=== PATIENT | female | born 1950 | race Caucasian/White ===

== ENCOUNTER 2018-02-20 10:04 | Emergency (ER) | payer OTHER, SELFPAY ==
[2018-02-20 10:13] VITALS: BP 150/91; PULSE 61; RESP 16; TEMP 36.6; O2SAT 96
--- NOTE | 2018-02-20 10:25 | DI.REPORT_ITS ---
SYMPTOM/DIAGNOSIS: MID POSTERIOR CALF PAIN, ? FB LEFT LEG: Two views. No acute fracture, dislocation, lytic or sclerotic lesion seen. No periosteal reaction is identified. No radiopaque foreign bodies are seen in the soft tissues. IMPRESSION: No acute abnormality.
--- NOTE | 2018-02-20 10:26 | ED.GENADUL ---
Disposition Clinical Impression: Left posterior calf abrasion Disposition: HOME Condition: Good Instructions: Abrasion (ED) Additional Instructions: Leave dressing in place for 2 days time, then removed, gentle soap and water and pat dry. Socially changed to regular band aid dressing for another 1-2 days time. Take antibiotics as prescribed. Follow up with regular doctor if not improving in 1 week's time. Return to the emergency department he developed redness, discharge from the wound, or any other acute concerns. Prescriptions: Cephalexin [Keflex] 500 mg PO TID 7 Days capsule Medical Decision Making - Radiology Data Radiology results: image reviewed - Medical Decision Making This is a 67-year-old female who suffered a laceration/abrasion to the left posterior calf on Tuesday. She presents for evaluation today. May be developing early infection. She was referred to x-ray to rule out foreign body, and film unremarkable. Discussed with her home management including antibiotics cover for infection. She takes antiplatelets and is frequent bruising. She is at risk for infected hematoma which I discussed with her. She will follow-up with PMD if not improving in 1 week's time. Discussed return precautions to the ER in the interim History of Present Illness - General Chief complaint: Laceration Stated complaint: L LEG LACERATION/SPLINTERS Time Seen by Provider: 02/20/18 10:16 Source: patient, RN notes reviewed Mode of arrival: ambulatory Limitations: no limitations - History of Present Illness Initial comments: Left leg pain and laceration: 67-year-old female with the abrupt onset of mild, achy, left leg pain that has been constant since she lacerated against a wooden 0. This occurred on Tuesday. Mild discomfort has been present since that time. No acute exacerbating or appearing factors. No wound discharge, fever, redness. Just for evaluation. States her immunizations are up-to-date. - Related Data Ascorbic Acid [Vitamin C] 1,000 mg PO DAILY 11/21/12 C-Pap 1 ea IH DIRECTED 11/21/12 Maalox Max Quick Dissolve T 2 tab PO PRN tab.chew 11/21/12 Multivitamin with Minerals [One Daily Plus Minerals] 1 tab PO DAILY 11/21/12 Thiamine HCl 1 tab PO DAILY 11/21/12 Vitamin B Complex & Vit C No.3 [B Complex with Vitamin C] 1 cap PO DAILY 11/21/12 Vitamin E 2 cap PO DAILY 11/21/12 Cholecalciferol (Vitamin D3) [Vitamin D3] 2,000 unit PO DAILY #100 tab-cap 08/13/14 Clonazepam [Klonopin] 1 mg PO HS #30 tab-cap 06/01/16 Etodolac 500 mg PO BID 08/23/16 Aspirin E.c. [Ecotrin] 325 mg PO DAILY #100 tabec 06/09/17 Ergocalciferol (Vitamin D2) [Vitamin D2] 50,000 unit PO twic a week #8 cap 06/24/17 Clopidogrel Bisulfate [Clopidogrel] 75 mg PO DAILY #90 tablet 07/06/17 Rosuvastatin [Crestor] 20 mg PO QPM #90 tab 07/06/17 Tolterodine CR [Detrol LA] 2 mg PO DAILY #90 tab-cap 07/07/17 Lidocaine [Lidoderm] 1 each TP As directed #1 box 08/18/17 Pregabalin [Lyrica] 100 - 300 mg PO DIRECTED #360 cap 09/22/17 Albuterol Sulfate [Proair Hfa] 2 puff IH Q6H PRN #1 inhaler 09/28/17 Cyanocobalamin (Vitamin B-12) [Cyanocobalamin Injection] 1,000 mcg IM MONTHLY #3 vial 09/28/17 Syringe W-Cannula,Disp, 3 ml [Syringe] 1 each IM MONTHLY #3 syringe 01/13/18 Cephalexin [Keflex] 500 mg PO TID 7 Days capsule 02/20/18 Allergies Allergy/AdvReac Type Severity Reaction Status Date / Time adhesive Allergy Intermediate Skin Rash Unverified 02/20/18 10:16 doxycycline Allergy Unknown HIVES Unverified 02/20/18 10:16 duloxetine [Duloxetine] AdvReac Severe AGITATION Unverified 02/20/18 10:16 Rppdqiz-[id number]-Hss Reductase AdvReac Severe Myalgias Unverified 02/20/18 10:16 Inhibitor paroxetine AdvReac Intermediate IRRITABILIT Unverified 02/20/18 10:16 Y gabapentin AdvReac Mild Interacts Unverified 02/20/18 10:16 with other prescribed medications steristrips Allergy Intermediate glue Uncoded 02/20/18 10:16 causes blisters sx azul Allergy Intermediate blisters Uncoded 08/06/18 10:16 METAL Allergy Mild Skin Rash Uncoded 02/20/18 10:16 Review of Systems Other: For systems reviewed, otherwise negative Past Medical History - Past Medical History Medical history: CVA/TIA, hyperlipidemia, hypertension General Exam - General Limitations: no limitations General appearance: alert, in no apparent distress - Head Head exam: Present: atraumatic, normocephalic - Eye Eye exam: Present: normal apperance, EOMI - Neck Neck exam: Present: normal inspection, full ROM - Respiratory Respiratory exam: Absent: respiratory distress - Extremities Exam Extremities exam: Present: full ROM, tenderness, normal capillary refill, other (The left posterior calf has a linear, vertically oriented healing abrasion. Centrally tender but without fluctuance or erythema. No open wound). Absent: pedal edema, joint swelling - Neurological Exam Neurological exam: Present: alert, oriented X3 - Psychiatric Psychiatric exam: Present: normal affect, normal mood - Skin Skin exam: Present: warm, dry, intact Course Vital Signs - 24 hr 02/20/18 10:13 Temperature 36.6 C Pulse 61 Respiratory 16 Rate Blood Pressure 150/91 Pulse Oximetry 96
== END 2018-02-20 11:05 | disposition home or self-care (01) ==
PROVIDERS: Emergency Provider Emergency Medicine; PCP Family Medicine
DX: S80.812A Abrasion, left lower leg, initial encounter (principal); W26.8XXA Contact with other sharp object(s), not elsewhere classified, initial encounter; Z79.02 Long term (current) use of antithrombotics/antiplatelets; I10 Essential (primary) hypertension
CPT/HCPCS: 99283; 73590

== ENCOUNTER 2019-02-15 08:12 | Outpatient (CLI) | payer OTHER, SELFPAY ==
--- NOTE | 2019-02-15 06:00 | DI.RAD_ITS ---
SYMPTOM/DIAGNOSIS: LUMBAR SPONDYLOSIS PAIN CLINIC: Fluoroscopy Time: 100.8 sec Images submitted from the Pain Clinic demonstrate needle positioning over the lower lumbar spine in connection with a lumbar radiofrequency ablation. Please see Dr. Herrera's procedure report for further information.
[2019-02-15 09:31] VITALS: BP 143/87; PULSE 55; RESP 20; TEMP 36.2; O2SAT 95
[2019-02-15] MEDS: Lactated Ringers 1,000 ML 80 ML IV (10:08)
[2019-02-15] MEDS: fentaNYL 100 MCG/2 ML VIAL IVP (10:08)
[2019-02-15] MEDS: Midazolam 2 MG/2 ML VIAL IVP (10:08)
[2019-02-15] MEDS: Lidocaine 2% Pres-Free 5 ML VIAL IJ (10:50)
[2019-02-15] MEDS: Bupivacaine 0.5% Pres-Free 10 ML VIAL IJ (10:50)
[2019-02-15] MEDS: methylPREDNISolone ACETATE 40 MG/ML VIAL IM (10:51)
[2019-02-15 10:52] VITALS: BP 174/88; PULSE 56; RESP 24; O2SAT 98
--- NOTE | 2019-02-15 10:57 | PDOC.PAIN_ITS ---
Pain Clinic Procedure Note Current Active Problems Problem Status Onset Lumbosacral spondylosis without myelopathy LUMBAR/SACRAL MEDIAL BRANCH RADIOFREQUENCY WITH THE [employer] MACHINE ISAIAS ACUÑA has been referred to the [facility] for radiofrequency treatment of chronic axial back pain. ISAIAS has had long standing back pain thought to be facet joint generated and which has been refractory to other therapies. Local anesthetic medial branch blocks or intra-articular facet joint injections resulted in ISAIAS reporting reduction of the usual axial component of pain for at least the duration of the local anesthetic effect. COMMENTS:She had >12 months of relief with the last bilateral L3-L5DR RFA. I added the bilateral S1 lateral branch RFA to give better ablation of the L5-S1 facet joint. Patient was interviewed and the medical record reviewed. There were no medical, pharmacologic, radiographic or other structural contraindications to attempting fluoroscopically guided radiofrequency treatment. Risks and expected side effects as well as potential benefit of the procedure were reviewed and voiced concerns addressed. The printed consent form was signed and witnessed. Standard time-out procedure was performed. Patient was placed in the prone position on the fluoroscopy table and automated blood pressure cuff and pulse oximeter applied. The skin entry points for approaching the anatomic target points of the segmental medial branches of bila teral L3-L5DR and the bilateral S1 lateral brancheswere identified with fluoroscopy and marked. Following thorough Chlorhexadine preparation of the skin and draping and 1% lidocaine infiltration of the skin entry points and subcutaneous tissues, a single 18 guage curved 10 cm 10mm active tip radiofrequency cannula was placed under fluoroscopic guidance along or across the anatomic course of each respective segmental medial branch. Each placement was stimulated at 50Hz and les then 0.5V for medial branch sensory localization and the at 2Hz and up to 3 times the sensory voltage without any evidence of distal myotomal stimulation. 1cc of 1% ;idocaine was injected at each site. At each placement a continuous mode radiofrequency treatment was done at 90 degrees C for 90secs. I then injected 1/4 cc of Depomedrol (40mg/cc) and 1 cc of 0.5% Bupivacaine to each segmental nerve. This radiofrequency treatment should result in the denervation of the bilateral L4-L5 and L5-S1 FACET JOINTS}. A total of 4 facets were expected to be denervated from today's treatment. Vital signs were stable throughout the procedure and were as recorded in the docflowsheet by the nursing staff. If given, dosages of intravenous drugs for anxiolysis and analgesia were documented in the Medication Administration Record (MAR). Follow up plans and appointments were discussed. Post procedure instruction was given as documented in the nursing documentation and having met discharge criteria, ISAIAS was discharged from the [facility]. COMMENTS: If she gets at least 6 months of relief with this procedure, we can repeat if without repeating the LMBBs. CC: Thad Bar MD
== END 2019-02-15 08:32 ==
PROVIDERS: PCP Family Medicine; Visit Provider Preventive Medicine Occupational Medicine
DX: M47.817 Spondylosis without myelopathy or radiculopathy, lumbosacral region (principal)
CPT/HCPCS: 64635 ×2; 64636 ×2; 72100; J1030; J2250; J3010

== ENCOUNTER 2019-04-02 00:36 | Outpatient (CLI) | payer OTHER, SELFPAY ==
--- NOTE | 2019-04-02 07:41 | DI.DEXA_ITS ---
SYMPTOM/DIAGNOSIS: SCREENING FOR OSTEOPOROSIS, Z13.820 DEXA SCAN: The scanogram is unremarkable. For the left hip,a T score of -0.1 and a Z score of 1.4 indicate osteopenia and an increased fracture risk. For the lumbar spine, a T score of -1.0 and a Z score of 1.1 are within the normal range. For the left forearm, a T score of -2.1 and a Z score of -0.1 are consistent with osteopenia and an increased fracture risk.
--- NOTE | 2019-04-02 08:10 | DI.MAMMO_ITS ---
SYMPTOM/DIAGNOSIS: SCREENING, Z12.31 MAMMOGRAMS: Mammograms were interpreted according to the usual protocol including computer analysis with CAD system, tomosynthesis and C view imaging. The breast tissue is of moderate radiodensity. There is no dominant mass. There is a question regarding interval development of a small region of nodularity in the medial portion of the left breast, the finding noted on the craniocaudad image. There are no suspicious calcifications. SUMMARY: Question interval development of a small region of nodularity. Further assessment with compression spot films is recommended. Category 0. Breast density, Category B. MQSA ASSESSMENT OF FINDINGS: Incomplete: Needs additional imaging evaluation. Category 0. Patient will receive a letter notifying them of these results. BI-RADS category B. There are scattered areas of fibroglandular density.
== END 2019-04-02 00:56 ==
PROVIDERS: PCP Family Medicine; Visit Provider Nurse Practitioner
DX: Z12.31 Encounter for screening mammogram for malignant neoplasm of breast (principal); R92.8 Other abnormal and inconclusive findings on diagnostic imaging of breast; M85.88 Other specified disorders of bone density and structure, other site
CPT/HCPCS: 77063; 77067; 77080

== ENCOUNTER 2019-04-03 00:50 | Outpatient (CLI) | payer OTHER, SELFPAY ==
--- NOTE | 2019-04-03 09:24 | DI.MAMMO_ITS ---
EXAM: US BREAST LT LIMITED CLINICAL HISTORY: F/U MAMMO, LT BREAST NODULE TECHNIQUE: Ultrasound performed using standard protocol. COMPARISON: None. FINDINGS: Additional mammographic views left breast and left breast ultrasound are interpreted in conjunction. These examinations were obtained to evaluate questionable area of asymmetric density seen on recent mammogram in left breast. Additional mammographic views fail to show a discrete mass. Breast ultraso und shows no evidence of mass or cyst. IMPRESSION: No specific evidence of malignancy at this time. Follow-up unilateral left breast mammogram recommen ded in 6 months. Category 3, breast density category B.
== END 2019-04-03 01:10 ==
PROVIDERS: PCP Family Medicine; Visit Provider Nurse Practitioner
DX: Z12.31 Encounter for screening mammogram for malignant neoplasm of breast (principal); R92.8 Other abnormal and inconclusive findings on diagnostic imaging of breast; N64.59 Other signs and symptoms in breast
CPT/HCPCS: 76642; 77063; 77067

== ENCOUNTER 2019-12-13 01:31 | Outpatient (CLI) | payer OTHER, SELFPAY ==
--- NOTE | 2019-12-13 09:27 | DI.RAD_ITS ---
EXAM: XR HIP LT COMPLETE AP PELVIS INDICATION: fell, lt hip pain, M25.552,W19.XXXA. COMPARISON: None TECHNIQUE: 2D digital imaging was performed. FINDINGS: No fracture or dislocation is seen. The hip joint spaces are well maintained. There is mild bilatera l acetabular spurring, greater on the right. There is mild SI joint spurring. Degenerative changes ar e noted in the lower lumbar spine. DATA REPOSITORY: RADIATION DOSE DELIVERED:
--- NOTE | 2019-12-13 09:50 | DI.RAD_ITS ---
EXAM: XR LUMBAR SPINE COMPLETE INDICATION: fell, PAIN,W19.XXXA. COMPARISON: No exams were available for comparison TECHNIQUE: 2D digital imaging was performed. FINDINGS: Vertebral bodies are well maintained in height. There is mild narrowing of the L2-3 disc space, ecce ntric toward the right with there is mild levoscoliosis. There is also moderate narrowing of the L4- 5 disc space, eccentric toward the left. The remaining disc spaces are relatively well maintained. Facet degenerative changes are prominent at L4-5 and L5-S1. No spondylolysis or spondylolisthesis is seen. There is surgical clips in the right upper quadrant. The aorta is calcified. The SI joints show minimal degenerative changes. IMPRESSION: Degenerative disc changes facet degenerative changes, greatest at L4-5. DATA REPOSITORY: RADIATION DOSE DELIVERED:
== END 2019-12-13 01:51 ==
PROVIDERS: PCP Family Medicine; Visit Provider Family Medicine
DX: M25.552 Pain in left hip (principal); M53.3 Sacrococcygeal disorders, not elsewhere classified; W19.XXXA Unspecified fall, initial encounter; M54.5 Low back pain; M51.37 Other intervertebral disc degeneration, lumbosacral region; M47.817 Spondylosis without myelopathy or radiculopathy, lumbosacral region
CPT/HCPCS: 72110; 73502

== ENCOUNTER 2019-12-19 02:09 | Outpatient (CLI) | payer OTHER, SELFPAY ==
--- NOTE | 2019-12-19 08:30 | DI.MAMMO_ITS ---
EXAM: MG MAMMO DIAGNOSTIC UNI CLINICAL HISTORY: 6 MO F/U LEFT BREAST, R92.8, Z09 TECHNIQUE: Mammograms were interpreted according to the usual protocol including computer analysis w [employer] CAD system, tomosynthesis and C-view imaging. COMPARISON: FINDINGS: Today's left breast mammogram was obtained to follow previously noted questionable area of asymmetric density seen in the left breast on prior examination of March 2019. No significant change or de creased prominence of questionable area of asymmetric density on today's examination. No new mass or or clumped microcalcification seen. IMPRESSION: No specific evidence of malignancy at this time. I would suggest that routine screening examinations resume with a bilateral mammogram in 6 months Category: BI-RADS Cat 3 - 6 month - Probably Benign Finding: Recommend follow-up mammography in 6 months Breast Density - Category B - Scattered areas of fibroglandular density:
== END 2019-12-19 02:29 ==
PROVIDERS: PCP Family Medicine; Visit Provider Nurse Practitioner
DX: Z12.31 Encounter for screening mammogram for malignant neoplasm of breast (principal); R92.8 Other abnormal and inconclusive findings on diagnostic imaging of breast; N64.59 Other signs and symptoms in breast
CPT/HCPCS: 77061; 77065; G0279

== ENCOUNTER 2020-01-22 08:20 | Outpatient (CLI) | payer OTHER, SELFPAY ==
[2020-01-22 08:34] VITALS: BP 136/83; PULSE 50; RESP 16; TEMP 36.5; O2SAT 98
--- NOTE | 2020-01-22 08:36 | PDOC.PAIN_ITS ---
Pain Clinic Procedure Note Procedure Note Procedure Note: Bilateral Lumbar Radiofrequency with Coolief Machine PROCEDURE NOTE Date of Service: January 22, 2020 Patient: ISAIAS ACUÑA Provider: Sienna Carmona MD Pre Operative Diagnosis: lumbar spnodylosis Post Operative Diagnosis: same as above Comment: patient had sustained pain relief from prior bilateral lumbar RFA. Last RFA was performed by Dr Herrera on 02/2019. Today will be her third time undergoing Coolief lumbar radiofrequency ablation for the medial branch nerves. Patient has a history of CVA (sppech disturbance and P1 segment stenosis on CTA) for which she is on plavix. According to TAMARA guidelines, she was asked to discontinue her Plavix for 7 days to minimize risk of bleeding. PROCEDURE: Radiofrequency Ablation of medial branches - BILATERAL L3 L4 L5- DR, S1 ISAIAS ACUÑA was brought into the fluoroscopy suite and positioned into the prone position on the fluoroscopy table and allowed to adjust to a position of comfort. A grounding pad was placed on the left lower abdomen. The lumbar region was widely prepped with a chloraprep solution, allowed to air dry and draped in standard sterile surgical fashion. Local anesthesia was provided by 15mL of 1% LIdocaine delivered with a 25g needle. A 17g 100mm radiofrequency introducer needle was placed to the planned anatomic targets guided with intermittent fluoroscopy with a perpendicular approach to terminally place at the junction of the superior articular process and the trans verse process of the left L3, L4, L5-DR and S1. The stylets were removed and radiofrequency probes with a 4mm active tip were then inserted. Needle tip position of the probes was verified in the AP, oblique, and lateral views. At each site, the medial branch nerve was stimulated at 2 Hz to a maximum 2 volts determined to finalize safe needle and electrode placement. The patient was awake and responsive during this portion of the procedure. Patient denied any motor stimulation down her left lower extremity. Each target was anesthetized with 1 mL of 2% Lidocaine for anesthesia for lesioning and then each target was lesioned at 80 degrees Celsius for 2 minutes and 30 seconds. Tissue impedences were noted to be between 250 and 500 Ohms. Electrodes and needles were then removed and bandages placed over the needle placement sites. Then using the same approach, a 17g 100mm radiofrequency introducer needle was place to the anatomic targets guided with fluoroscopy with a perpendicular a pproach to terminally place at the junction of the superior articular process and the transverse process of the right L3, L4, L5-DR and S1. Leonard were confirmed in AP, isplateral oblique views. At approximately 9:42AM, patient was observed to be moaning. RN asked patient what was wrong, and she replied it's nothing, just keep going. However, patient was seen to be uncomfortable in the prone position. Her vital signs remained stable. With multiple probing, patient finally answered my chest feels tight, like someone is stabbing me with a knife. She denied jaw pain, radiating arm pain. Her vitals were recorded as BP 168/97 and HR 51. At this point, she has already received 1mg of IV versed and 50mcg of IV fentanly for IV sedation for lumbar RFA. Patient maintained her mentation. Procedure was aborted due to patient's complaint of active and persistent chest pain that is new. Emergency response system was activated with staff arriving to fluoroscopic suite at 9:52AM. Patient was transferred to [facility] and wheeled to emergency room. Report was given to Emergency Room physician Dr Marcello Carter at 9:58AM. POST PROCEDURE EVALUATION: [] patient developed active chest pain mid-way through procedure. Left L3, L4, L5-Dr, S1 MBB was successfully ablated which results in denervation of L4-5, L5- S1 facet joints (total of 2 joints). Right sided lumbar MBB was not ablated. Procedure aborted. [] Ms Mcmullen was transferred to Emergency Room for further work up of chest pain. Her pile driver engineer Shahid was notified. [] Given patient's unreliable historian during procedure, not reporting her chest pain/pressure at immediate onset of symptoms, patient demanding pain clinic staff to continue with her procedure and refusing to go to emergency room while having active chest pain, for future interventional pain procedures, she would need medical clearance prior to scheduling. [] Patient has co-morbidities including history of CVA, likely CAD, history of syncope, which places her at high risk category, alternative therapeutic modalities should be maximized for pain relief I personally performed this entire procedure. Sienna Carmona MD Attending Physician
[2020-01-22] MEDS: Lactated Ringers 1,000 ML 80 ML IV (09:07)
[2020-01-22] MEDS: fentaNYL 100 MCG/2 ML VIAL IVP ×2 (09:20→09:36)
[2020-01-22] MEDS: Midazolam 2 MG/2 ML VIAL IVP (09:20)
[2020-01-22] MEDS: Lidocaine 2% Pres-Free 5 ML VIAL IJ (09:30)
[2020-01-22] MEDS: methylPREDNISolone ACETATE 40 MG/ML VIAL IJ (09:30)
[2020-01-22] MEDS: Lidocaine 1% Pres-Free 30 ML VIAL IJ (09:30)
[2020-01-22] MEDS: Bupivacaine 0.5% Pres-Free 10 ML VIAL IJ (09:30)
[2020-01-22 09:53] VITALS: BP 149/115; PULSE 57; RESP 18; O2SAT 99
--- NOTE | 2020-01-22 10:00 | DI.RAD_ITS ---
EXAM: XR PAIN CLINIC LUMBAR SP 2V CLINICAL HISTORY: Dx:Lumbar Spondylosis. TECHNIQUE: Fluoroscopy was provided for the referring physician for guidance with performing injecti on procedure. COMPARISON: No exams were available for comparison FINDINGS: Please see procedure note for details. Fluoro time: 64.6 sec RADIATION DOSE DELIVERED:
== END 2020-01-22 08:40 ==
PROVIDERS: PCP Family Medicine; Visit Provider Internal Medicine
DX: M47.816 Spondylosis without myelopathy or radiculopathy, lumbar region (principal)
CPT/HCPCS: 64635; 64636; 72100; J1030; J2250; J3010

== ENCOUNTER 2020-01-22 09:53 | Observation (INO) | payer OTHER, SELFPAY ==
[2020-01-22] VITALS (30 sets, daily range): BP systolic 121–164; BP diastolic 66–98; PULSE 46–62; RESP 9–23; TEMP 35.9–36.8; O2SAT 95–99
--- NOTE | 2020-01-22 | DI.NM_ITS ---
APPROVED REPORT Exam: Exercise Treadmill Patient Location: In-Patient Room/Bed: Stress Nurse: Ninfa Gamboa RN BMI: 36.47 Baseline Rhythm: Sinus Rhythm, Sinus Bradycardia Indications: Chest pain Medical History Medical History: Angina, Depression, HTN, Hyperlipidemia Cardiac Medications: Clopidogrel. Rosuvastatin., Allergies: Doxycycline. Duloxetine. Statins. Paroxetine. Gabapentin. Metal. Cardiac Risk Factors: HTN, Hyperlipidemia, FHX of CAD, Asthma, CVD, HUSSEIN Exercise History: Indeterminate Physical Disabilities: Back Lung Sounds: Clear to auscultation Heart Sounds: Regular Stress Test Details Test: Pharmacologic stress testing performed using 0.4 mg of regadenoson per 5 mL given IV over 10 s econds. Nuclear Acquisition: Rest Tc-99m/Stress Tc-99m 1 day Rest Isotope: Tc-99m Sestamibi. Dose: 10.5 Date: 01/22/2020 Injection Time: 1400 Stress Isotope: Tc-99m Sestamibi. Dose: 32.7 Date: 01/22/2020 Injection Time: 1520 HR Resting HR Supine: 55 bpm Max Heart Rate (APMHR): 149 bpm Target HR (85% APMHR): 126 bpm Max HR Achieved: 72 bpm % of APMHR: 48 Recovery HR: 64 bpm HR response to stress: Normal HR response to stress BP Resting BP Supine: 130/100 mmHg Max BP: 124/90 mmHg Recovery BP: 124/90 mmHg BP response to stress: Normal blood pressure response to stress. ECG Resting ECG: Sinus Rhythm Ectopy: none Stress ECG: Sinus Rhythm ST Change: none Arrhythmia: None Recovery ECG: Sinus Rhythm Recovery ST Change: none Clinical Stress Symptoms: No significant symptoms post Lexiscan injection Stress ECG Conclusion 1. Echocardiogram was within normal limits 2. This is a pharmacologic myocardial perfusion imaging study. The electrocardiographic portion of t he test was nondiagnostic due to inadequate heart rate 3. There were no significant dysrhythmias Stress Test Summary STAGE HR BP Symptoms NOTES Supine 55 130/100 1 min post Lexiscan injection 67 110/98 3 min post Lexiscan injection 72 116/90 6 min post Lexiscan injection 64 124/90 MPI Conclusion Normal myocardial perfusion without evidence of ischemia or infarction Calculated ejection fraction was 66% Radiologist Interpretation Radiologist agrees with Water Fabricator Operator's Interpretation. Radiologist Interpretation by: Alyssa Nguyen MD Interpretation Date/Time: 01/23/2020 08:43:21
--- NOTE | 2020-01-22 09:45 | RT.EKG_ITS ---
APPROVED REPORT Exam: Resting ECG Patient Location: E HR:51 bpm ECG Measurements Heart Rate 51 AXIS VT 175 P 50 QRSd 109 QRS -30 QT 454 T 36 QTc 418 <Conclusion> Sinus bradycardia...rate< 60 Left axis deviation...QRS axis (-30,-90) I have reviewed and interpreted ECG and agree with software generated interpretation.
[2020-01-22 10:12] LABS: Abs Immature Grans 0.01 k/cumm (0.0-0.09); Absolute Basophil Count 0.03 k/cumm (0.0-0.2); Absolute Eosinophil Count 0.18 k/cumm (0.0-0.7); Absolute Lymphocyte Count 1.39 k/cumm (1.2-3.4); Absolute Monocyte Count 0.44 k/cumm (0.11-0.7); Absolute Neutrophil Count 3.01 k/cumm (1.2-6.7); Basophils % 0.6; Eosinophils % 3.6; HCT 38.3 % (36.0-46.0); HGB 12.4 g/dL (12.0-15.5); Immature Grans % 0.2 %; Lymphocytes % 27.5; Mean Corp. HGB Concentration 32.4 g/dL (32.0-36.0); Mean Corpuscular Hemoglobin 28.4 pg (27.0-33.0); Mean Corpuscular Volume 87.6 fL (80-95); Mean Platelet Volume 9.3 fL (8.0-11.0); Monocytes % 8.7; Neutrophils % 59.4; Platelet Count 177 x1000/uL (130-400); RBC 4.37 m/cumm (4.00-5.20); RBC Distribution Width 14.6 % (11.7-14.6); White Blood Cell Count 5.06 k/cumm (4.4-10.8)
[2020-01-22 10:31] LABS: ALT 98 U/L (14-59); AST 54 U/L (15-37); Albumin 3.5 g/dL (3.4-5.0); Alkaline Phosphatase 66 U/L (46-116); Anion Gap 8.2 mmol/L (3-11); BUN 17 mg/dL (7-18); Bilirubin, Total 0.6 mg/dL (0.2-1.0); CO2 25.8 mmol/L (21.0-32.0); CREATININE 0.79 mg/dL (0.55-1.02); Calcium 9.2 mg/dL (8.5-10.1); Chloride 107 mmol/L (98-107); Glucose 115 mg/dL (74-106); PTT Activated 25.2 sec (21.0-31.4); Potassium 4.4 mmol/L (3.5-5.1); Sodium 141 mmol/L (136-145); Total Protein 6.5 g/dL (6.4-8.2); Troponin I < 0.05 ng/mL (<0.06)
--- NOTE | 2020-01-22 10:41 | DI.RAD_ITS ---
EXAM: XR PORTABLE CHEST AP CLINICAL HISTORY: chest pain TECHNIQUE: 2D digital imaging was performed. COMPARISON: No exams were available for comparison FINDINGS: LUNGS: Clear. No pleural abnormality seen. HEART: Normal. MEDIASTINUM: Normal. OTHER FINDINGS: Postsurgical changes of the right shoulder IMPRESSION: No acute pulmonary findings. DATA REPOSITORY: RADIATION DOSE DELIVERED:
[2020-01-22 10:49] LABS: D-Dimer 250 ng/mlFEU (<500)
--- NOTE | 2020-01-22 10:51 | ED.GENADUL_ITS ---
Discharge Plan Disposition Patient Disposition: [facility] INPATIENT Condition: Serious Discharge Details Chief Complaint: Chest Pain Clinical Impression: Chest pain Admit Date/Time: 01/22/20 11:31 Admit Provider: Dottie Colón Attending Provider: Dottie Colón Primary Care Provider: Thad Bar ED Provider: Marcello Carter Hospital Course Hospital Course: This is a 69 y.o female brought to emergency department after having CP during ablation for her lower back. They had completed the left side successfully, when starting right side she began to have a sharp chest pain prompting staff to alert a rapid response and brought patient to ED. In the ED she was found to have unremarkable labs, negative troponin, nondiagnostic ECG. She was admitted observation for stress test and overnight cardiac monitoring. Overnight she remained in normal sinus rhythm on the monitor with no further episodes of chest pain, she states her pain was reproducible at the time it occurred. her stress test was negative for evidence of ischemia and showed Normal myocardial perfusion without evidence of ischemia or infarction Calculated ejection fraction was 66%. she was advised to resume usual medications and follow up outpatient with pcp. her spinal ablation with be rescheduled through the pain clinic. they will call her to reschedule. discharge plan discussed with dr Colón who is in agreement. Discharge Instructions Instructions: Chest Wall Pain (GEN) Additional Instructions: continue usual medications your pain clinic appointment will be rescheduled, they will call you with appointment. Forms: Nursing Discharge Form Referrals: [facility] [Provider Group] (The office will give you a call) China Myers, LOT PORTER [NURSE PRACTITIONER] - 01/28/20 11:00 am Discharge Data Discharge Date/Time-TO BE ENTERED AT DEPARTURE: 01/22/20 12:16 Medical Decision Making 1104??69-year-old female multi medical problems including history of art eriosclerotic cardiovascular disease, prior CVA, hypertension, hyperlipidemia, here with chest pain during outpatient lumbar spine ablation pain procedure. Chest pain now resolved. Patient is bradycardic and normotensive, saturating well in no respiratory distress. Consider ACS. ECG nondiagnostic. Initial troponin negative. I considered pulmonary embolism: D-dimer negative. Mild elevation of AST and ALT noted. Chest x-ray, portable, was reviewed and interpreted by me: Nondiagnostic, no acute cardiopulmonary disease noted. Official radiology interpretation pending. I called and spoke with Dr. Colón discussed ED presentation and course, she is looking into potential stress test availability for today. 1115??patient given Plavix 300 mg and aspirin 81 mg. 1128??I spoke with Dr. Colón who will plan to admit the patient with plan for stress test and cardiac monitoring overnight. Lab Data Lab results reviewed: Yes I reviewed the patient's lab results. ECG Data Attestation: I personally reviewed and interpreted this ECG (s) as follows: (Bradycardia, see report) HPI General Mode of arrival: wheelchair . Date/Time Provider Initiated Documentation: 01/22/20 09:54 . Limitations to Documentation: no limitations . Information obtained by: patient and RN/MD . HPI Narrative: 69-year-old female with multiple medical problems including listed prior history of arteriosclerotic cardiovascular disease, CVA, hypertension, hyperlipidemia, here with chief complaint of chest discomfort. Patient was having outpatient pain procedure, lumbar spine ablation, and was noted to develop central chest discomfort during the procedure. She was sent here post procedure for evaluation. Patient notes pain came on during procedure. Pain described as sharp and focal left parasternal with no radiation. No modifiers. Pain now resolved. Of note, patient has been off Plavix for 1 week preprocedurally. No associated shortness of breath. No calf pain. Patient denies history of cardiac surgery or cardiac stenting. Related Data Home Medications Medication Instructions Recorded Confirmed B Complex Plus Vitamin C 1 cap PO DAILY 11/21/12 01/28/20 C-Pap 1 ea INHALATION DIRECTED 11/21/12 01/28/20 Maalox Max Quick Dissolve T 2 tab PO PRN tab.chew 11/21/12 01/28/20 ascorbic acid (vitamin C) 1,000 mg PO DAILY 11/21/12 01/28/20 multivitamin with minerals [One 1 tab PO DAILY 11/21/12 01/28/20 Daily Plus Minerals] thiamine HCl (vitamin B1) 1 tab PO DAILY 11/21/12 01/28/20 vitamin E 2 cap PO DAILY 11/21/12 01/28/20 albuterol sulfate [ProAir HFA] 2 puff INHALATION Q6H PRN #1 09/28/17 01/28/20 inhaler BD Blunt Plastic Cannula #3 syringe 01/13/18 01/28/20 clopidogrel 75 mg tablet 75 mg PO DAILY #90 tab 08/30/19 01/28/20 pregabalin 100 mg capsule 100 - 300 mg PO DIRECTED #360 08/30/19 01/28/20 cap rosuvastatin 20 mg tablet 20 mg PO QPM #90 tab 08/30/19 01/28/20 tolterodine 2 mg capsule,extended 2 mg PO DAILY #90 tab-cap 08/30/19 01/28/20 release 24 hr cyanocobalamin (vitamin B-12) 1,000 mcg IM MONTHLY #3 vial 10/26/19 01/28/20 1,000 mcg/mL injection solution ergocalciferol (vitamin D2) 1,250 50,000 unit PO twic a week #8 cap 11/30/19 01/28/20 mcg (50,000 unit) capsule clonazepam 1 mg tablet See Rx Instructions .ROUTE HS #60 12/06/19 01/28/20 tab-cap cholecalciferol (vitamin D3) 50 2,000 unit PO DAILY #90 tab-cap 01/15/20 01/28/20 mcg (2,000 unit) capsule hydrocodone-acetaminophen 1 tab PO DAILY PRN PRN 01/22/20 01/28/20 levothyroxine 25 mcg PO DAILY 01/22/20 01/28/20 iron polysacch cplx 150 mg 1 cap PO DAILY #90 cap 01/28/20 01/28/20 iron-vit B12 25 mcg-folic acid 1 mg capsule metformin 500 mg tablet,extended 1,500 mg PO DAILY tab 01/28/20 01/28/20 release 24 hr Previous Rx's Medication Instructions Recorded albuterol sulfate [ProAir HFA] 2 puff INHALATION Q6H PRN #1 09/28/17 inhaler BD Blunt Plastic Cannula #3 syringe 01/13/18 clopidogrel 75 mg tablet 75 mg PO DAILY #90 tab 08/30/19 pregabalin 100 mg capsule 100 - 300 mg PO DIRECTED #360 08/30/19 cap rosuvastatin 20 mg tablet 20 mg PO QPM #90 tab 08/30/19 tolterodine 2 mg capsule,extended 2 mg PO DAILY #90 tab-cap 08/30/19 release 24 hr cyanocobalamin (vitamin B-12) 1,000 mcg IM MONTHLY #3 vial 10/26/19 1,000 mcg/mL injection solution ergocalciferol (vitamin D2) 1,250 50,000 unit PO twic a week #8 cap 11/30/19 mcg (50,000 unit) capsule clonazepam 1 mg tablet See Rx Instructions .ROUTE HS #60 12/06/19 tab-cap cholecalciferol (vitamin D3) 50 2,000 unit PO DAILY #90 tab-cap 01/15/20 mcg (2,000 unit) capsule iron polysacch cplx 150 mg 1 cap PO DAILY #90 cap 01/28/20 iron-vit B12 25 mcg-folic acid 1 mg capsule Allergies Allergy/AdvReac Type Severity Reaction Status Date / Time adhesive Allergy Intermediate Skin Rash Verified 01/28/20 11:08 doxycycline Allergy Unknown HIVES Verified 01/28/20 11:08 duloxetine [Duloxetine] AdvReac Severe AGITATION Verified 01/28/20 11:08 Nbsoqfb-Qod-Zlg Reductase AdvReac Severe Myalgias Verified 01/28/20 11:08 Inhibitor paroxetine AdvReac Intermediate IRRITABILIT Verified 01/28/20 11:08 Y gabapentin AdvReac Mild Interacts Verified 01/28/20 11:08 with other prescribed medications steristrips Allergy Intermediate glue Uncoded 01/22/20 08:30 causes blisters sx azul Allergy Intermediate blisters Uncoded 01/22/20 08:30 METAL Allergy Mild Skin Rash Uncoded 01/22/20 08:30 General Stated Complaint: Chest Pain VERO: 2 Review of Systems All systems reviewed & are unremarkable except as noted in HPI and below Constitutional Constitutional: Reports fatigue Cardiovascular Cardiovascular: Reports as per HPI Endocrine Endocrine: Reports fatigue PFSH Medical History Achilles tendon disorder ASCVD (arteriosclerotic cardiovascular disease) Asthma Balance problem Carpal tunnel syndrome of right wrist Cerebrovascular accident (CVA) due to stenosis of posterior cerebral artery Depressive disorder Disorder of vitamin B12 Essential hypertension H/O ETOH abuse Headache Herpes zoster Hirsutism History of alcohol abuse (Inactive 05/13/15) not drinking at this time Hyperlipidemia Hyperparathyroidism Low back pain with sciatica Low vitamin D level Migraine Neck pain Non-alcoholic fatty liver disease NPDR (nonproliferative diabetic retinopathy) Obesity HUSSEIN (obstructive sleep apnea) Primary fibromyalgia syndrome Retinal detachment Shoulder pain Vasodepressor syncope Visual disturbance Surgical History Abdominal hysterectomy (~1985) endometriosis; 1 ovary remains Arthroscopy, Shoulder (~07/2008) RIGHT Cholecystectomy (~1982) EXCISION OF SHOULDER (~09/2006) EXCISION OF RIGHT DISTAL CALVICLE Fracture, Open Treatment (~04/2006) INT FIX FINGER Gastric Bypass (~2001) History of gastric bypass (Inactive) Endocrinology following vitamin D, Vitamin B12 & iron PINKY REPAIR LEFT Family History Mother , 87 Essential hypertension Heart disease Hyperlipidemia Asthma Lung cancer Father , 58 Heart disease Hyperlipidemia Alcohol abuse Brother Heart disease Substance abuse Maternal Grandfather Hyperlipidemia Paternal Grandfather No problems noted. Maternal Grandmother Kidney disease Paternal Grandmother No problems noted. Sister No problems noted. Social History Smoking/Tobacco Use Status: Former Tobacco Use Quit Date: 07/18/83 Alcohol Intake: former Drug use: Never Substance use type: does not use Caregiver/Support person: No Household members: spouse Housing: other Details: RV Pets and animals: Yes Pets and animals: dog(s) Sexually active: No Do you think of yourself as: straight/heterosexual Current gender identity: female What is your relationship status?: How often do you talk on the phone with friends or family?: three or more times per week How often do you get together with friends or relatives?: three or more times per week How often do you attend spiritism or anabaptist services?: decline to answer Do you belong to any clubs or organized social groups?: no Panel score (0-1 are the most socially isolated patients): 2 What type of physical activity do you participate in: walking Duration: 15-30 minutes/day Frequency: daily Jodi/Latter-Day: None Special jodi needs: No Seatbelt use: always Drive intox or ride 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 Do you feel safe at home: Yes Do you feel safe in your relationship?: Yes Exam Const General: cooperative and no acute distress HENMT Mouth: moist mucous membranes Eyes Conjunctivae: normal conjunctivae Sclera: normal sclerae Neck Neck: trachea midline and supple Resp Auscultation: clear to auscultation bilaterally, no rales, no rhonchi and no wheezes Cardio Jugular venous pressure: no JVD Rate: bradycardic (50 bpm) Rhythm: regular rhythm Heart Sounds: no murmurs Pulses: radial pulses present bilaterally 1+ GI Palpation: soft, not firm, no guarding, no masses, not rigid and nontender Skin General skin exam: no rashes or lesions noted Neuro General: patient alert, patient awake, patient oriented x3 and tone normal Extrem General: no calf tenderness and edema Laterality: bilateral (Trace) Psych Appearance: grossly normal Mental Status: mental status grossly normal Speech and Movement: speech and movement normal Course Vital Signs Vital signs: Vital Signs Respiratory Rate 23 01/22/20 09:58 Temperature 36.6 C 01/22/20 10:00 Temperature Source Skin 01/22/20 10:00 Pulse 47 L 01/22/20 10:31 Pulse 48 L 01/22/20 10:40 Respiratory Rate 16 01/22/20 10:40 Respiratory Effort Non-Labored 01/22/20 10:17 Respiratory Depth Normal 01/22/20 10:17 Respiratory Pattern Normal 01/22/20 10:17 Blood Pressure 141/86 H 01/22/20 10:31 Blood Pressure Mean 100 01/22/20 10:31 Blood Pressure Position Supine 01/22/20 10:00 Pulse Oximetry 96 01/22/20 10:40 Oxygen Delivery Method Room Air 01/22/20 10:00 Oxygen Flow Rate 0 01/22/20 10:00 Pain Level 6 01/22/20 10:17 Lab/Test Results Lab/Test Results: Laboratory Tests Range/Units 01/22/20 01/22/20 01/22/20 10:00 10:00 10:00 WBC (4.4-10.8) k/cumm 5.06 RBC (4.00-5.20) m/cumm 4.37 Hgb (12.0-15.5) g/dL 12.4 Hct (36.0-46.0) % 38.3 MCV (80-95) fL 87.6 MCH (27.0-33.0) pg 28.4 MCHC (32.0-36.0) g/dL 32.4 RDW (11.7-14.6) % 14.6 Plt Count (130-400) x1000/uL 177 MPV (8.0-11.0) fL 9.3 Immature Gran % % 0.2 Neutrophils % 59.4 Lymphocytes % 27.5 Monocytes % 8.7 Eosinophils % 3.6 Basophils % 0.6 Absolute Neutrophils (1.2-6.7) k/cumm 3.01 Absolute Lymphocytes (1.2-3.4) k/cumm 1.39 Absolute Monocytes (0.11-0.7) k/cumm 0.44 Absolute Eosinophils (0.0-0.7) k/cumm 0.18 Absolute Basophils (0.0-0.2) k/cumm 0.03 APTT (21.0-31.4) sec 25.2 D-Dimer (<500) ng/mlFEU 250 Sodium (136-145) mmol/L 141 Potassium (3.5-5.1) mmol/L 4.4 Chloride (98-107) mmol/L 107 Carbon Dioxide (21.0-32.0) mmol/L 25.8 Anion Gap (3-11) mmol/L 8.2 BUN (7-18) mg/dL 17 Creatinine (0.55-1.02) mg/dL 0.79 Estimated GFR/1.73 m2 (mL/min/1.73m2) >= 60.00 Glucose (74-106) mg/dL 115 H Calcium (8.5-10.1) mg/dL 9.2 Magnesium (1.8-2.4) mg/dL 2.0 Total Bilirubin (0.2-1.0) mg/dL 0.6 AST (15-37) U/L 54 H ALT (14-59) U/L 98 H Alkaline Phosphatase (46-116) U/L 66 Troponin I (<0.06) ng/mL < 0.05 Total Protein (6.4-8.2) g/dL 6.5 Albumin (3.4-5.0) g/dL 3.5
[2020-01-22] MEDS: Clopidogrel 300 MG TAB PO (11:13)
[2020-01-22] MEDS: Aspirin 81 MG CHEW PO (11:32)
[2020-01-22 13:55] LABS: TSH 2.06 uIU/mL (0.36-3.74)
--- NOTE | 2020-01-22 14:30 | W.PM.HP.N ---
Date of service: 01/22/20 Time of Service: 14:31 Assessment and Plan Assessment and plan (1) Chest pain: Start date: 01/22/20 Start time: 14:40 Status: Acute Assessment and plan: On teley for CP during ablation to lower back. CP resolved. ECG nondiagnostic. Stress scheduled for today. Troponins negative (2) Obstructive sleep apnea syndrome: Start date: 01/22/20 Start time: 14:46 Status: Acute Assessment and plan: Using Bipap from home. Continue bipap (3) DVT prophylaxis: Start date: 01/22/20 Start time: 14:47 Status: Acute Assessment and plan: Heparin subcu Above case discussed with Dr. Colón who is in agreement. History of Present Illness History of Present Illness Chief Complaint: CHEST PAIN Narrative: 69 y.o female brought to emergency department after having CP during ablation for her lower back. Left side was successful, when starting right side she began to have a sharp chest pain prompting staff to alert MANUFACTURING COST ESTIMATOR and bring patient to ED. In the ED she was found to have unremarkable labs, negative troponin, nondiagnostic ECG. She has been asked to be admitted for Stress test and overnight cardiac monitoring. She is having a stress today which will be read in the morning and possible discharge after. She denies CP, SOB,N/V/D Review of Systems All systems reviewed & are unremarkable except as noted in HPI and below PFSH Medical History Achilles tendon disorder ASCVD (arteriosclerotic cardiovascular disease) Asthma Balance problem Carpal tunnel syndrome of right wrist Cerebrovascular accident (CVA) due to stenosis of posterior cerebral artery Depressive disorder Disorder of vitamin B12 Essential hypertension H/O ETOH abuse Headache Herpes zoster Hirsutism History of alcohol abuse (Inactive 05/13/15) not drinking at this time Hyperlipidemia Hyperparathyroidism Low back pain with sciatica Low vitamin D level Migraine Neck pain Non-alcoholic fatty liver disease NPDR (nonproliferative diabetic retinopathy) Obesity HUSSEIN (obstructive sleep apnea) Primary fibromyalgia syndrome Retinal detachment Shoulder pain Vasodepressor syncope Visual disturbance Surgical History Abdominal hysterectomy (~1985) endometriosis; 1 ovary remains Arthroscopy, Shoulder (~07/2008) RIGHT Cholecystectomy (~1982) EXCISION OF SHOULDER (~09/2006) EXCISION OF RIGHT DISTAL CALVICLE Fracture, Open Treatment (~04/2006) INT FIX FINGER Gastric Bypass (~2001) History of gastric bypass (Inactive) Endocrinology following vitamin D, Vitamin B12 & iron PINKY REPAIR LEFT Family History Mother , 87 Essential hypertension Heart disease Hyperlipidemia Asthma Lung cancer Father , 58 Heart disease Hyperlipidemia Alcohol abuse Brother Heart disease Substance abuse Maternal Grandfather Hyperlipidemia Paternal Grandfather No problems noted. Maternal Grandmother Kidney disease Paternal Grandmother No problems noted. Sister No problems noted. Social History Smoking/Tobacco Use Status: Former Tobacco Use Quit Date: 07/18/83 Alcohol Intake: former Drug use: Never Substance use type: does not use Caregiver/Support person: No Household members: spouse Housing: other Details: RV Pets and animals: Yes Pets and animals: dog(s) Sexually active: No Do you think of yourself as: straight/heterosexual Current gender identity: female What is your relationship status?: How often do you talk on the phone with friends or family?: three or more times per week How often do you get together with friends or relatives?: three or more times per week How often do you attend congregation or buddhism services?: decline to answer Do you belong to any clubs or organized social groups?: no Panel score (0-1 are the most socially isolated patients): 2 What type of physical activity do you participate in: walking Duration: 15-30 minutes/day Frequency: daily Jodi/Jainism: None Special jodi needs: No Seatbelt use: always Drive intox or ride w/intox 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 Do you feel safe at home: Yes Do you feel safe in your relationship?: Yes Meds Home Medications and Allergies Home Medications Medication Instructions Recorded Confirmed Type B Complex Plus Vitamin C 1 cap PO DAILY 11/21/12 01/22/20 History C-Pap 1 ea INHALATION DIRECTED 11/21/12 01/22/20 History Maalox Max Quick Dissolve T 2 tab PO PRN tab.chew 11/21/12 01/22/20 History ascorbic acid (vitamin C) 1,000 mg PO DAILY 11/21/12 01/22/20 History multivitamin with minerals [One 1 tab PO DAILY 11/21/12 01/22/20 History Daily Plus Minerals] thiamine HCl (vitamin B1) 1 tab PO DAILY 11/21/12 01/22/20 History vitamin E 2 cap PO DAILY 11/21/12 01/22/20 History albuterol sulfate [ProAir HFA] 2 puff INHALATION Q6H PRN #1 09/28/17 01/22/20 Rx inhaler BD Blunt Plastic Cannula #3 syringe 01/13/18 01/22/20 Rx clopidogrel 75 mg tablet 75 mg PO DAILY #90 tab 08/30/19 01/22/20 Rx pregabalin 100 mg capsule 100 - 300 mg PO DIRECTED #360 08/30/19 01/22/20 Rx cap rosuvastatin 20 mg tablet 20 mg PO QPM #90 tab 08/30/19 01/22/20 Rx tolterodine 2 mg capsule,extended 2 mg PO DAILY #90 tab-cap 08/30/19 01/22/20 Rx release 24 hr cyanocobalamin (vitamin B-12) 1,000 mcg IM MONTHLY #3 vial 10/26/19 01/22/20 Rx 1,000 mcg/mL injection solution ergocalciferol (vitamin D2) 1,250 50,000 unit PO twic a week #8 cap 11/30/19 01/22/20 Rx mcg (50,000 unit) capsule clonazepam 1 mg tablet See Rx Instructions .ROUTE HS #60 12/06/19 01/22/20 Rx tab-cap cholecalciferol (vitamin D3) 50 2,000 unit PO DAILY #90 tab-cap 01/15/20 01/22/20 Rx mcg (2,000 unit) capsule hydrocodone-acetaminophen 1 tab PO DAILY PRN PRN 01/22/20 01/22/20 History iron ps [id number] acid 1 cap PO DAILY 01/22/20 01/22/20 History [Poly-Iron 150 Forte] levothyroxine 25 mcg PO DAILY 01/22/20 01/22/20 History Allergies Allergy/AdvReac Type Severity Reaction Status Date / Time adhesive Allergy Intermediate Skin Rash Unverified 01/22/20 08:30 doxycycline Allergy Unknown HIVES Unverified 01/22/20 08:30 duloxetine [Duloxetine] AdvReac Severe AGITATION Unverified 01/22/20 08:30 Ozeefyv-Gjh-Dla Reductase AdvReac Severe Myalgias Unverified 01/22/20 08:30 Inhibitor paroxetine AdvReac Intermediate IRRITABILIT Unverified 01/22/20 08:30 Y gabapentin AdvReac Mild Interacts Unverified 01/22/20 08:30 with other prescribed medications steristrips Allergy Intermediate glue Uncoded 01/22/20 08:30 causes blisters sx azul Allergy Intermediate blisters Uncoded 01/22/20 08:30 METAL Allergy Mild Skin Rash Uncoded 01/22/20 08:30 Exam Narrative Exam Narrative: Elderly female with spunk AAOx3 lying in bed stating her back hurts if she moves. Normocephalic, atraumatic, PERRLA, EOMI, LSC, RRR no ecopty or murmur. Abd soft nontender, bsx4. Back swollen to left from ablation, right with bandaid from attempted. Skin intact no clubbing, cyanosis or edema. Appropriate mood. Results Labs Result diagrams: 01/22/20 10:00 01/22/20 10:00 Labs: Laboratory Results - last 24 hr 01/22/20 01/22/20 01/22/20 10:00 10:00 10:00 WBC 5.06 RBC 4.37 Hgb 12.4 Hct 38.3 MCV 87.6 MCH 28.4 MCHC 32.4 RDW 14.6 Plt Count 177 MPV 9.3 Immature Gran % 0.2 Neutrophils % 59.4 Lymphocytes % 27.5 Monocytes % 8.7 Eosinophils % 3.6 Basophils % 0.6 Absolute Neutrophils 3.01 Absolute Lymphocytes 1.39 Absolute Monocytes 0.44 Absolute Eosinophils 0.18 Absolute Basophils 0.03 APTT 25.2 D-Dimer 250 Sodium 141 Potassium 4.4 Chloride 107 Carbon Dioxide 25.8 Anion Gap 8.2 BUN 17 Creatinine 0.79 Estimated GFR/1.73 m2 >= 60.00 Glucose 115 H Calcium 9.2 Magnesium 2.0 Total Bilirubin 0.6 AST 54 H ALT 98 H Alkaline Phosphatase 66 Troponin I < 0.05 Total Protein 6.5 Albumin 3.5 TSH 2.06 Last Vital Signs Temp 36.5 C 01/22/20 13:13 Pulse 47 L 01/22/20 13:13 Resp 16 01/22/20 13:13 BP 159/98 H 01/22/20 13:13 Pulse Ox 98 01/22/20 13:13 COVID-19 Screening Have you, or has anyone in your household, traveled outside of [place] in the last 14 days?: YES Had IN PERSON contact w/suspected or confirmed C-19 person: No
[2020-01-22] MEDS: Regadenoson 0.4 MG/5 ML SYR IVP (15:59)
[2020-01-22] MEDS: HYDROcodone 5/Acetaminophen 325 TAB PO (16:35)
[2020-01-22] MEDS: Heparin 5,000 UNITS/ML VIAL 5000 UNITS SC ×2 (16:36→21:19)
[2020-01-22] MEDS: Diclofenac 1% Gel 100 GM TUBE TP ×2 (16:36→20:02)
[2020-01-22] MEDS: ROSUVASTATIN 20 MG TAB PO (20:02)
[2020-01-22] MEDS: clonazePAM 1 MG TAB PO (21:18)
[2020-01-22] MEDS: Pregabalin 100 MG CAP 300 MG PO (21:19)
[2020-01-22 22:38] LABS: COVID-19 RT-PCR UVMMC Result Negative (Negative)
[2020-01-23] MEDS: Heparin 5,000 UNITS/ML VIAL 5000 UNITS SC (06:33)
[2020-01-23] MEDS: Levothyroxine 25 MCG TAB PO (06:33)
[2020-01-23 07:29] VITALS: BP 130/79; PULSE 56; RESP 18; TEMP 36.7; O2SAT 95
[2020-01-23] MEDS: Diclofenac 1% Gel 100 GM TUBE TP (08:38)
[2020-01-23] MEDS: Tolterodine 2 MG CAPCR PO (08:38)
[2020-01-23] MEDS: Pregabalin 100 MG CAP PO (08:38)
[2020-01-23] MEDS: Clopidogrel 75 MG TAB PO (08:38)
--- NOTE | 2020-01-23 09:38 | INITIAL_ITS ---
- If Service Date Differs Date of service: 01/23/20 Time of Service: 09:38 Care Management Initial Assess REASON FOR HOSPITALIZATION:: Chest Pain PAST MEDICAL HISTORY/PAST SURGICAL HISTORY:: Medical History . Achilles tendon disorder. ASCVD (arteriosclerotic cardiovascular disease). Asthma. Balance problem. Carpal tunnel syndrome of right wrist. Cerebrovascular accident (CVA) due to stenosis of posterior cerebral artery. Depressive disorder. Disorder of vitamin B12. Essential hypertension. H/O ETOH abuse. Headache. Herpes zoster. Hirsutism. History of alcohol abuse (Inactive 05/13/15). not drinking at this time. Hyperlipidemia. Hyperparathyroidism. Low back pain with sciatica. Low vitamin D level. Migraine. Neck pain. Non-alcoholic fatty liver disease. NPDR (nonproliferative diabetic retinopathy). Obesity. HUSSEIN (obstructive sleep apnea). Primary fibromyalgia syndrome. Retinal detachment. Shoulder pain. Vasodepressor syncope. Visual disturbance. Surgical History . Abdominal hysterectomy (~1985). endometriosis; 1 ovary remains. Arthroscopy, Shoulder (~07/2008). RIGHT. Cholecystectomy (~1982). EXCISION OF SHOULDER (~09/2006). EXCISION OF RIGHT DISTAL CALVICLE. Fracture, Open Treatment (~04/2006). INT FIX FINGER. Gastric Bypass (~2001). History of gastric bypass (Inactive). Endocrinology following vitamin D, Vitamin B12 & iron. PINKY REPAIR. LEFT PREVIOUS FUNCTIONAL STATUS/SOCIAL/FAMILY SUPPORTS:: Kemi and her recently (in November) returned to [place] from [place] where they have been for the past couple of years. They are currently living in their which is parked in [place]. They hope to be moving into their son's mobile home soon. Kemi is and her is retired from the [employer]. She is independent with all acre and activities and receives no community services. CURRENT FUNCTIONAL STATUS:: Kemi was sitting up in bed when CM met with her. She stated that she will be discharged after lunch today. She does not anticipate neeeding any services. ADVANCE DIRECTIVES:: none on file Has patient been provided with info about the portal/API?: Yes Did the patient sign up for the portal?: Yes (in past) CODE STATUS:: Full Code INSURANCE COVERAGE / FINANCIAL ISSUES:: [facility] CURRENT HOME/COMMUNITY SERVICES/EQUIPMENT:: none PRIMARY CARE PHYSICIAN:: Thad Bar POTENTIAL DISCHARGE NEEDS:: Follow up with PCP and discharge plan of care PATIENT/FAMILY EDUCATION NEEDS:: Discharge plan, limitations, follow up plan and Ask Me Three. TRANSPORTATION:: via private vehicle with family PLAN:: Kemi will be discharged home later today. She will follow up with her PCP and discharge plan of care. Kemi will transport via private vehicle with her .
--- NOTE | 2020-01-23 11:37 | W.PM.DS.N ---
Date of service: 01/23/20 Time of Service: 11:38 DS: Diagnosis Discharge Diagnosis (1) Chest pain: Status: Acute (2) Obstructive sleep apnea syndrome: Status: Acute Discharge Plan Disposition Patient Disposition: HOME Condition: Serious Discharge Details Chief Complaint: Chest Pain Clinical Impression: Chest pain Reason For Visit: CHEST PAIN Admit Date/Time: 01/22/20 11:31 Admit Provider: Dottie Colón Attending Provider: Dottie Colón Primary Care Provider: Thad Bar ED Provider: Marcello Carter [facility] Course Hospital Course: This is a 69 y.o female brought to emergency department after having CP during ablation for her lower back. They had completed the left side successfully, when starting right side she began to have a sharp chest pain prompting staff to alert a rapid response and brought patient to ED. In the ED she was found to have unremarkable labs, negative troponin, nondiagnostic ECG. She was admitted observation for stress test and overnight cardiac monitoring. Overnight she remained in normal sinus rhythm on the monitor with no further episodes of chest pain, she states her pain was reproducible at the time it occurred. her stress test was negative for evidence of ischemia and showed Normal myocardial perfusion without evidence of ischemia or infarction Calculated ejection fraction was 66%. she was advised to resume usual medications and follow up outpatient with pcp. her spinal ablation with be rescheduled through the pain clinic. they will call her to reschedule. discharge plan discussed with dr Colón who is in agreement. Home Meds and New Rx's Prescriptions: Continued cyanocobalamin (vitamin B-12) 1,000 mcg/mL solution 1,000 mcg IM MONTHLY Qty: 3 RF: 4 ergocalciferol (vitamin D2) [Vitamin D2] 1,250 mcg (50,000 unit) capsule 50,000 unit PO twic a week Qty: 8 RF: 0 ascorbic acid (vitamin C) 1,000 MG tablet 1,000 mg PO DAILY RF: 0 thiamine HCl (vitamin B1) 100 MG tablet 1 tab PO DAILY RF: 0 multivitamin with minerals [One Daily Plus Minerals] 1 EACH tablet 1 tab PO DAILY RF: 0 vitamin E 400 UNIT capsule 2 cap PO DAILY RF: 0 B Complex Plus Vitamin C 1 EACH capsule 1 cap PO DAILY RF: 0 C-PAP 1 ea Inhalation DIRECTED RF: 0 MAALOX MAX QUICK DISSOLVE T 1 EACH TAB.CHEW 2 tab PO PRN RF: 0 albuterol sulfate [ProAir HFA] 8.5 GM HFA aerosol inhaler 2 puff Inhalation Q6H PRN Qty: 1 RF: 1 (DME) BD Blunt Plastic Cannula 1 EACH syringe 1 ea IM MONTHLY Qty: 3 RF: 4 clopidogrel 75 mg tablet 75 mg PO DAILY Qty: 90 RF: 3 rosuvastatin [Crestor] 20 mg tablet 20 mg PO QPM Qty: 90 RF: 3 tolterodine [Detrol LA] 2 mg capsule,extended release 24hr 2 mg PO DAILY Qty: 90 RF: 3 pregabalin [Lyrica] 100 mg capsule 100 - 300 mg PO DIRECTED Qty: 360 RF: 2 clonazepam [Klonopin] 1 mg tablet See Rx Instructions .ROUTE HS Qty: 60 RF: 2 cholecalciferol (vitamin D3) [Vitamin D3] 50 mcg (2,000 unit) capsule 2,000 unit PO DAILY Qty: 90 RF: 4 levothyroxine 25 mcg tablet 25 mcg PO DAILY RF: 0 Poly-Iron 150 Forte 150-25-1 mg-mcg-mg capsule 1 cap PO DAILY RF: 0 hydrocodone-acetaminophen 5-325 mg tablet 1 tab PO DAILY PRN PRNRF: 0 Discharge Instructions Instructions: Chest Wall Pain (GEN) Additional Instructions: continue usual medications your pain clinic appointment will be rescheduled, they will call you with appointment. Stand Alone Forms: Nursing Discharge Form Referrals: [facility] [Provider Group] (The office will give you a call) China Myers NP [NURSE PRACTITIONER] - 01/28/20 11:00 am Activity:: Activity as Tolerated Equipment/Supplies:: No Equipment Needed Diet:: As Tolerated Discharge Orders Discharge Orders: Discharge Order (Routine); Ordered 01/23/20 Ordered By: Shanell Vail Discharge Data Discharge Date/Time-TO BE ENTERED AT DEPARTURE: 01/23/20 12:28 DS: Summary Status at Discharge Functional status at discharge: independent ambulation Overall status at discharge: patient is not back to baseline Mental Status: mental status grossly normal Speech and Movement: speech and movement normal Mood: congruent mood Affect: normal affect Exam Const General: cooperative and no acute distress (appears with chronic back pain, movements slow and steady) Nutritional Appearance: overweight Orientation: alert, awake and oriented x3 HENMT Head: normal to inspection, normocephalic and atraumatic Mouth: oral mucosae normal Resp Effort & Inspection: normal respiratory effort Auscultation: clear to auscultation bilaterally Cardio Rate: regular rate Rhythm: regular rhythm GI Inspection: normal to inspection Palpation: soft Auscultation: normal bowel sounds Extrem General: normal to inspection and full ROM Psych Mental Status: mental status grossly normal Speech and Movement: speech and movement normal Mood: congruent mood Affect: normal affect DS: Data Vitals/I&O Vitals and I&O: Vital Signs Temperature 36.7 C 01/23/20 07:29 Temperature Source Tympanic 01/23/20 07:29 Pulse 56 L 01/23/20 07:29 Pulse Rhythm Regular 01/23/20 09:48 Pulse 46 L 01/22/20 12:10 Respiratory Rate 18 01/23/20 07:29 Respiratory Effort 01/23/20 09:48 Respiratory Depth Normal 01/23/20 09:48 Respiratory Pattern Normal 01/23/20 09:48 Blood Pressure 130/79 01/23/20 07:29 Blood Pressure Mean 95 01/22/20 12:01 Blood Pressure Position Supine 01/22/20 10:00 Pulse Oximetry 95 01/23/20 07:29 Oxygen Delivery Method Room Air 01/23/20 07:29 Oxygen Flow Rate 0 01/23/20 07:29 Fraction of Inspired Oxygen (FIO2) 21 01/22/20 14:30 Pain Level 0 01/23/20 07:29 Comment 01/22/20 12:25 Intake & Output 01/22/20 01/22/20 01/23/20 11:59 23:59 11:59 Intake Total 10 / 800 790 / 800 370 / 370 Output Total 450 / 450 Balance 10 / 350 340 / 350 370 / 370 Weight 103 kg 103 kg Intake: IV 10 Oral 790 / 790 360 / 360 Output: Urine 450 / 450 Other: Urine Color Yellow Yellow Urine Appearance Cloudy Clear Sediment Urine Odor Normal Normal Stool Size Moderate Stool Characteristics Liquid Voiding Methods Toilet Toilet Data Completed and Pending Labs on day of discharge: Labs from last 24 hours 01/22/20 01/22/20 11:22 10:00 Sodium 141 Potassium 4.4 Chloride 107 Carbon Dioxide 25.8 Anion Gap 8.2 BUN 17 Creatinine 0.79 Estimated GFR/1.73 m2 >= 60.00 Glucose 115 H Calcium 9.2 Magnesium 2.0 Total Bilirubin 0.6 AST 54 H ALT 98 H Alkaline Phosphatase 66 Troponin I < 0.05 Total Protein 6.5 Albumin 3.5 TSH 2.06 COVID-19 PCR Negative Nasopharyn COVID-19 PCR Not Applicable Ref Test Perform Site [place] [facility] Medical History Achilles tendon disorder ASCVD (arteriosclerotic cardiovascular disease) Asthma Balance problem Carpal tunnel syndrome of right wrist Cerebrovascular accident (CVA) due to stenosis of posterior cerebral artery Depressive disorder Disorder of vitamin B12 Essential hypertension H/O ETOH abuse Headache Herpes zoster Hirsutism History of alcohol abuse (Inactive 05/13/15) not drinking at this time Hyperlipidemia Hyperparathyroidism Low back pain with sciatica Low vitamin D level Migraine Neck pain Non-alcoholic fatty liver disease NPDR (nonproliferative diabetic retinopathy) Obesity HUSSEIN (obstructive sleep apnea) Primary fibromyalgia syndrome Retinal detachment Shoulder pain Vasodepressor syncope Visual disturbance Surgical History Abdominal hysterectomy (~1985) endometriosis; 1 ovary remains Arthroscopy, Shoulder (~07/2008) RIGHT Cholecystectomy (~1982) EXCISION OF SHOULDER (~09/2006) EXCISION OF RIGHT DISTAL CALVICLE Fracture, Open Treatment (~04/2006) INT FIX FINGER Gastric Bypass (~2001) History of gastric bypass (Inactive) Endocrinology following vitamin D, Vitamin B12 & iron PINKY REPAIR LEFT Family History Mother , 87 Essential hypertension Heart disease Hyperlipidemia Asthma Lung cancer Father , 58 Heart disease Hyperlipidemia Alcohol abuse Brother Heart disease Substance abuse Maternal Grandfather Hyperlipidemia Paternal Grandfather No problems noted. Maternal Grandmother Kidney disease Paternal Grandmother No problems noted. Sister No problems noted. Social History Smoking/Tobacco Use Status: Former Tobacco Use Quit Date: 07/18/83 Alcohol Intake: former Drug use: Never Substance use type: does not use Caregiver/Support person: No Household members: spouse Housing: other Details: RV Pets and animals: Yes Pets and animals: dog(s) Sexually active: No Do you think of yourself as: straight/heterosexual Current gender identity: female What is your relationship status?: How often do you talk on the phone with friends or family?: three or more times per week How often do you get together with friends or relatives?: three or more times per week How often do you attend mandaen or mu-ism services?: decline to answer Do you belong to any clubs or organized social groups?: no Panel score (0-1 are the most socially isolated patients): 2 What type of physical activity do you participate in: walking Duration: 15-30 minutes/day Frequency: daily Jodi/Judaism: None Special jodi needs: No Seatbelt use: always Drive intox or ride w/intox local company tanker driver: No Do you feel safe at home: Yes Do you feel safe in your relationship?: Yes
--- NOTE | 2020-01-23 13:25 | PDOC.CMDIS ---
- If Service Date Differs Date of service: 01/23/20 Time of Service: 13:25 LACE Index Scoring Tool - Questions: Length of Stay (in days): 1 Acuity (Admit via E.D.?): Yes Comorbidities: Cerebrovascular Disease E.D. Visits: 1 - Answers: Total Score: 6 Risk of Readmission: Low Risk Care Management Discharge Reason for Hospitalization: Chest Pain Discharge Plan: Kemi will be discharged home later today. She will follow up with her PCP and discharge plan of care. Kemi will transport via private vehicle with her . Patient/Family Education Needs: Discharge plan, limitations, follow up plan and Ask Me Three
== END 2020-01-23 12:28 | disposition home or self-care (01) ==
LOC: ER 11:30 → MS 12:22
PROVIDERS: Admitting Provider Internal Medicine; Emergency Provider Student in an Organized Health Care Education/Training Program; PCP Family Medicine; Visit Provider Internal Medicine
DX: R07.89 Other chest pain (principal); I25.10 Atherosclerotic heart disease of native coronary artery without angina pectoris; G47.33 Obstructive sleep apnea (adult) (pediatric); R00.1 Bradycardia, unspecified; I10 Essential (primary) hypertension; E78.5 Hyperlipidemia, unspecified; J45.909 Unspecified asthma, uncomplicated; F32.9 Major depressive disorder, single episode, unspecified; B02.9 Zoster without complications; E21.3 Hyperparathyroidism, unspecified; M54.40 Lumbago with sciatica, unspecified side; Z79.899 Other long term (current) drug therapy; E55.9 Vitamin D deficiency, unspecified; Z86.73 Personal history of transient ischemic attack (TIA), and cerebral infarction without residual deficits; G43.909 Migraine, unspecified, not intractable, without status migrainosus; K76.0 Fatty (change of) liver, not elsewhere classified; E11.3299 Type 2 diabetes mellitus with mild nonproliferative diabetic retinopathy without macular edema, unspecified eye; E66.9 Obesity, unspecified; M79.7 Fibromyalgia
CPT/HCPCS: 36415; 78452; 80053; 93005; 99217; 99223; 99285; U0003; 71045; 83735; 84443; 84484; 85025; 85379; 85730; 93010; 93017; G0378; J1644; J2785

== ENCOUNTER 2020-03-11 13:45 | Outpatient (CLI) | payer OTHER, SELFPAY ==
[2020-03-11 14:31] VITALS: BP 158/91; PULSE 53; RESP 16; TEMP 36.5; O2SAT 100
[2020-03-11] MEDS: Lactated Ringers 1,000 ML 80 ML IV (15:17)
[2020-03-11 15:52] VITALS: BP 186/90; PULSE 58; RESP 15; O2SAT 100
--- NOTE | 2020-03-11 15:54 | PDOC.PAIN ---
Pain Clinic Procedure Note Procedure Note Procedure Note: patient presents today for right sided lumbar medial branch nerve radiofrequency ablation procedure. Patient was originally scheduled for bilateral lumbar MBB RFA on 01/22/2020, at which time, patient developed active chest pain that is described as sharp knife piercing and stabbing at my chest. Left sided lumbar MBB RFA was completed at time of patient's symptoms and she was transferred to emergency room for further evaluation. Work up was unremarkable and her chest pain self-resolved. She has been seen by her PCP in the interim and cleared for today's procedure. Upon arrival to our pre-procedure area, patient's vital signs were recorded as blood pressure 158/91 and on repeat pressure was 140/85. Of note, at her annual check up, her BP was recorded as 145/78. Patient denies any symptoms and was consented for procedure and transferred to procedure room. patient was placed in the prone position and blood pressure was monitored, patient's BP remains elevated at 170-180/90s-100s and highest recorded was 197/103. Manual blood pressure cuff was used to check her BP, which was 186/97. Given persistent elevation of BP, her history of CVA in the past, the procedure was aborted. Patient received no IV anxiolysis and no needle was placed. Of note, a single lumbar x-ray film was saved given a radio-opaque object was seen on the right upper lumbar region - this was verified with our radiologist who confirms that a similar appearing object was seen in prior lumbar films - most likely resembling a prior surgical clip. patient admits to having gastric bypass surgery in 1998. Before proceeding to reschedule Ms Chiu for right sided lumbar medial branch nerve radiofrequency ablation therapy, I would recommend for her to have a PCP appointment to address the blood pressure. Elevated systolic blood pressure maybe reflective of anxiety and/or white coat syndrome, however, patient's diastolic blood pressure was elevated above 90s. Sienna Carmona MD Pain Management
== END 2020-03-11 14:05 ==
PROVIDERS: PCP Family Medicine; Visit Provider Internal Medicine
DX: R69 Illness, unspecified (principal)
CPT/HCPCS: 72100

== ENCOUNTER 2020-05-20 12:51 | Outpatient (CLI) | payer OTHER, SELFPAY ==
--- NOTE | 2020-05-20 06:00 | DI.RAD_ITS ---
EXAM: XR PAIN CLINIC LUMBAR SP 2V CLINICAL HISTORY: Dx: Lumbar Spondylosis TECHNIQUE: 2D and realtime digital imaging was performed. CONTRAST MATERIAL: Refer to procedure report. COMPARISON: No exams were available for comparison FINDINGS: Fluoroscopy was provided for Dr. Carmona during the performance of a lumbar radiofrequency ablation. Ple ase refer to the procedure report for complete details. Fluoro time: 29.9 seconds IMPRESSION:
[2020-05-20 13:13] VITALS: BP 116/70; PULSE 59; RESP 16; TEMP 36.7; O2SAT 98
[2020-05-20] MEDS: fentaNYL 100 MCG/2 ML VIAL IVP ×2 (13:58→14:06)
[2020-05-20] MEDS: Midazolam 2 MG/2 ML VIAL IVP (13:59)
[2020-05-20] MEDS: Lactated Ringers 1,000 ML 80 ML IV (13:59)
[2020-05-20 14:20] VITALS: BP 135/76; PULSE 56; RESP 16; O2SAT 99
--- NOTE | 2020-05-20 14:23 | PDOC.PAIN ---
Pain Clinic Procedure Note Procedure Note Procedure Note: Right Lumbar Radiofrequency with Coolief Machine PROCEDURE NOTE Date of Service: May 20, 2020 Patient: ISAIAS ACUÑA Provider: Sienna Carmona MD Pre Operative Diagnosis: lumbar spondylosis Post Operative Diagnosis: same as above PROCEDURE: Radiofrequency Ablation of medial branches - right L3, L4, L5-DR ISAIAS Viramontes ARIANNE was brought into the fluoroscopy suite and positioned into the prone position on the fluoroscopy table and allowed to adjust to a position of comfort. A grounding pad was placed on the left side. The lumbar region was widely prepped with a chloraprep solution, allowed to air dry and draped in standard sterile surgical fashion. Local anesthesia was provided by 10mL of 1% lidocaine delivered with a 25g needle. A 17g 100mm radiofrequency introducer needle was placed to the planned anatomic targets guided with intermittent fluoroscopy with a perpendicular approach to terminally place at the junction of the superior articular process and the transverse process of the right L3, L4 and the base of the sacral ala on the right for the L5 medial branch nerve as well as the left S1. The stylets were removed and radiofrequency probes with a 4mm active tip were then inserted. Needle tip position of the probes was verified in the AP, oblique, and lateral views. At each site, the medial branch nerve was stimulated at 2 Hz to a maximum 1-2 volts determined to finalize safe needle and electrode placement. The patient was awake and responsive during this portion of the procedure. Each target was anesthetized with 1mL of 2% lidocaine for anesthesia for lesioning and then each target was lesioned at 80 degrees Celsius for 2 minutes and 30 seconds. Tissue impedences were noted to be between 250 and 500 Ohms. Electrodes and needles were then removed and bandages placed over the needle placement sites, the patient then returned to the supine position on a stretcher and transported to the recovery room without hemodynamic, neurologic, or allergic reactions. Fluoroscopic images were printed for hard copy recording and digitally archived. POST PROCEDURE EVALUATION: IMPRESSION: 1. Summary of procedure. patient received total of 1mg of IV versed and 50mcg of IV fentanyl 2. During testing, no myotomal stimulation was observed. I asked patient several times during the Coolief lesioning if she felt any abnormal sensation or muscle twitches down her right lower extremity, and patient denied, immediately after procedure, she reports soreness involving her right thigh - feels like someone beat me but this was reportedly transient and lasted for a couple of minutes. 3. Patient's vital signs were closely monitored throughout the procedure and remained stable. SHe has a history of active chest pain in the past during procedure and she needed to be transferred to ED last time, today, she denied any symptoms of chest pain/chest pressure until after RFA procedure was completed and she stated the following to our nursing staff I had chest pain during the procedure but I was not going to tell any of you guys because you would have stopped my procedure. Upon reporting of her symptoms, her vitals and tele were monitored and remained stable. Patient again denied active chest pain and then reported the chest pressure I felt during procedure lasted for 2 minutes Follow up plans and appointments were discussed with the ISAIAS . Post procedure instruction was given as documented in nursing documentation and having met discharge criteria, ISAIAS was discharged from the [facility]. COMMENTS: No complications. Patient has a history of withholding information from our staff including today not reporting her active chest pressure during procedure. I discussed with patient that it is prudent to report symptoms and I do not feel comfortable performing any additional interventional pain procedures if she continues to minimize her symptoms, which can be dangerous. of note, she had to withhold her plavix for this procedure. I personally performed this entire procedure. Sienna Carmona MD Attending Physician
[2020-05-20 14:25] VITALS: BP 138/77; PULSE 56; RESP 16; O2SAT 100
[2020-05-20 14:33] VITALS: BP 124/63; PULSE 54; RESP 16; O2SAT 99
[2020-05-20 14:35] VITALS: BP 129/77; PULSE 56; RESP 16; O2SAT 98
[2020-05-20] MEDS: Lidocaine 2% Pres-Free 5 ML VIAL IJ (14:41)
[2020-05-20] MEDS: Bupivacaine 0.5% Pres-Free 10 ML VIAL IJ (14:41)
[2020-05-20] MEDS: Lidocaine 1% Pres-Free 30 ML VIAL IJ (14:41)
[2020-05-20] MEDS: methylPREDNISolone ACETATE 40 MG/ML VIAL IJ (14:42)
== END 2020-05-20 13:11 ==
PROVIDERS: PCP Nurse Practitioner; Visit Provider Internal Medicine
DX: M47.817 Spondylosis without myelopathy or radiculopathy, lumbosacral region (principal)
CPT/HCPCS: 64635; 64636; 72100; J1030; J2250; J3010

== ENCOUNTER 2020-06-10 10:28 | Emergency (ER) | payer OTHER, SELFPAY ==
[2020-06-10 10:35] VITALS: BP 184/99; PULSE 58; RESP 16; TEMP 36.4; O2SAT 99
--- NOTE | 2020-06-10 10:50 | ED.GENADUL_ITS ---
Discharge Plan Disposition Patient Disposition: HOME Condition: Stable Discharge Details Clinical Impression: Right patella fracture Primary Care Provider: Luz Maria Powers ED Provider: Cynthia Blackburn Home Meds and New Rx's Prescriptions: New oxycodone 5 mg tablet 5 mg PO Q6H PRN (Reason: pain) Qty: 14 RF: 0 Continued cyanocobalamin (vitamin B-12) 1,000 mcg/mL solution 1,000 mcg IM MONTHLY Qty: 3 RF: 4 metformin 500 mg tablet extended release 24 hr 1,500 mg PO DAILY RF: 0 Poly-Iron 150 Forte 150-25-1 mg-mcg-mg capsule 1 cap PO DAILY Qty: 90 RF: 0 ascorbic acid (vitamin C) 1,000 MG tablet 1,000 mg PO DAILY RF: 0 thiamine HCl (vitamin B1) 100 MG tablet 1 tab PO DAILY RF: 0 multivitamin with minerals [One Daily Plus Minerals] 1 EACH tablet 1 tab PO DAILY RF: 0 vitamin E 400 UNIT capsule 2 cap PO DAILY RF: 0 B Complex Plus Vitamin C 1 EACH capsule 1 cap PO DAILY RF: 0 C-PAP 1 ea Inhalation DIRECTED RF: 0 MAALOX MAX QUICK DISSOLVE T 1 EACH TAB.CHEW 2 tab PO PRN RF: 0 albuterol sulfate [ProAir HFA] 8.5 GM HFA aerosol inhaler 2 puff Inhalation Q6H PRN Qty: 1 RF: 1 (DME) BD Blunt Plastic Cannula 1 EACH syringe 1 ea IM MONTHLY Qty: 3 RF: 4 clopidogrel 75 mg tablet 75 mg PO DAILY Qty: 90 RF: 3 rosuvastatin [Crestor] 20 mg tablet 20 mg PO QPM Qty: 90 RF: 3 tolterodine [Detrol LA] 2 mg capsule,extended release 24hr 2 mg PO DAILY Qty: 90 RF: 3 pregabalin [Lyrica] 100 mg capsule 100 - 300 mg PO DIRECTED Qty: 360 RF: 2 cholecalciferol (vitamin D3) [Vitamin D3] 50 mcg (2,000 unit) capsule 2,000 unit PO DAILY Qty: 90 RF: 4 ergocalciferol (vitamin D2) [Vitamin D2] 1,250 mcg (50,000 unit) capsule 100,000 unit PO QWEEK Qty: 16 RF: 4 clonazepam [Klonopin] 1 mg tablet See Rx Instructions .ROUTE HS Qty: 60 RF: 2 levothyroxine 25 mcg tablet 25 mcg PO DAILY RF: 0 Discharge Instructions Instructions: Patellar Fracture (ED) Additional Instructions: Rest, ice, and elevate the affected area as much as possible. Take Tylenol as needed and directed for pain. Take the oxycodone for pain not relieved with Tylenol. Call the orthopedist office today or tomorrow to schedule a follow-up appointment for reevaluation in 1 week. Return immediately to the emergency department if you develop any worsening or new concerning symptoms. Referrals: Adrián Kelly MD [ [facility] STAFF PHYSICIAN] - Discharge Data Discharge Date/Time-TO BE ENTERED AT DEPARTURE: 06/10/20 12:45 Discharge Physician: Cynthia Blackburn Medical Decision Making 69-year-old female with a history of fibromyalgia, balance disorder, hypertension, hyperlipidemia and obesity presents with right knee pain after fall onto right knee yesterday. Tenderness to palpation and pain with range of motion at right knee. Full ligament exam limited due to pain. NV intact. No deformity. Pt given a dose of oxycodone and patient referred for x-ray which noted a lateral patella fracture. Case discussed with Dr. Kelly who recommended knee immobilizer. Patient states she cannot use crutches due to her balance issue. She has a walker at home and plan is for weightbearing as tolerated but to rest as much as possible. Patient placed on Ortho follow-up list. She was given a prescription for oxycodone. Usual and customary return precautions given prior to discharge. Medical Records Medical records reviewed: Yes I reviewed the patient's medical records. Imaging Data Radiologic Study: Radiologist's impression: XR KNEE RT 4V AP,LAT,TIERRA,PAT CLINICAL HISTORY: s/p fall onto R knee, r/o fracture. TECHNIQUE: 2D digital imaging was performed. COMPARISON: No exams were available for comparison FINDINGS: BONES: There is a fracture at the lateral aspect of the patella extending in the sagittal plane which appears acute. No bony destructive lesion is seen. JOINTS: There are degenerative changes of the patellofemoral joint. There is s ome widening of the medial femoral tibial joint which could partially be secondary to a large joint effusion. The distal femur and proximal tibia and fibula appear intact. The femoral tibial joint spaces are well maintained. The bones appear osteopenic. SOFT TISSUE: Soft tissue swelling anterior to the patella. IMPRESSION: Nondisplaced fracture through the lateral patella. Large joint effusion or hemarthrosis. HPI General Mode of arrival: ambulatory . Date/Time Provider Initiated Documentation: 06/10/20 10:40 . Limitations to Documentation: no limitations . Information obtained by: patient . HPI Narrative: Patient is a 69-year-old female with a history of fibromyalgia, hypertension, hyperlipidemia, CVA, obstructive sleep apnea presents to the ED with right knee pain after fall yesterday. Patient states she was walking while carrying groceries when she slipped and fell hitting her knee directly on the hard frozen ground. Patient has had significant right knee pain since then and has been unable to bear weight due to the pain. Denies any other injuries. Related Data Home Medications Medication Instructions Recorded Confirmed B Complex Plus Vitamin C 1 cap PO DAILY 11/21/12 06/10/20 C-Pap 1 ea INHALATION DIRECTED 11/21/12 06/10/20 Maalox Max Quick Dissolve T 2 tab PO PRN tab.chew 11/21/12 06/10/20 ascorbic acid (vitamin C) 1,000 mg PO DAILY 11/21/12 06/10/20 multivitamin with minerals [One 1 tab PO DAILY 11/21/12 06/10/20 Daily Plus Minerals] thiamine HCl (vitamin B1) 1 tab PO DAILY 11/21/12 06/10/20 vitamin E 2 cap PO DAILY 11/21/12 06/10/20 albuterol sulfate [ProAir HFA] 2 puff INHALATION Q6H PRN #1 09/28/17 06/10/20 inhaler BD Blunt Plastic Cannula #3 syringe 01/13/18 06/10/20 clopidogrel 75 mg tablet 75 mg PO DAILY #90 tab 08/30/19 06/10/20 pregabalin 100 mg capsule 100 - 300 mg PO DIRECTED #360 08/30/19 06/10/20 cap rosuvastatin 20 mg tablet 20 mg PO QPM #90 tab 08/30/19 06/10/20 tolterodine 2 mg capsule,extended 2 mg PO DAILY #90 tab-cap 08/30/19 06/10/20 release 24 hr cyanocobalamin (vitamin B-12) 1,000 mcg IM MONTHLY #3 vial 10/26/19 06/10/20 1,000 mcg/mL injection solution cholecalciferol (vitamin D3) 50 2,000 unit PO DAILY #90 tab-cap 01/15/20 06/10/20 mcg (2,000 unit) capsule levothyroxine 25 mcg PO DAILY 01/22/20 06/10/20 iron polysacch cplx 150 mg 1 cap PO DAILY #90 cap 01/28/20 06/10/20 iron-vit B12 25 mcg-folic acid 1 mg capsule metformin 500 mg tablet,extended 1,500 mg PO DAILY tab 01/28/20 06/10/20 release 24 hr ergocalciferol (vitamin D2) 1,250 100,000 unit PO QWEEK #16 cap 03/20/20 06/10/20 mcg (50,000 unit) capsule clonazepam 1 mg tablet See Rx Instructions .ROUTE HS #60 05/12/20 06/10/20 tab-cap oxycodone 5 mg PO Q6H PRN #14 tab 06/10/20 Previous Rx's Medication Instructions Recorded albuterol sulfate [ProAir HFA] 2 puff INHALATION Q6H PRN #1 09/28/17 inhaler BD Blunt Plastic Cannula #3 syringe 01/13/18 clopidogrel 75 mg tablet 75 mg PO DAILY #90 tab 08/30/19 pregabalin 100 mg capsule 100 - 300 mg PO DIRECTED #360 08/30/19 cap rosuvastatin 20 mg tablet 20 mg PO QPM #90 tab 08/30/19 tolterodine 2 mg capsule,extended 2 mg PO DAILY #90 tab-cap 08/30/19 release 24 hr cyanocobalamin (vitamin B-12) 1,000 mcg IM MONTHLY #3 vial 10/26/19 1,000 mcg/mL injection solution cholecalciferol (vitamin D3) 50 2,000 unit PO DAILY #90 tab-cap 01/15/20 mcg (2,000 unit) capsule iron polysacch cplx 150 mg 1 cap PO DAILY #90 cap 01/28/20 iron-vit B12 25 mcg-folic acid 1 mg capsule ergocalciferol (vitamin D2) 1,250 100,000 unit PO QWEEK #16 cap 03/20/20 mcg (50,000 unit) capsule clonazepam 1 mg tablet See Rx Instructions .ROUTE HS #60 05/12/20 tab-cap oxycodone 5 mg PO Q6H PRN #14 tab 06/10/20 Allergies Allergy/AdvReac Type Severity Reaction Status Date / Time adhesive Allergy Intermediate Skin Rash Verified 06/10/20 10:40 doxycycline Allergy Unknown HIVES Verified 06/10/20 10:40 duloxetine [Duloxetine] AdvReac Severe AGITATION Verified 06/10/20 10:40 Extzzfx-Arl-Zrv Reductase AdvReac Severe Myalgias Verified 06/10/20 10:40 Inhibitor paroxetine AdvReac Intermediate IRRITABILIT Verified 06/10/20 10:40 Y gabapentin AdvReac Mild Interacts Verified 06/10/20 10:40 with other prescribed medications steristrips Allergy Intermediate glue Uncoded 06/10/20 10:40 causes blisters sx azul Allergy Intermediate blisters Uncoded 06/10/20 10:40 METAL Allergy Mild Skin Rash Uncoded 06/10/20 10:40 General Stated Complaint: Orthopedic VERO: 4 Review of Systems All systems reviewed & are unremarkable except as noted in HPI and below Constitutional Constitutional: Reports as per HPI, Denies chills and Denies fever(s) Eyes Eyes: Denies blurry vision ENT Ears, Nose, Mouth, and Throat: Denies dizziness, Denies sore throat and Denies throat swelling Cardiovascular Cardiovascular: Denies chest pain and Denies dyspnea Respiratory Respiratory: Denies cough and Denies dyspnea Gastrointestinal Gastrointestinal: Denies abdominal pain, Denies diarrhea and Denies vomiting Genitourinary Genitourinary: Denies hematuria and Denies dysuria Musculoskeletal Musculoskeletal: Denies back pain and Denies numbness Integumentary/Breasts Skin/Breast: Denies lesions and Denies rash Neurologic Neurologic: Denies dizziness, Denies localized weakness and Denies numbness Allergic/Immunologic Allergic/Immunologic: Denies throat swelling [facility] Medical History (Updated 06/10/20 @ 12:26 by Cynthia Blackburn DO) Achilles tendon disorder Achilles tendon disorder (05/17/14) left, repeat surgery 2013 ASCVD (arteriosclerotic cardiovascular disease) Asthma Balance problem Carpal tunnel syndrome of right wrist Cerebrovascular accident (CVA) due to stenosis of posterior cerebral artery Chest pain Depressive disorder Disorder of vitamin B12 Essential hypertension H/O ETOH abuse Headache Herpes zoster Hirsutism History of alcohol abuse (05/13/15) not drinking at this time Hyperlipidemia Hyperparathyroidism Low back pain with sciatica Low vitamin D level Migraine Neck pain Non-alcoholic fatty liver disease Non-alcoholic fatty liver disease (12/25/12) [place] improved after gastric bypass ([facility] bx) NPDR (nonproliferative diabetic retinopathy) Obesity HUSSEIN (obstructive sleep apnea) Primary fibromyalgia syndrome Retinal detachment Retinal detachment of both eyes with giant retinal tear (06/16/07) repaired Shoulder pain Vasodepressor syncope Visual disturbance Surgical History Abdominal hysterectomy (~1985) endometriosis; 1 ovary remains Arthroscopy, Shoulder (~07/2008) RIGHT Cholecystectomy (~1982) EXCISION OF SHOULDER (~09/2006) EXCISION OF RIGHT DISTAL CALVICLE Fracture, Open Treatment (~04/2006) INT FIX FINGER Gastric Bypass (~2001) History of gastric bypass Endocrinology following vitamin D, Vitamin B12 & iron History of shoulder surgery PINKY REPAIR LEFT Family History Mother , 87 Essential hypertension Heart disease Hyperlipidemia Asthma Lung cancer Father , 58 Heart disease Hyperlipidemia Alcohol abuse Brother Heart disease Substance abuse Maternal Grandfather Hyperlipidemia Paternal Grandfather No problems noted. Maternal Grandmother Kidney disease Paternal Grandmother No problems noted. Sister No problems noted. Social History Smoking/Tobacco Use Status: Former Tobacco Use Quit Date: 07/18/83 Smoking risk assessment performed?: Yes Alcohol Intake: former Drug use: Never Substance use type: does not use Caregiver/Support person: No Household members: spouse Housing: other Details: RV Pets and animals: Yes Pets and animals: dog(s) Sexually active: No Do you think of yourself as: straight/heterosexual Current gender identity: female What is your relationship status?: How often do you talk on the phone with friends or family?: three or more times per week How often do you get together with friends or relatives?: three or more times per week How often do you attend zoroastrian or islam services?: decline to answer Do you belong to any clubs or organized social groups?: no Panel score (0-1 are the most socially isolated patients): 2 What type of physical activity do you participate in: walking Duration: 15-30 minutes/day Frequency: daily Jodi/Sikhism: None Special jodi needs: No Seatbelt use: always Drive intox or ride w/intox bulk driver: No Do you feel safe at home: Yes Do you feel safe in your relationship?: Yes Exam Const General: cooperative, healthy appearing and no acute distress HENMT Head: normal to inspection Mouth: oral mucosae normal Eyes General: appearance normal, both eyes and all related structures Neck Neck: normal visual inspection Resp Effort & Inspection: normal respiratory effort and able to speak in complete sentences Cardio Rate: regular rate Skin General skin exam: no rashes or lesions noted Neuro General: patient alert, patient awake and patient oriented x3 Motor: muscle tone normal throughout Extrem Other: Tenderness to palpation of right anterior knee with minimal superficial abrasion and ecchymosis. There is mild to moderate edema of right anterior knee compared to left. Ligament exam and range of motion limited due to pain. No obvious deformity. No obvious ligament laxity. Right hip, ankle and foot nontender. Right DP/PT pulses intact. Psych Appearance: grossly normal Affect: normal affect Course Vital Signs Vital signs: Vital Signs Temperature 97.5 F L 06/10/20 10:35 Pulse 58 L 06/10/20 10:35 Respiratory Rate 16 06/10/20 10:35 Blood Pressure 184/99 H 06/10/20 10:35 Pulse Oximetry 99 06/10/20 10:35 Temperature 97.5 F L 06/10/20 10:35 Temperature Source Skin 06/10/20 10:35 Pulse 58 L 06/10/20 10:35 Respiratory Rate 16 06/10/20 10:35 Respiratory Effort Non-Labored 06/10/20 10:35 Blood Pressure 184/99 H 06/10/20 10:35 Blood Pressure Position Sitting 06/10/20 10:35 Pulse Oximetry 99 06/10/20 10:35 Oxygen Delivery Method Room Air 06/10/20 10:35 Oxygen Flow Rate 0 06/10/20 10:35 Pain Level 10 06/10/20 10:35 Procedures Orthopedic Splinting/Casting Injury #1: Side: right Lower Extremity Injury Location: knee Lower Extremity Immobilizer: knee immobilizer
[2020-06-10] MEDS: oxyCODONE 5 MG TAB PO (11:10)
--- NOTE | 2020-06-10 11:39 | DI.RAD_ITS ---
EXAM: XR KNEE RT 4V AP,LAT,TIERRA,PAT CLINICAL HISTORY: s/p fall onto R knee, r/o fracture. TECHNIQUE: 2D digital imaging was performed. COMPARISON: No exams were available for comparison FINDINGS: BONES: There is a fracture at the lateral aspect of the patella extending in the sagittal plane which appears acute. No bony destructive lesion is seen. JOINTS: There are degenerative changes of the patellofemoral joint. There is some widening of the me dial femoral tibial joint which could partially be secondary to a large joint effusion. The distal f emur and proximal tibia and fibula appear intact. The femoral tibial joint spaces are well maintaine d. The bones appear osteopenic. SOFT TISSUE: Soft tissue swelling anterior to the patella. IMPRESSION: Nondisplaced fracture through the lateral patella. Large joint effusion or hemarthrosis. DATA REPOSITORY: RADIATION DOSE DELIVERED:
== END 2020-06-10 12:45 | disposition home or self-care (01) ==
PROVIDERS: Emergency Provider Physician Assistant; PCP Nurse Practitioner
DX: S82.091A Other fracture of right patella, initial encounter for closed fracture (principal); W18.39XA Other fall on same level, initial encounter; I10 Essential (primary) hypertension
CPT/HCPCS: 27520; 73564

== ENCOUNTER 2020-06-24 12:00 | Outpatient (CLI) | payer OTHER, SELFPAY ==
--- NOTE | 2020-06-24 11:30 | DI.RAD_ITS ---
EXAM: XR KNEE RT 3V AP,LAT,TIERRA CLINICAL HISTORY: PATELLA PAIN TECHNIQUE: COMPARISON: CR XR KNEE RT 4V AP,LAT,TIERRA,PAT from 06/10/2020 FINDINGS: Three views were obtained. There is narrowing of the cartilaginous joint space of the patellofemoral joint laterally. The tibiofemoral joints appear fairly well maintained. There is mild marginal ost eophyte formation involving all 3 joints of the knee. Bones of the knee are demineralized. IMPRESSION: Degenerative change most marked involving lateral aspect of patellofemoral joint, mild lateral patell ar subluxation noted. RADIATION DOSE DELIVERED: Total DLP Total DLP
== END 2020-06-24 12:20 ==
PROVIDERS: PCP Nurse Practitioner; Referring Provider Nurse Practitioner; Visit Provider Student in an Organized Health Care Education/Training Program
DX: M17.11 Unilateral primary osteoarthritis, right knee (principal); S83.011A Lateral subluxation of right patella, initial encounter
CPT/HCPCS: 73562

== ENCOUNTER 2020-07-15 10:40 | Outpatient (CLI) | payer OTHER, SELFPAY ==
--- NOTE | 2020-07-15 10:15 | DI.RAD_ITS ---
EXAM: XR KNEE RT 3V AP,LAT,TIERRA INDICATION: follow up. COMPARISON: CR XR KNEE RT 4V AP,LAT,TIRERA,PAT from 06/10/2020 CR XR KNEE RT 4V AP,LAT,TIERRA,PAT from 06/10/2020 CR XR KNEE RT 3V AP,LAT,TIERRA from 06/24/2020 CR XR KNEE RT 3V AP,LAT,TIERRA from 06/24/2020 TECHNIQUE: 2D digital imaging was performed. FINDINGS: There has been no change in the alignment of the lateral patellar fracture. No joint effusion is vis ible. There are no new abnormalities. DATA REPOSITORY: RADIATION DOSE DELIVERED:
== END 2020-07-15 11:00 ==
PROVIDERS: PCP Nurse Practitioner; Referring Provider Nurse Practitioner; Visit Provider Physician Assistant Surgical
DX: S82.091A Other fracture of right patella, initial encounter for closed fracture (principal)
CPT/HCPCS: 73562

== ENCOUNTER 2020-07-23 02:14 | Emergency (ER) | payer OTHER, SELFPAY ==
--- NOTE | 2020-07-23 02:15 | DI.CT_ITS ---
EXAM: CT HEAD CERVICAL SPINE WO CLINICAL HISTORY: pain s/p fall. TECHNIQUE: Imaging Protocol: Axial computed tomography images with coronal and sagittal reformatted images were created and reviewed COMPARISON: CT CTA BRAIN AND NECK from 06/08/2017 FINDINGS: BRAIN: There are no skull fractures nor fluid in the visualized paranasal sinuses. There is no evidence of intracranial hemorrhage, mass effect, or shift of midline structures. There are no extra-axial fluid collections. The ventricles are not enlarged or shifted and there is no blo od within the ventricular system nor within the basal cisterns. There is periventricular hypodensity consistent chronic small vessel disease, this being relatively s ymmetrical. CERVICAL SPINE: There is no evidence of fracture nor listhesis. No significant prevertebral soft tissue swelling. N o facet malalignment evident. No significant osseous lesions evident. Multilevel disc space narrowing and degenerative facet joint changes noted. IMPRESSION: No acute intracranial findings on this noninfused CT scan of the brain. No evidence of cervical spine fracture, malalignment, nor acute compromise of the cervical spinal can al. RADIATION DOSE DELIVERED: 1,376.77mGy.cm Total DLP DATA REPOSITORY: All CT scans at this facility are submitted to the National Radiology Data Registry (NRDR) Dose Index Registry (DIR) with the [employer] (A[employer]). RADIATION OPTIMIZATION: All CT scans at this facility use at least one of these dose optimization te chniques: automated exposure control; mA and/or kV adjustment per patient size (includes targeted exa ms where dose is matched to clinical indication); or iterative reconstruction.
--- NOTE | 2020-07-23 02:15 | DI.RAD_ITS ---
EXAM: XR HUMERUS LT CLINICAL HISTORY: pain s/p fall. TECHNIQUE: 2D digital imaging was performed. COMPARISON: No exams were available for comparison FINDINGS: There is fracture of the humeral head and neck. There is a fracture of the greater tuberosity, nondi splaced. There is inferior subluxation of the humeral head relative to the glenoid fossa. This may signify joint effusion. There is no obvious fracture of the glenoid fossa on these images. There ar e no fractures lower down in the humerus. IMPRESSION: Upper humeral fractures as described above, nondisplaced. DATA REPOSITORY: RADIATION DOSE DELIVERED:
--- NOTE | 2020-07-23 02:15 | DI.RAD_ITS ---
EXAM: XR SHOULDER LT COMPLETE 2+V CLINICAL HISTORY: pain s/p fall. TECHNIQUE: 2D digital imaging was performed. COMPARISON: No exams were available for comparison FINDINGS: There fractures of the humeral head and neck. The head fracture involves the greater tuberosity and is not displaced. There is downward subluxation of the humeral head relative to the glenoid fossa wh ich is probably related to hemarthrosis. AC joint appears unremarkable. No obvious fracture of the glenoid fossa on these images. IMPRESSION: DATA REPOSITORY: RADIATION DOSE DELIVERED:
[2020-07-23 02:19] VITALS: BP 104/53; PULSE 63; RESP 18; TEMP 36.2; O2SAT 95
--- NOTE | 2020-07-23 02:23 | ED.GENADUL_ITS ---
Discharge Plan Disposition Patient Disposition: HOME Condition: Stable Discharge Details Clinical Impression: Closed left humeral fracture Primary Care Provider: Luz Maria Powers ED Provider: Mitchell Michael Home Meds and New Rx's Prescriptions: New oxycodone 5 mg tablet 5 mg PO Q6H PRNQty: 8 RF: 0 Continued cyanocobalamin (vitamin B-12) 1,000 mcg/mL solution 1,000 mcg IM MONTHLY Qty: 3 RF: 4 metformin 500 mg tablet extended release 24 hr 1,500 mg PO DAILY RF: 0 ascorbic acid (vitamin C) 1,000 MG tablet 1,000 mg PO DAILY RF: 0 thiamine HCl (vitamin B1) 100 MG tablet 1 tab PO DAILY RF: 0 multivitamin with minerals [One Daily Plus Minerals] 1 EACH tablet 1 tab PO DAILY RF: 0 vitamin E 400 UNIT capsule 2 cap PO DAILY RF: 0 B Complex Plus Vitamin C 1 EACH capsule 1 cap PO DAILY RF: 0 C-PAP 1 ea Inhalation DIRECTED RF: 0 MAALOX MAX QUICK DISSOLVE T 1 EACH TAB.CHEW 2 tab PO PRN RF: 0 albuterol sulfate [ProAir HFA] 8.5 GM HFA aerosol inhaler 2 puff Inhalation Q6H PRN Qty: 1 RF: 1 (DME) BD Blunt Plastic Cannula 1 EACH syringe 1 ea IM MONTHLY Qty: 3 RF: 4 pregabalin [Lyrica] 100 mg capsule 100 - 300 mg PO DIRECTED Qty: 360 RF: 2 cholecalciferol (vitamin D3) [Vitamin D3] 50 mcg (2,000 unit) capsule 2,000 unit PO DAILY Qty: 90 RF: 4 ergocalciferol (vitamin D2) [Vitamin D2] 1,250 mcg (50,000 unit) capsule 100,000 unit PO QWEEK Qty: 16 RF: 4 clonazepam [Klonopin] 1 mg tablet See Rx Instructions .ROUTE HS Qty: 60 RF: 2 clopidogrel 75 mg tablet 75 mg PO DAILY Qty: 90 RF: 3 rosuvastatin [Crestor] 20 mg tablet 20 mg PO QPM Qty: 90 RF: 3 tolterodine [Detrol LA] 2 mg capsule,extended release 24hr 2 mg PO DAILY Qty: 90 RF: 3 Poly-Iron 150 Forte 150-25-1 mg-mcg-mg capsule 1 cap PO DAILY Qty: 90 RF: 0 oxycodone 5 mg tablet 5 mg PO Q6H PRN (Reason: pain) Qty: 14 RF: 0 levothyroxine 25 mcg tablet 25 mcg PO DAILY RF: 0 Discharge Instructions Additional Instructions: You broke the bone in your arm take 1000mg tylenol every 6 hours for pain as needed call orthopedics for an appointment if you have severe worsening pain return to the emergency department Referrals: Ed Armenta MD [ [facility] STAFF PHYSICIAN] - Medical Decision Making 69 yo female states she was going to the bathroom when she tripped on her feet and landed on her left shoulder. Denies loc and denies any preceding symptoms from the fall such as chest pain, dyspnea, and no recent fevers. HAs pain primarily in the left shoulder but also has mild head pain and left lateral neck pain. Has pain with palpation to the lateral left shoulder and proximal humerus, no pain in the elbow forearm wrist or hand with intact sensation of the arm and normal pulses, can fully move the elbow, wrist and hand but limited rom of the shoulder due to pain. No chest tenderness or abdominal tenderness. Suspect humerus fracture will obtain xrays and given the fall and head/neck pain will obtain ct head and c spine patient placed in sling and felt improved, xray came back showing proximal humerus and oblique mid shaft humerus fracture. She was comfortable in the sling so this was maintained and given comfort did not want splint with collar/cuff at this time. She feels comfortable going home and feels she has support she needs. Will refer to orthopedics, return precautions given. No severe pain and remains neurovascularly intact so doubt compartment syndrome Differential Diagnosis Differential Diagnosis: contusion, fracture, dislocation Imaging Data Radiologic Study: Attestation: I personally reviewed and interpreted this imaging study as follows: Imaging: X-Ray Radiologist's impression: shoulder xray IMPRESSION: 1. Combined humeral head/shaft fracture with a fracture involving the greater tuberosity of the humeral head and with a hairline oblique fracture extending into the proximal humeral shaft. 2. Inferior subluxation of the humeral head in the glenoid fossa may reflect the presence of a hemarthrosis Radiologic Study #2: Attestation: I personally reviewed and interpreted this imaging study as follows: Imaging: X-Ray Radiologist's impression: humerus xray IMPRESSION: 1. Combined humeral head/shaft fracture with a fracture involving the greater tuberosity of the humeral head and with a hairline oblique fracture extending into the proximal humeral shaft. 2. Inferior subluxation of the humeral head in the glenoid fossa may reflect the presence of a hemarthrosis Radiologic Study #3: Attestation: I personally reviewed and interpreted this imaging study as follows: Imaging: CT Scan Radiologist's impression: no acute findings HPI General Date/Time Provider Initiated Documentation: 07/23/20 02:15 . Related Data Home Medications Medication Instructions Recorded Confirmed B Complex Plus Vitamin C 1 cap PO DAILY 11/21/12 07/23/20 C-Pap 1 ea INHALATION DIRECTED 11/21/12 07/23/20 Maalox Max Quick Dissolve T 2 tab PO PRN tab.chew 11/21/12 07/23/20 ascorbic acid (vitamin C) 1,000 mg PO DAILY 11/21/12 07/23/20 multivitamin with minerals [One 1 tab PO DAILY 11/21/12 07/23/20 Daily Plus Minerals] thiamine HCl (vitamin B1) 1 tab PO DAILY 11/21/12 07/23/20 vitamin E 2 cap PO DAILY 11/21/12 07/23/20 albuterol sulfate [ProAir HFA] 2 puff INHALATION Q6H PRN #1 09/28/17 07/23/20 inhaler BD Blunt Plastic Cannula #3 syringe 01/13/18 07/23/20 pregabalin 100 mg capsule 100 - 300 mg PO DIRECTED #360 08/30/19 07/23/20 cap cyanocobalamin (vitamin B-12) 1,000 mcg IM MONTHLY #3 vial 10/26/19 07/23/20 1,000 mcg/mL injection solution cholecalciferol (vitamin D3) 50 2,000 unit PO DAILY #90 tab-cap 01/15/20 mcg (2,000 unit) capsule levothyroxine 25 mcg PO DAILY 01/22/20 07/23/20 metformin 500 mg tablet,extended 1,500 mg PO DAILY tab 01/28/20 07/23/20 release 24 hr ergocalciferol (vitamin D2) 1,250 100,000 unit PO QWEEK #16 cap 03/20/20 07/23/20 mcg (50,000 unit) capsule clonazepam 1 mg tablet See Rx Instructions .ROUTE HS #60 05/12/20 07/23/20 tab-cap oxycodone 5 mg PO Q6H PRN #14 tab 06/10/20 07/23/20 clopidogrel 75 mg tablet 75 mg PO DAILY #90 tab 07/01/20 07/23/20 rosuvastatin 20 mg tablet 20 mg PO QPM #90 tab 07/01/20 07/23/20 tolterodine 2 mg capsule,extended 2 mg PO DAILY #90 tab-cap 07/01/20 07/23/20 release 24 hr iron polysacch cplx 150 mg 1 cap PO DAILY #90 cap 07/03/20 07/23/20 iron-vit B12 25 mcg-folic acid 1 mg capsule oxycodone 5 mg PO Q6H PRN #8 tab 07/23/20 Previous Rx's Medication Instructions Recorded albuterol sulfate [ProAir HFA] 2 puff INHALATION Q6H PRN #1 09/28/17 inhaler BD Blunt Plastic Cannula #3 syringe 01/13/18 pregabalin 100 mg capsule 100 - 300 mg PO DIRECTED #360 08/30/19 cap cyanocobalamin (vitamin B-12) 1,000 mcg IM MONTHLY #3 vial 10/26/19 1,000 mcg/mL injection solution cholecalciferol (vitamin D3) 50 2,000 unit PO DAILY #90 tab-cap 01/15/20 mcg (2,000 unit) capsule ergocalciferol (vitamin D2) 1,250 100,000 unit PO QWEEK #16 cap 03/20/20 mcg (50,000 unit) capsule clonazepam 1 mg tablet See Rx Instructions .ROUTE HS #60 05/12/20 tab-cap oxycodone 5 mg PO Q6H PRN #14 tab 06/10/20 clopidogrel 75 mg tablet 75 mg PO DAILY #90 tab 07/01/20 rosuvastatin 20 mg tablet 20 mg PO QPM #90 tab 07/01/20 tolterodine 2 mg capsule,extended 2 mg PO DAILY #90 tab-cap 07/01/20 release 24 hr iron polysacch cplx 150 mg 1 cap PO DAILY #90 cap 07/03/20 iron-vit B12 25 mcg-folic acid 1 mg capsule oxycodone 5 mg PO Q6H PRN #8 tab 07/23/20 Allergies Allergy/AdvReac Type Severity Reaction Status Date / Time adhesive Allergy Intermediate Skin Rash Verified 07/23/20 02:26 doxycycline Allergy Unknown HIVES Verified 07/23/20 02:26 duloxetine [Duloxetine] AdvReac Severe AGITATION Verified 07/23/20 02:26 Dzlchme-Apj-Vrg Reductase AdvReac Severe Myalgias Verified 07/23/20 02:26 Inhibitor paroxetine AdvReac Intermediate IRRITABILIT Verified 07/23/20 02:26 Y gabapentin AdvReac Mild Interacts Verified 07/23/20 02:26 with other prescribed medications steristrips Allergy Intermediate glue Uncoded 07/23/20 02:26 causes blisters sx azul Allergy Intermediate blisters Uncoded 07/23/20 02:26 METAL Allergy Mild Skin Rash Uncoded 07/23/20 02:26 General VERO: 4 PFSH Medical History Achilles tendon disorder Achilles tendon disorder (05/17/14) left, repeat surgery 2013 ASCVD (arteriosclerotic cardiovascular disease) Asthma Balance problem Carpal tunnel syndrome of right wrist Cerebrovascular accident (CVA) due to stenosis of posterior cerebral artery Chest pain Depressive disorder Disorder of vitamin B12 Essential hypertension H/O ETOH abuse Headache Herpes zoster Hirsutism History of alcohol abuse (05/13/15) not drinking at this time Hyperlipidemia Hyperparathyroidism Low back pain with sciatica Low vitamin D level Migraine Neck pain Non-alcoholic fatty liver disease Non-alcoholic fatty liver disease (12/25/12) [place] [place] NPDR (nonproliferative diabetic retinopathy) Obesity HUSSEIN (obstructive sleep apnea) Primary fibromyalgia syndrome Retinal detachment Retinal detachment of both eyes with giant retinal tear (06/16/07) repaired Shoulder pain Vasodepressor syncope Visual disturbance Surgical History Abdominal hysterectomy (~1985) endometriosis; 1 ovary remains Arthroscopy, Shoulder (~07/2008) RIGHT Cholecystectomy (~1982) EXCISION OF SHOULDER (~09/2006) EXCISION OF RIGHT DISTAL CALVICLE Fracture, Open Treatment (~04/2006) INT FIX FINGER Gastric Bypass (~2001) History of gastric bypass Endocrinology following vitamin D, Vitamin B12 & iron History of shoulder surgery PINKY REPAIR LEFT Family History Mother , 87 Essential hypertension Heart disease Hyperlipidemia Asthma Lung cancer Father , 58 Heart disease Hyperlipidemia Alcohol abuse Brother Heart disease Substance abuse Maternal Grandfather Hyperlipidemia Paternal Grandfather No problems noted. Maternal Grandmother Kidney disease Paternal Grandmother No problems noted. Sister No problems noted. Social History Smoking/Tobacco Use Status: Former Tobacco Use Quit Date: 07/18/83 Smoking risk assessment performed?: Yes Alcohol Intake: former Drug use: Never Substance use type: does not use Details: uses CBD oil Caregiver/Support person: No Household members: spouse Housing: other Details: RV Pets and animals: Yes Pets and animals: dog(s) Sexually active: No Do you think of yourself as: straight/heterosexual Current gender identity: female What is your relationship status?: How often do you talk on the phone with friends or family?: three or more times per week How often do you get together with friends or relatives?: three or more times per week How often do you attend congregational or mandaeism services?: decline to answer Do you belong to any clubs or organized social groups?: no Panel score (0-1 are the most socially isolated patients): 2 What type of physical activity do you participate in: walking Duration: 15-30 minutes/day Frequency: daily Jodi/Adventist: None Special jodi needs: No Seatbelt use: always Drive intox or ride w/intox tank truck driver: No Do you feel safe at home: Yes Do you feel safe in your relationship?: Yes
[2020-07-23] MEDS: Acetaminophen 500 MG TAB 1000 MG PO (03:15)
--- NOTE | 2020-07-23 03:30 | DI.VRAD_ITS ---
PROCEDURE INFORMATION: Exam: XR Left Humerus Exam date and time: 07/23/2020 2:57 AM Age: 69 years old Clinical indication: Injury or trauma; Blunt trauma (contusions or hematomas); Arm, upper; Left; Injury date: 07/23/20; Injury details: Fall, arm pain TECHNIQUE: Imaging protocol: XR Left humerus Views: 2 or more views. COMPARISON: No relevant prior studies available. FINDINGS: Bones/joints: Combined left humeral head and shaft fracture with a nondisplaced fracture involving the greater tuberosity of the humeral head and with a hairline nondisplaced proximal humeral shaft fracture. Inferior subluxation of the humeral head with respect to the glenoid fossa may reflect presence of a hemarthrosis. Soft tissues: Normal. IMPRESSION: 1. Combined left humeral head and shaft fracture with a nondisplaced fracture involving the greater tuberosity of the humeral head and with a hairline nondisplaced proximal humeral shaft fracture. 2. Inferior subluxation of the humeral head with respect to the glenoid fossa may reflect presence of a hemarthrosis. Dictated and Authenticated by: Hamzah Young MD. Ordering:DAMON Medrano MD
--- NOTE | 2020-07-23 03:31 | DI.VRAD_ITS ---
PROCEDURE INFORMATION: Exam: XR Left Shoulder Exam date and time: 07/23/2020 2:57 AM Age: 69 years old Clinical indication: Injury or trauma; Blunt trauma (contusions or hematomas); Shoulder; Left; Injury date: 07/23/20; Injury details: Fall, arm pain TECHNIQUE: Imaging protocol: XR Left shoulder. Views: 2 or more views. COMPARISON: No relevant prior studies available. FINDINGS: Bones/joints: Combined humeral head/shaft fracture with a fracture involving the greater tuberosity of the humeral head and with a hairline oblique fracture extending into the proximal humeral shaft. Inferior subluxation of the humeral head in the glenoid fossa may reflect the presence of a hemarthrosis. Soft tissues: Normal. IMPRESSION: 1. Combined humeral head/shaft fracture with a fracture involving the greater tuberosity of the humeral head and with a hairline oblique fracture extending into the proximal humeral shaft. 2. Inferior subluxation of the humeral head in the glenoid fossa may reflect the presence of a hemarthrosis. Dictated and Authenticated by: Hamzah Young MD. Ordering:DAMON Medrano MD
--- NOTE | 2020-07-23 03:31 | DI.VRAD_ITS ---
PROCEDURE INFORMATION: Exam: CT Head Without Contrast Exam date and time: 07/23/2020 2:24 AM Age: 69 years old Clinical indication: Injury or trauma; Blunt trauma (contusions or hematomas); Consciousness not specified; Injury date: 07/23/20; Injury details: Fall, hit head TECHNIQUE: Imaging protocol: Computed tomography of the head without contrast. COMPARISON: CT HEAD WITHOUT STROKE PROTOCOL 06/08/2017 6:10 PM FINDINGS: Brain: Mild volume loss No hemorrhage. Moderate white matter disease. No mass effect. Cerebral ventricles: No ventriculomegaly. Bones/joints: Unremarkable. No acute fracture. Paranasal sinuses: Visualized sinuses are unremarkable. No fluid levels. Mastoid air cells: Visualized mastoid air cells are well aerated. Soft tissues: Unremarkable. IMPRESSION: No acute intracranial hemorrhage PROCEDURE INFORMATION: Exam: CT Cervical Spine Without Contrast Exam date and time: 07/23/2020 2:24 AM Age: 69 years old Clinical indication: Injury or trauma; Blunt trauma (contusions or hematomas); Consciousness not specified; Injury date: 07/23/20; Injury details: Fall, hit head TECHNIQUE: Imaging protocol: Computed tomography images of the cervical spine without contrast. Radiation optimization: All CT scans at this facility use at least one of these dose optimization techniques: automated exposure control; mA and/or kV adjustment per patient size (includes targeted exams where dose is matched to clinical indication); or iterative reconstruction. COMPARISON: CT HEAD WITHOUT STROKE PROTOCOL 06/08/2017 6:10 PM FINDINGS: Bones/joints: No acute fracture. Loss of cervical lordosis is presumably on a degenerative basis. Discs/Spinal canal/Neural foramina: No significant spinal canal stenosis. Multilevel foraminal stenosis Lungs: Lung apices are normal. Soft tissues: Unremarkable. IMPRESSION: No acute cervical fracture observed Dictated and Authenticated by: Holden Sarabia MD. Ordering:DAMON Medrano MD
[2020-07-23 04:12] VITALS: BP 132/62; PULSE 55; RESP 16; O2SAT 97
== END 2020-07-23 04:36 | disposition home or self-care (01) ==
PROVIDERS: Emergency Provider Emergency Medicine; PCP Nurse Practitioner
DX: S42.332A Displaced oblique fracture of shaft of humerus, left arm, initial encounter for closed fracture (principal); S42.252A Displaced fracture of greater tuberosity of left humerus, initial encounter for closed fracture; M54.2 Cervicalgia; R51.9 Headache, unspecified; W01.198A Fall on same level from slipping, tripping and stumbling with subsequent striking against other object, initial encounter; I10 Essential (primary) hypertension
CPT/HCPCS: 23620; 24500; 99281; 70450; 72125; 73030; 73060

== ENCOUNTER 2020-08-06 10:09 | Outpatient (CLI) | payer OTHER, SELFPAY ==
--- NOTE | 2020-08-06 09:30 | DI.RAD_ITS ---
EXAM: XR SHOULDER LT COMPLETE 2+V CLINICAL HISTORY: f/u fracture. TECHNIQUE: 2D digital imaging was performed. COMPARISON: CR,XR XR SHOULDER LT COMPLETE 2+V from 07/23/2020 FINDINGS: BONES: Stable fracture of the proximal left humerus. No new fracture or dislocation. No bony destru ctive lesion is seen. JOINTS: No dislocation present. SOFT TISSUE: Normal. IMPRESSION: Stable proximal left humeral fracture. DATA REPOSITORY: RADIATION DOSE DELIVERED:
== END 2020-08-06 10:29 ==
PROVIDERS: PCP Nurse Practitioner; Visit Provider Physician Assistant
DX: S42.292A Other displaced fracture of upper end of left humerus, initial encounter for closed fracture (principal)
CPT/HCPCS: 73030

== ENCOUNTER 2020-09-02 11:54 | Outpatient (CLI) | payer OTHER, SELFPAY ==
--- NOTE | 2020-09-02 09:30 | DI.RAD_ITS ---
EXAM: XR SHOULDER LT COMPLETE 2+V CLINICAL HISTORY: F/u TECHNIQUE: COMPARISON: CR XR SHOULDER LT COMPLETE 2+V from 08/06/2020 FINDINGS: Two views were obtained. Previously described fracture of the proximal humerus is again noted, no gr oss interval change in alignment of the fracture fragments in comparison with previous examination of August 06. Humeral head remains normally aligned with the glenoid fossa. IMPRESSION: RADIATION DOSE DELIVERED: Total DLP
== END 2020-09-02 11:55 | disposition home or self-care (01) ==
LOC: DIORS 11:54
PROVIDERS: PCP Nurse Practitioner; Visit Provider Student in an Organized Health Care Education/Training Program
DX: S42.292A Other displaced fracture of upper end of left humerus, initial encounter for closed fracture (principal)
CPT/HCPCS: 73030

== ENCOUNTER 2020-10-15 10:01 | Outpatient (CLI) | payer OTHER, SELFPAY ==
--- NOTE | 2020-10-15 09:45 | DI.RAD_ITS ---
EXAM: XR SHOULDER LT COMPLETE 2+V CLINICAL HISTORY: F/U. TECHNIQUE: 2D digital imaging was performed. COMPARISON: CR XR SHOULDER LT COMPLETE 2+V from 09/02/2020 FINDINGS: Mild further healing at the previously described nondisplaced humeral head fracture site. No signifi cant displacement. No dislocation of the glenohumeral joint. Subacromial space appears maintained. Moderate degenerative changes in the AC joint noted. The subacromial space is not significantly dimi nished. IMPRESSION: Further healing. No displacement. DATA REPOSITORY: RADIATION DOSE DELIVERED:
== END 2020-10-15 10:02 | disposition home or self-care (01) ==
LOC: DIORS 10:01
PROVIDERS: PCP Nurse Practitioner; Referring Provider Nurse Practitioner; Visit Provider Student in an Organized Health Care Education/Training Program
DX: S42.332D Displaced oblique fracture of shaft of humerus, left arm, subsequent encounter for fracture with routine healing (principal)
CPT/HCPCS: 73030

== ENCOUNTER 2020-10-23 02:08 | Outpatient (CLI) | payer OTHER, SELFPAY ==
[2020-10-23 13:40] LABS: Hemoglobin A1C 6.2 % (<5.7)
[2020-10-23 15:19] LABS: Iron 41 ug/dL (50-170); Total Iron Binding Capacity 340 ug/dL (250-450)
[2020-10-23 15:37] LABS: Calculated LDL 55 mg/dL (<100); Cholesterol 131 mg/dL (<200); Folate > 20.0 ng/mL (8.6-20.0); HDL Cholesterol 45 mg/dL (40-60); TSH 2.31 uIU/mL (0.36-3.74); Triglyceride 158 mg/dL (<150); Vitamin B12 671 pg/mL (193-986)
[2020-10-24 09:35] LABS: Parathyroid Hormone,Intact 198 pg/mL (19-88)
[2020-10-28 14:28] LABS: 1,25-Dihydroxyvitamin D 35 pg/mL (18-78)
== END 2020-10-23 02:09 | disposition home or self-care (01) ==
LOC: LBO 02:08
PROVIDERS: PCP Nurse Practitioner; Visit Provider Nurse Practitioner
DX: E11.65 Type 2 diabetes mellitus with hyperglycemia (principal); I10 Essential (primary) hypertension; E78.2 Mixed hyperlipidemia; R79.89 Other specified abnormal findings of blood chemistry; E21.3 Hyperparathyroidism, unspecified; R53.83 Other fatigue; E55.9 Vitamin D deficiency, unspecified; E66.9 Obesity, unspecified
CPT/HCPCS: 36415; 80061; 82310; 82607; 82652; 82746; 83036; 83540; 83550; 83970; 84443

== ENCOUNTER 2020-11-03 01:57 | Outpatient (CLI) | payer OTHER, SELFPAY ==
--- NOTE | 2020-11-03 08:00 | DI.MRI_ITS ---
EXAM: MR UPPER JOINT LT WO CLINICAL HISTORY: SHOULDER PAIN,TRAUMATIC ROTATOR CUFF TEAR,S46.019A TECHNIQUE: Multiplanar multisequence MRI of the shoulder was performed. COMPARISON: CR XR SHOULDER LT COMPLETE 2+V from 09/02/2020 CR XR SHOULDER LT COMPLETE 2+V from 10/15/2020 FINDINGS: MARROW:There is a nondisplaced healing transverse fracture in the humeral head-neck which also involv es the greater tuberosity. There is also area of signal abnormality on the anterior superior aspect of the humeral head, this area measuring 1.8 cm wide by 1.2 cm AP by 1 cm craniocaudal and is contigu ous with the superior aspect of the nondisplaced greater tuberosity fracture. The fracture lines are still visible and T1 and there is some surrounding edema in the bone. There is a small glenohumeral joint effusion which extends into the medial subcoracoid recess and down the long head biceps tendon . Possibly representing a reverse Hill-Sachs deformity although there is no signal abnormality in th e posterior osseous glenoid. ROTATOR CUFF MECHANISM: AC JOINT/ACROMIUM: Mild degenerative changes. Mild impingement.. There is no evidence of os acromiale. Supraspinatus: Some tendinitis signal. Also area of signal abnormality on the articular surface side consistent with partial thickness tearing. It does not appear to be a full-thickness tear. There i s no fluid in the subacromial bursa. Infraspinatus: Intact. No evidence of tear nor muscle atrophy. Teres Minor: Intact. No evidence of tear nor muscle atrophy. Subscapularis/anterior cuff: Intact. No abnormal signal at the level of the multipennate insertional fibers. No significant tear nor atrophy. BICEPS TENDON: Normally position in the intertubercular groove. No evidence of tear. There is some fluid in the biceps tendon sheath which is a continuation of the glenohumeral joint eff usion. LABRUM: Superior labrum is intact. Posteriorly the labrum appears intact. Anterior labrum appears r elatively intact. No evidence of obvious bony Bankart lesion. GLENOHUMERAL JOINT: There is a moderate size joint effusion which extends down the long head biceps t endon sheath and into the medial recess subcoracoid region. No evidence of loose intra-articular bod y. There is significant thinning of the Paloma cartilage anterior chondral defect. There is a sma ll degenerative subarticular cysts in the osseous glenoid measuring 3 x 3 millimeters adjacent to thi s. There is small osteophyte on the inferior articular surface of the humeral head. the inferior gl enohumeral ligament is intact. QUADRILATERAL SPACE: No evidence of mass in the region of the axillary nerve and dorsal circumflex hu meral vessels. Visualized triceps muscle at this level appears unremarkable. IMPRESSION: 1. Healing humeral neck and head fracture which also involves the greater tuberosity and extending to the superior aspect of the humeral head. 2. Tendinitis and partial-thickness tearing of the supraspinatus. No full-thickness tear no retracti on musculotendinous junction. 3. Moderate size glenohumeral joint effusion which extends down the long head biceps tendon sheath an d into the medial recess. No obvious loose intra-articular body 4. Moderate degenerative changes of glenohumeral joint. DATA REPOSITORY:
== END 2020-11-03 02:17 ==
PROVIDERS: PCP Nurse Practitioner; Visit Provider Student in an Organized Health Care Education/Training Program
DX: M25.512 Pain in left shoulder (principal); S46.012A Strain of muscle(s) and tendon(s) of the rotator cuff of left shoulder, initial encounter; M25.412 Effusion, left shoulder; M19.012 Primary osteoarthritis, left shoulder; S42.332D Displaced oblique fracture of shaft of humerus, left arm, subsequent encounter for fracture with routine healing
CPT/HCPCS: 73221

== ENCOUNTER 2021-01-07 01:27 | Outpatient (CLI) | payer OTHER, SELFPAY ==
--- NOTE | 2021-01-07 08:40 | DI.MAMMO_ITS ---
Exam(s) MAMMO SCREENING EXAM: MAMMO SCREENING CLINICAL HISTORY: screening,Z12.39. TECHNIQUE: Bilateral full field digital CC and MLO mammographic images were obtained with 3D tomosyn thesis and utilizing computer aided detection (CAD). COMPARISON: Prior mammograms dating back to 2011, the most recent being March 2019 and December 2019 . FINDINGS: There are no new spiculated masses nor malignant appearing microcalcification groups. There is no significant architectural distortion nor skin thickening-retraction. IMPRESSION: No radiographic evidence of malignancy. BI-RADS Category 1 - Negative Breast Density - Category B - Scattered areas of fibroglandular density Breast density Category C or D implies that the patient has dense breast tissue. Dense breast tissue can make it harder to find cancer on a mammogram. Dense breast tissue is also associated with an incr eased risk of breast cancer. This information about the result of the mammogram report was provided to the patient to raise their awareness. Use this report when you speak with the patient about their risks for breast cancer, which includes their family history. At that time, you may recommend additional screening tests (Ultrasoun d or MRI) as these tests may add significant information. A negative radiographic report should not delay biopsy if a dominant or clinically suspicious mass is present. Up to ten percent of cancers are not identified on mammography. A negative report may reinforce clinical impression. Adenosis and dense breasts may obscure an underlying neoplasm. False positive reports average 6 to 10%. Patient will receive a letter notifying them of these results.
== END 2021-01-07 01:47 ==
PROVIDERS: PCP Nurse Practitioner; Visit Provider Nurse Practitioner
DX: Z12.31 Encounter for screening mammogram for malignant neoplasm of breast (principal); R92.8 Other abnormal and inconclusive findings on diagnostic imaging of breast
CPT/HCPCS: 77063; 77067

== ENCOUNTER 2021-01-21 09:36 | Outpatient (CLI) | payer OTHER, SELFPAY ==
--- NOTE | 2021-01-21 08:45 | DI.RAD_ITS ---
Exam(s) XR SHOULDER LT COMPLETE 2+V EXAM: XR SHOULDER LT COMPLETE 2+V CLINICAL HISTORY: F/u. TECHNIQUE: 2D digital imaging was performed. COMPARISON: CR XR SHOULDER LT COMPLETE 2+V from 10/15/2020 FINDINGS: BONES: There has been continued healing of the left humeral fracture. The fracture involving the gre ater tuberosity is still partially visualized. No new fracture or dislocation is seen. No bony dest ructive lesion is seen. JOINTS: No dislocation present. SOFT TISSUE: Normal. IMPRESSION: Healing proximal left humeral fractures. DATA REPOSITORY: RADIATION DOSE DELIVERED:
== END 2021-01-21 09:37 | disposition home or self-care (01) ==
LOC: DIORS 09:37
PROVIDERS: PCP Nurse Practitioner; Referring Provider Nurse Practitioner; Visit Provider Student in an Organized Health Care Education/Training Program
DX: S42.202D Unspecified fracture of upper end of left humerus, subsequent encounter for fracture with routine healing (principal); X58.XXXD Exposure to other specified factors, subsequent encounter
CPT/HCPCS: 73030

== ENCOUNTER 2021-02-03 13:30 | Outpatient (CLI) | payer OTHER, SELFPAY ==
--- NOTE | 2021-02-03 06:00 | DI.RAD_ITS ---
Exam(s) XR PAIN CLINIC SACRIOILIAC 2V EXAM: XR PAIN CLINIC SACRIOILIAC 2V CLINICAL HISTORY: Dx: Sacroiliac Joint Dysfunction. TECHNIQUE: Fluoroscopy was provided for the referring physician for guidance with performing injecti on procedure. COMPARISON: No exams were available for comparison FINDINGS: Please see procedure note for details. Fluoro time 29.6 seconds RADIATION DOSE DELIVERED: Ka,r=12.08 mGy
[2021-02-03 15:32] VITALS: BP 149/92; PULSE 53; RESP 18; TEMP 36.6; O2SAT 99
[2021-02-03 15:56] VITALS: BP 165/85; PULSE 54; RESP 14; O2SAT 99
--- NOTE | 2021-02-03 15:57 | PDOC.PAIN_ITS ---
Pain Clinic Procedure Note Procedure Note Procedure Note: INTRA-ARTICULAR SI JOINT INJECTION Kemi Tanner has been referred [facility] the [facility] for intra- articular SI joint injection. Pre-operative diagnosis: sacroiliac joint dysfunction Post-operative diagnosis: same as above Pre-procedure VAS score: 7-8 out of 10 Post-procedure VAS score: 0 out of 10 COMMENTS: patient reports average pain at least 6 out of 10, lower back with radiation to buttock, functionally limiting Patient was interviewed and the medical record reviewed. There were no medical, pharmacologic, radiographic or other structural contraindications to attempting fluoroscopically guided intra-articular SI joint injection. Risks and expected side effects as well as potential benefit of the procedure were reviewed and voiced concerns addressed. The printed consent form was signed and witnessed. Standard time-out procedure was performed. Patient was placed in the prone position on the fluoroscopy table and automated blood pressure cuff and pulse oximeter applied. The skin entry point for approaching bilateral SI joints was identified under the most advantageous fluoroscopic view and marked. Following thorough Chlorhexadine preparation of the skin and draping and 1% lidocaine infiltration of the skin entry point and subcutaneous tissues, a 25 gauge 3.5'' spinal needle was placed under fluoroscopic guidance into bilateral SI joints was identified under the most advantageous fluoroscopic view and marked. Following thorough Chlorhexadine preparation of the skin and draping and 1% lidocaine infiltration of the skin entry point and subcutaneous tissues, a 22 gauge spinal needle was placed under fluoroscopic guidance into bilateral SI joint. Intra-articular placement was confirmed by a clear arthrogram resulting from the injection of 0.25ml Omnipaque 240, 1ml 1% lidocaine, and 40mg Depomedrol were injected intra-articularily with an initial reproduction of a significant component of the usual pain. Vital signs were stable throughout the procedure and were as recorded in the docflowsheet by the nursing staff. Follow up plans and appointments were discussed with the patient. Post procedure instruction was given as documented in nursing documentation and having met discharge criteria, and was discharged from the [facility]. COMMENTS: patient tolerated procedure well without issue. Sienna Carmona MD Pain Management CC: Luz Maria Powers, PhD [employer]GER
[2021-02-03] MEDS: methylPREDNISolone ACETATE 80 MG/ML VIAL IJ (16:04)
[2021-02-03] MEDS: Omnipaque 240 MG/ML 50 ML BTL IJ (16:24)
== END 2021-02-03 13:31 | disposition home or self-care (01) ==
LOC: PC 13:31
PROVIDERS: PCP Nurse Practitioner; Visit Provider Internal Medicine
DX: M53.3 Sacrococcygeal disorders, not elsewhere classified (principal)
CPT/HCPCS: 27096; 72200; J1040; Q9967

== ENCOUNTER 2021-03-12 03:28 | Outpatient (CLI) | payer OTHER, SELFPAY ==
[2021-03-12 13:18] LABS: Calculated LDL 57 mg/dL (<100); Cholesterol 126 mg/dL (<200); HDL Cholesterol 46 mg/dL (40-60); Triglyceride 118 mg/dL (<150)
[2021-03-12 13:37] LABS: Hemoglobin A1C 6.4 % (<5.7)
== END 2021-03-12 03:29 | disposition home or self-care (01) ==
LOC: LOS 03:28
PROVIDERS: PCP Nurse Practitioner; Visit Provider Nurse Practitioner
DX: E11.65 Type 2 diabetes mellitus with hyperglycemia (principal); E78.5 Hyperlipidemia, unspecified
CPT/HCPCS: 36415; 80061; 83036

== ENCOUNTER 2021-03-31 10:14 | Outpatient (CLI) | payer OTHER, SELFPAY ==
--- NOTE | 2021-03-31 09:00 | DI.RAD_ITS ---
Exam(s) XR SHOULDER LT COMPLETE 2+V EXAM: XR SHOULDER LT COMPLETE 2+V CLINICAL HISTORY: L prox humerus fx. TECHNIQUE: 2D digital imaging was performed. COMPARISON: CR XR SHOULDER LT COMPLETE 2+V from 01/21/2021 FINDINGS: BONES: There has been continued healing at the fracture of the greater tuberosity. No bony destructi ve lesion is seen. JOINTS: No dislocation present. Degenerative changes at the AC joint and glenoid are again noted. SOFT TISSUE: Normal. IMPRESSION: Healing fracture of the greater tuberosity. DATA REPOSITORY: RADIATION DOSE DELIVERED:
== END 2021-03-31 10:15 | disposition home or self-care (01) ==
LOC: DIORS 10:14
PROVIDERS: PCP Nurse Practitioner; Referring Provider Nurse Practitioner; Visit Provider Physician Assistant
DX: S42.295D Other nondisplaced fracture of upper end of left humerus, subsequent encounter for fracture with routine healing (principal); X58.XXXD Exposure to other specified factors, subsequent encounter
CPT/HCPCS: 73030

== ENCOUNTER 2021-07-29 11:45 | Outpatient (CLI) | payer OTHER, SELFPAY ==
--- NOTE | 2021-07-29 11:15 | DI.RAD_ITS ---
Exam(s) XR SHOULDER LT COMPLETE 2+V EXAM: XR SHOULDER LT COMPLETE 2+V CLINICAL HISTORY: left humerus fx f/u. TECHNIQUE: 2D digital imaging was performed. COMPARISON: CR XR SHOULDER LT COMPLETE 2+V from 03/31/2021 FINDINGS: There is no evidence of fracture nor dislocation or abnormal soft tissue calcifications. Subacromial space is not diminished. There is some degenerative change in the glenohumeral joint with small osteophytes on the inferior ar ticular surface of the humeral head and inferior articular surface of the osseous glenoid. There is, however, no prominent joint space narrowing at this level. Degenerative changes in the AC joint not ed. No osseous lesions. Bone density is age-appropriate. IMPRESSION: Degenerative changes as described above. Similar to 03/31/2021. DATA REPOSITORY: RADIATION DOSE DELIVERED:
== END 2021-07-29 11:46 | disposition home or self-care (01) ==
LOC: DIORS 11:45
PROVIDERS: PCP Nurse Practitioner; Referring Provider Nurse Practitioner; Visit Provider Student in an Organized Health Care Education/Training Program
DX: S42.295D Other nondisplaced fracture of upper end of left humerus, subsequent encounter for fracture with routine healing (principal); M19.012 Primary osteoarthritis, left shoulder; X58.XXXD Exposure to other specified factors, subsequent encounter
CPT/HCPCS: 73030

== ENCOUNTER 2021-08-06 01:15 | Outpatient (CLI) | payer OTHER, SELFPAY ==
--- NOTE | 2021-08-06 07:30 | DI.CT_ITS ---
Exam(s) CT UPPER EXTREMITY LT WO EXAM: CT UPPER EXTREMITY LT WO CLINICAL HISTORY: Persistent pain, weakness,closed lt humeral fx,traumatic rotator cuff tear, TECHNIQUE: Imaging Protocol: Axial computed tomography images with coronal and sagittal reformatted images were created and reviewed. CONTRAST MATERIAL: None COMPARISON: MR MR UPPER JOINT LT WO from 11/03/2020 CR XR SHOULDER LT COMPLETE 2+V from 07/29/2021 FINDINGS: There has been healing of the previously present fracture at the humeral head-neck level. No fractur e line seen on the present CT study (as were evident on the T1 weighted images of the MRI scan perfor med 11/03/2020). No loose intra-articular bodies. 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 There is an osteop hyte on the inferior articular surface of the humeral head. Also mild osteophyte on the anterior 0 i nferior aspect of the osseous glenoid. There are no degenerative subarticular cysts. There is mild- moderate narrowing of the glenohumeral joint space. Coracoid process is intact. AC joint exhibits mild degenerative changes. No prominent downgoing osteophytes. No osseous lesions at this level. There are no significant incidental lung findings in the left hemithorax on the field of view of this study. IMPRESSION: Moderate degenerative changes glenohumeral joint. Previously present fracture in the left humeral he ad-neck has healed. There are no fracture lines seen on today's CT scan. Mild degenerative changes the ipsilateral AC joint. RADIATION DOSE DELIVERED: 940.86mGy.cm Total DLP DATA REPOSITORY: All CT scans at this facility are submitted to the National Radiology Data Registry (NRDR) Dose Index Registry (DIR) with the [employer] ([employer]). RADIATION OPTIMIZATION: All CT scans at this facility use at least one of these dose optimization te chniques: automated exposure control; mA and/or kV adjustment per patient size (includes targeted exa ms where dose is matched to clinical indication); or iterative reconstruction.
--- NOTE | 2021-08-06 07:30 | DI.MRI_ITS ---
Exam(s) MR UPPER JOINT LT WO EXAM: MR UPPER JOINT LT WO CLINICAL HISTORY: Persistent pain, weakness,closed lt humeral fx,traumatic rotator cuff tear TECHNIQUE: Multiplanar multisequence MRI of the shoulder was performed. COMPARISON: MR MR UPPER JOINT LT WO from 11/03/2020 CR XR SHOULDER LT COMPLETE 2+V from 07/29/[address] UPPER EXTREMITY LT WO from 08/06/2021 FINDINGS: MARROW:When compared to the prior MRI scan of October 2020 there has been significant further healing o f the nondisplaced fracture in the humeral neck, include less visible fracture lines on T1 images and less bone edema. However, the area of subarticular signal abnormality in the most superior aspect o f the humeral head located anteriorly above the lesser tuberosity is still present and represents a f orm of prominent focal bone contusion/osteochondral defect. It has slightly decreased in size when c ompared to the prior study. This is located just medial to the greater tuberosity and subjacent to the mid-anterior insertional f ibers of the supraspinatus rotator cuff tendon. ROTATOR CUFF MECHANISM: AC JOINT/ACROMIUM: Mild degenerative changes. Mild impingement. No evidence of os acromiale. There is no evidence of os acromiale. Supraspinatus: There is still some signal abnormality in the supraspinatus tendon most prominent just above the above described finding in the superior aspect of the humeral head. However, there has be en some improvement in the appearance of the supraspinatus tendon when compared to the prior study. There is presently no no evidence of bone edema at its attachment site on the greater tuberosity. Infraspinatus: Intact. No evidence of tear nor muscle atrophy. Teres Minor: Intact. No evidence of tear nor muscle atrophy. Subscapularis/anterior cuff: Intact. No abnormal signal at the level of the multipennate insertional fibers. No significant tear nor atrophy. BICEPS TENDON: Biceps tendon again exhibits normal position within the intertubercular groove and no evidence of tear. Minimal fluid in the tendon sheath, less than on the previous study. LABRUM: There is no significant signal abnormality in the superior labrum posterior to the biceps ins ertion to suggest a SLAP-type tear. Mild irregularity but no obvious tear evident in the posterior l abrum. No obvious tear of the anterior labrum. Tiny focus of signal abnormality seen in the inferio r labrum at the triceps attachment region, unchanged. No large tear at this level. The inferior gle nohumeral ligament is intact. GLENOHUMERAL JOINT: Size of the joint effusion has decreased. There is presently no significant join t effusion and no evidence of loose intra-articular body. There is a small degenerative subarticular cyst in the mid aspect of the osseous glenoid, measuring 3 x 3 millimeters, unchanged. No new additi onal development of degenerative subarticular cysts on either side of the joint. There is again note d some loss of hyaline cartilage as well as small-moderate size osteophyte on the inferior articular surface of the humeral head. No evidence of capsular tear. The inferior glenohumeral ligament is in tact. QUADRILATERAL SPACE: No evidence of mass in the region of the axillary nerve and dorsal circumflex hu meral vessels. IMPRESSION: 1. Compared to the prior MRI scan of 11/03/2020 there has been further healing of the nondisplaced hu meral head-neck fracture and decrease in size of the glenohumeral joint effusion. There are no loose intra-articular bodies. There is still exists a geographic area of signal abnormality in the superi or aspect of the humeral head just medial to the greater tuberosity as described above, although this does appears slightly smaller than on the prior study. There is also no longer osseous edema within the greater tuberosity. 2. Some improvement in the appearance of the supraspinatus tendon. Less evidence of partial-thicknes s tearing on the present study. Mild persistent tendinosis tendinitis signal, this just medial to th e greater tuberosity. There is no tearing at the musculotendinous junction no retraction. There is no muscle atrophy of the supraspinatus and there are no tears of the other 3 muscles of the rotator c uff mechanism nor evidence of muscle atrophy. 3. Stable satisfactory appearance of the biceps tendon. Stable appearance of the labrum without prom inent tears and no evidence of paralabral cyst. 4. Moderate degenerative changes in the glenohumeral joint as described above, but without obvious p rogression when compared to the prior MRI study. DATA REPOSITORY:
== END 2021-08-06 01:35 ==
PROVIDERS: PCP Nurse Practitioner; Visit Provider Student in an Organized Health Care Education/Training Program
DX: S42.295D Other nondisplaced fracture of upper end of left humerus, subsequent encounter for fracture with routine healing (principal); S46.012D Strain of muscle(s) and tendon(s) of the rotator cuff of left shoulder, subsequent encounter; M19.012 Primary osteoarthritis, left shoulder; M25.512 Pain in left shoulder
CPT/HCPCS: 73200; 73221

== ENCOUNTER 2022-01-11 03:50 | Outpatient (CLI) | payer OTHER, SELFPAY ==
[2022-01-11 09:19] LABS: Hemoglobin A1C 6.5 % (<5.7)
[2022-01-11 09:27] LABS: Anion Gap 6.6 mmol/L (3-11); BUN 17 mg/dL (7-18); CO2 28.4 mmol/L (21.0-32.0); CREATININE 0.9 mg/dL (0.55-1.02); Calcium 9.8 mg/dL (8.5-10.1); Chloride 106 mmol/L (98-107); Glucose 120 mg/dL (74-106); Potassium 4.5 mmol/L (3.5-5.1); Sodium 141 mmol/L (136-145)
[2022-01-11 10:11] LABS: Calculated LDL 79 mg/dL (<100); Cholesterol 161 mg/dL (<200); HDL Cholesterol 50 mg/dL (40-60); Triglyceride 162 mg/dL (<150); Vitamin B12 598 pg/mL (193-986)
[2022-01-11 10:13] LABS: Vitamin D 25 Total 54.5 ng/mL (30-100)
== END 2022-01-11 03:51 | disposition home or self-care (01) ==
LOC: LBO 03:50
PROVIDERS: PCP Nurse Practitioner; Visit Provider Nurse Practitioner
DX: I10 Essential (primary) hypertension (principal); E78.5 Hyperlipidemia, unspecified; E11.65 Type 2 diabetes mellitus with hyperglycemia; E53.8 Deficiency of other specified B group vitamins; E21.3 Hyperparathyroidism, unspecified; E34.8 Other specified endocrine disorders
CPT/HCPCS: 36415; 80048; 80061; 82306; 82607; 83036

== ENCOUNTER → 2022-02-12 00:20 | Outpatient (CLI) | payer OTHER, SELFPAY | PROVIDERS: PCP Nurse Practitioner; Visit Provider Nurse Practitioner ==

== ENCOUNTER 2022-03-19 02:19 | Outpatient (CLI) | payer OTHER, SELFPAY ==
[2022-03-19 11:39] LABS: TSH (W/Ref FT4) 1.27 uIU/mL (0.36-3.74)
== END 2022-03-19 02:20 | disposition home or self-care (01) ==
LOC: LBO 02:19
PROVIDERS: PCP Nurse Practitioner; Visit Provider Family Medicine
DX: E03.9 Hypothyroidism, unspecified (principal)
CPT/HCPCS: 36415; 84443

== ENCOUNTER 2022-03-20 19:49 | Emergency (ER) | payer OTHER, SELFPAY ==
--- NOTE | 2022-03-20 20:15 | DI.RAD_ITS ---
Exam(s) XR WRIST RT COMPLETE EXAM: XR WRIST RT COMPLETE CLINICAL HISTORY: foosh, pain at distal radius. TECHNIQUE: 2D digital imaging was performed. Three views. COMPARISON: No exams were available for comparison FINDINGS: BONES: No acute fracture is present. No bony destructive lesion is seen. The bones appear osteopeni c. JOINTS: The carpal bones are normally aligned. SOFT TISSUE: Normal. IMPRESSION: No acute abnormality. DATA REPOSITORY: RADIATION DOSE DELIVERED:
--- NOTE | 2022-03-20 20:15 | DI.RAD_ITS ---
Exam(s) XR ELBOW RT COMPLETE EXAM: XR ELBOW RT COMPLETE CLINICAL HISTORY: fall, pain at medial epicondyle. TECHNIQUE: 2D digital imaging was performed. Three views. COMPARISON: No exams were available for comparison FINDINGS: BONES: No acute fracture is present. No bony destructive lesion is seen. JOINTS: The elbow is normally aligned. No joint effusion is seen. SOFT TISSUE: Normal. IMPRESSION: Unremarkable radiographs of the right elbow. DATA REPOSITORY: RADIATION DOSE DELIVERED:
[2022-03-20 20:19] VITALS: BP 189/95; PULSE 62; RESP 18; TEMP 36.3; O2SAT 97
[2022-03-20] MEDS: Acetaminophen 500 MG TAB 1000 MG PO (20:29)
--- NOTE | 2022-03-20 20:47 | DI.VRAD_ITS ---
PROCEDURE INFORMATION: Exam: XR Right Elbow Exam date and time: 03/20/2022 8:41 PM Age: 71 years old Clinical indication: Other: Fall, pain at medial epicondyle TECHNIQUE: Imaging protocol: Radiologic exam of the Right elbow. Views: 3 or more views. COMPARISON: CR XR WRIST RT COMPLETE 03/20/2022 8:38 PM FINDINGS: Bones/joints: Normal. Soft tissues: Normal. IMPRESSION: No evidence for fracture. Dictated and Authenticated by: Tory Honeycutt MD. Ordering:ANDRIY Edwards MD
--- NOTE | 2022-03-20 20:49 | DI.VRAD_ITS ---
PROCEDURE INFORMATION: Exam: XR Right Wrist Exam date and time: 03/20/2022 8:38 PM Age: 71 years old Clinical indication: Other: Fall on outstretched hand, pain at distal raduis TECHNIQUE: Imaging protocol: Radiologic exam of the Right wrist. Views: 3 or more views. COMPARISON: No relevant prior studies available. FINDINGS: Bones/joints: Normal. Soft tissues: Normal. IMPRESSION: No evidence for fracture. Dictated and Authenticated by: Tory Honeycutt MD. Ordering:ANDRIY Edwards MD
--- NOTE | 2022-03-20 20:58 | W.ED.GENAD ---
Discharge Plan Disposition Patient Disposition: HOME Condition: Good Discharge Details Clinical Impression: Contusion of right wrist, Contusion of elbow, right Primary Care Provider: Luz Maria Powers ED Provider: Jerry Walsh Home Meds and New Rx's Prescriptions: New diclofenac sodium [Arthritis Pain (diclofenac)] 1 % gel 2 g topical QID Qty: 100 0RF Rx Instructions: apply to single elbow, wrist or hand; for hand includes palm/fingers/back of hand No Action cyanocobalamin (vitamin B-12) 1,000 mcg/mL solution 1,000 mcg IM MONTHLY Qty: 3 4RF Rx Instructions: 1 ML IM MONTHLY Flintstones Complete Tablet,Chewable 1 tab PO DAILY clonazepam [Klonopin] 1 mg tablet 1 mg .ROUTE HS Qty: 60 2RF Rx Instructions: 1.5 mg bedtime; albuterol sulfate [ProAir HFA] 90 mcg/actuation HFA aerosol inhaler 2 puff Inhalation Q6H PRN Qty: 1 1RF thiamine HCl (vitamin B1) 100 MG tablet 1 tab PO DAILY Label Comments: 05/08/13 1 qd. si Rx Instructions: 200 MG DAILY vitamin E 400 UNIT capsule 2 cap PO DAILY Label Comments: unknown strength Rx Instructions: 800 UNIT DAILY B Complex Plus Vitamin C 1 EACH capsule 1 cap PO DAILY C-PAP 1 ea Inhalation DIRECTED Rx Instructions: [facility] MAALOX MAX QUICK DISSOLVE T 1 EACH TAB.CHEW 2 tab PO PRN (DME) BD Blunt Plastic Cannula 1 EACH syringe 1 ea IM MONTHLY Qty: 3 4RF Rx Instructions: 3ML 25G X 1; FOR USE WITH B12 ascorbic acid (vitamin C) 1,000 mg tablet 1,000 mg PO BID folic acid 1 mg tablet 1 mg PO DAILY Qty: 90 4RF cholecalciferol (vitamin D3) [Vitamin D3] 50 mcg (2,000 unit) capsule 2,000 unit PO DAILY Qty: 90 4RF Rx Instructions: one pill daily ergocalciferol (vitamin D2) [Vitamin D2] 1,250 mcg (50,000 unit) capsule 50,000 unit PO .Twice a week Qty: 26 4RF clopidogrel 75 mg tablet 75 mg PO DAILY Qty: 90 3RF rosuvastatin [Crestor] 20 mg tablet 20 mg PO QPM Qty: 90 3RF tolterodine [Detrol LA] 2 mg capsule,extended release 24hr 2 mg PO DAILY Qty: 90 3RF Poly-Iron 150 Forte 150-25-1 mg-mcg-mg capsule 1 cap PO DAILY Qty: 90 4RF metformin 500 mg tablet extended release 24 hr 1,500 mg PO DAILY Qty: 280 3RF pregabalin [Lyrica] 100 mg capsule 100 - 300 mg PO DIRECTED Qty: 360 2RF Rx Instructions: 1 CAP QAM; 3 CAP QHS (per Dr Batista, [facility]) levothyroxine 25 mcg tablet 25 mcg PO DAILY Qty: 90 3RF Discharge Instructions Instructions: Contusion in Adults (ED) Additional Instructions: At this time your x-rays are negative for any evidence of fracture. You likely sprained the 2 areas. Please use the wrist splint to help with pain in your wrist. Ice your wrist and your elbow as needed for pain. I have sent a prescription for diclofenac gel, which you can rub into the sore areas 3-4 times per day. Since it is a topical solution that will not interact significantly with your other medications. If you notice any worsening of your symptoms, or any new symptoms such as vomiting, diarrhea, fever, chills, shortness of breath, chest pain, numbness, weakness, or fainting , please return immediately to the emergency department for reevaluation. Please follow up with your primary care provider as soon as possible for reassessment and reevaluation. As always, it was a pleasure participating in your medical care today. Referrals: Luz Maria Powers, PUBLIC RELATIONS SPECIALIST [Primary Care Provider] - Medical Decision Making 71-year-old female with past medical history of diabetes, fibromyalgia, hypertension, atherosclerotic cardiovascular disease, presents today for evaluation of right wrist and elbow pain. She is right-hand dominant. Patient states that early this morning she was walking and she fell on her buttocks, and her right elbow and wrist hit behind her. She has not taken anything for the pain. They have been achy ever since the fall. She denies any numbness or tingling. She has been able to move her arm well. No other complaints at this time. Pain is made worse with movement. Improved by nothing Mild tenderness over the medial epicondyle of the right elbow, and mild tenderness of the distal radius. X-rays were performed and are negative for acute process. No signs of fracture. [place] wrist splint applied. Patient has excellent mobility still. Will recommend Voltaren gel for home. Discussed red flags which return. Diagnosis contusion. I have extensively reviewed the treatment plan and discharge instructions with the patient. I have addressed all patient concerns at this time. The patient was made aware of what symptoms to monitor for that would warrant a return to the emergency department. Discussed the plan with the patient, they demonstrate verbal understanding and agreement with our assessment and plan at this time. The documentation in this chart was dictated using [employer] dictation software. Please excuse any dictation errors. COMPARISON: CR XR WRIST RT COMPLETE 03/20/2022 8:38 PM FINDINGS: Bones/joints: Normal. Soft tissues: Normal. IMPRESSION: No evidence for fracture. Thank you for allowing us to participate in the care of your patient. Dictated and Authenticated by: Tory Honeycutt MD 03/20/2022 8:47 PM Eastern Time ([place] & [place]) FINDINGS: Bones/joints: Normal. Soft tissues: Normal. IMPRESSION: No evidence for fracture. Thank you for allowing us to participate in the care of your patient. Dictated and Authenticated by: Tory Honeycutt MD 03/20/2022 8:49 PM Eastern Time ([place] & [place]) HPI General Date/Time Provider Initiated Documentation: 03/20/22 19:53. HPI Narrative: 71-year-old female with past medical history of diabetes, fibromyalgia, hypertension, atherosclerotic cardiovascular disease, presents today for evaluation of right wrist and elbow pain. She is right-hand dominant. Patient states that early this morning she was walking and she fell on her buttocks, and her right elbow and wrist hit behind her. She has not taken anything for the pain. They have been achy ever since the fall. She denies any numbness or tingling. She has been able to move her arm well. No other complaints at this time. Pain is made worse with movement. Improved by nothing Related Data Home Medications Medication Instructions Recorded Confirmed C-Pap 1 ea inhalation DIRECTED 11/21/12 03/16/22 Maalox Max Quick Dissolve T 2 tab PO PRN 11/21/12 03/16/22 thiamine HCl (vitamin B1) 100 mg 1 tab PO DAILY 11/21/12 03/16/22 tablet vitamin B comp and C no.3 15 mg-10 1 cap PO DAILY 11/21/12 03/16/22 mg-50 mg-5 mg-300 mg capsule (B Complex Plus Vitamin C) vitamin E 268 mg (400 unit) capsule 2 cap PO DAILY 11/21/12 03/16/22 syringe with cannula,disposabl 17 #3 SYRGS 01/13/18 03/16/22 x 3 mL (BD Blunt Plastic Cannula) cyanocobalamin (vitamin B-12) 1,000 mcg IM MONTHLY #3 vials 10/26/19 03/16/22 1,000 mcg/mL injection solution ascorbic acid (vitamin C) 1,000 mg 1,000 mg PO BID 10/21/20 03/16/22 tablet folic acid 1 mg tablet 1 mg PO DAILY #90 tabs 11/06/20 03/16/22 albuterol sulfate 90 mcg/actuation 2 puff inhalation Q6H PRN ##1 12/02/20 03/16/22 aerosol inhaler (ProAir HFA) clonazepam 1 mg tablet (Klonopin) 1 mg .Route HS #60 tab-caps 12/02/20 03/16/22 pediatric multivitamin no.76 1 tab PO DAILY 01/21/21 03/16/22 (Flintstones Complete chewable tablet) cholecalciferol (vitamin D3) 50 2,000 unit PO DAILY #90 tab-caps 01/29/21 03/16/22 mcg (2,000 unit) capsule (Vitamin D3) ergocalciferol (vitamin D2) 1,250 50,000 unit PO .Twice a week #26 03/05/21 03/16/22 mcg (50,000 unit) capsule (Vitamin caps D2) clopidogrel 75 mg tablet 75 mg PO DAILY #90 tabs 09/22/21 03/16/22 rosuvastatin 20 mg tablet (Crestor) 20 mg PO QPM #90 tabs 09/22/21 03/16/22 tolterodine 2 mg capsule,extended 2 mg PO DAILY #90 tab-caps 09/22/21 03/16/22 release 24 hr (Detrol LA) iron polysacch cplx 150 mg 1 cap PO DAILY #90 caps 12/17/21 03/16/22 iron-vit B12 25 mcg-folic acid 1 mg capsule (Poly-Iron) metformin 500 mg tablet,extended 1,500 mg PO DAILY #280 tabs 12/17/21 03/16/22 release 24 hr pregabalin 100 mg capsule (Lyrica) 100 - 300 mg PO DIRECTED #360 12/17/21 03/16/22 caps diclofenac sodium 1 % topical gel 2 g topical QID #100 grams 03/20/22 (Arthritis Pain (diclofenac)) levothyroxine 25 mcg tablet 25 mcg PO DAILY #90 tabs 03/20/22 Previous Rx's Medication Instructions Recorded syringe with cannula,disposabl 17 #3 SYRGS 01/13/18 x 3 mL (BD Blunt Plastic Cannula) cyanocobalamin (vitamin B-12) 1,000 mcg IM MONTHLY #3 vials 10/26/19 1,000 mcg/mL injection solution folic acid 1 mg tablet 1 mg PO DAILY #90 tabs 11/06/20 albuterol sulfate 90 mcg/actuation 2 puff inhalation Q6H PRN ##1 12/02/20 aerosol inhaler (ProAir HFA) clonazepam 1 mg tablet (Klonopin) 1 mg .Route HS #60 tab-caps 12/02/20 cholecalciferol (vitamin D3) 50 2,000 unit PO DAILY #90 tab-caps 01/29/21 mcg (2,000 unit) capsule (Vitamin D3) ergocalciferol (vitamin D2) 1,250 50,000 unit PO .Twice a week #26 03/05/21 mcg (50,000 unit) capsule (Vitamin caps D2) clopidogrel 75 mg tablet 75 mg PO DAILY #90 tabs 09/22/21 rosuvastatin 20 mg tablet (Crestor) 20 mg PO QPM #90 tabs 09/22/21 tolterodine 2 mg capsule,extended 2 mg PO DAILY #90 tab-caps 09/22/21 release 24 hr (Detrol LA) iron polysacch cplx 150 mg 1 cap PO DAILY #90 caps 12/17/21 iron-vit B12 25 mcg-folic acid 1 mg capsule (Poly-Iron) metformin 500 mg tablet,extended 1,500 mg PO DAILY #280 tabs 12/17/21 release 24 hr pregabalin 100 mg capsule (Lyrica) 100 - 300 mg PO DIRECTED #360 12/17/21 caps diclofenac sodium 1 % topical gel 2 g topical QID #100 grams 03/20/22 (Arthritis Pain (diclofenac)) levothyroxine 25 mcg tablet 25 mcg PO DAILY #90 tabs 03/20/22 Allergies Allergy/AdvReac Type Severity Reaction Status Date / Time adhesive Allergy Intermediate Skin Rash Verified 03/20/22 20:24 doxycycline Allergy Unknown HIVES Verified 03/20/22 20:24 duloxetine [Duloxetine] AdvReac Severe AGITATION Verified 03/20/22 20:24 Oadcvjc-PPE-GzR Reductase AdvReac Severe Myalgias Verified 03/20/22 20:24 Inhibitor [Gbsgljk-Qle-Ddx Reductase Inhibitor] paroxetine AdvReac Intermediate IRRITABILIT Verified 03/20/22 20:24 Y gabapentin AdvReac Mild Interacts Verified 03/20/22 20:24 with other prescribed medications steristrips Allergy Intermediate glue Uncoded 03/20/22 20:24 causes blisters sx azul Allergy Intermediate blisters Uncoded 03/20/22 20:24 METAL Allergy Mild Skin Rash Uncoded 03/20/22 20:24 General Stated Complaint: Orthopedic VERO: 4 Review of Systems All systems reviewed & are unremarkable except as noted in HPI and below PFSH All Active Problems Contusion of right wrist (Acute) Contusion of elbow, right (Acute) Sacroiliac joint dysfunction of both sides (Acute) Elevated parathyroid hormone (Acute) Hammer toe of right foot (Acute) Insomnia (Acute) Diabetes type 2, uncontrolled (Acute) Lumbosacral spondylosis without myelopathy (Acute) 2020- pain clinic injections every fall Asthma (Acute) inhaler as needed Venous insufficiency of left leg (Acute 02/28/18) 2020- chronic and stable Balance problem (Acute 05/08/13) 2012 [facility] [place] [place] (MRI small vessel disease) Primary fibromyalgia syndrome (Acute) Dr Batista- [facility] [place]- now managed here Peripheral neuralgia (Acute) legs; MRI at [facility] of back=neg. Obstructive sleep apnea syndrome (Acute) C-pap; clonazepam managed by [facility] Obesity (Acute) Gastric bypass 12/2001 ([facility] Low vitamin D level (Acute 11/21/15) Endocrinology [facility] following vitamin D, Vitamin B12 & iron Hyperparathyroidism, unspecified (Acute) s/p gastric bypass follows endo [facility] Hyperlipidemia (Acute) stable on current meds Hirsutism (Acute) Essential hypertension (Acute 04/12/13) Stable low salt diet Disorder of vitamin B12 (Acute) h/o gastric bypass Endocrinology following vitamin D, Vitamin B12 & iron Depressive disorder (Acute) stable on current meds Cerebrovascular accident (Acute 08/18/17) Continue plavix stressed need for ongoing exercise/ activity and need for lipid and HTN control ASCVD (arteriosclerotic cardiovascular disease) (Acute) ? HX of IA; 07/19-MPI=old inf scar; no ischemia; LVEF-47%; MPI 11/19 neg. ischemia EF-43% echo 02/19- EF-65% Medical History Achilles tendon disorder (05/17/14) left, repeat surgery 2013 Carpal tunnel syndrome of right wrist Cerebrovascular accident (CVA) due to stenosis of posterior cerebral artery Essential hypertension H/O ETOH abuse Headache Herpes zoster Hirsutism History of alcohol abuse (05/13/15) not drinking at this time Hyperlipidemia Hyperparathyroidism Low back pain [facility] Low back pain with sciatica Low vitamin D level Migraine Neck pain 03/25-MRI [facility]; neuro eval [facility] Non-alcoholic fatty liver disease (12/25/12) [place] improved after gastric bypass ([facility] bx) NPDR (nonproliferative diabetic retinopathy) HUSSEIN (obstructive sleep apnea) Primary fibromyalgia syndrome Retinal detachment Retinal detachment of both eyes with giant retinal tear (06/16/07) repaired Shoulder pain right shoulder; MRI ([facility]R shoulder tendenosis Syncope (05/13/15) Traumatic rotator cuff tear left- Vasodepressor syncope (09/18/13) positive tilt test [facility] 07/02/15 (neg EEG and neuro eval and mult neg Holter/Event monitors) Visual disturbance Surgical History Abdominal hysterectomy (~1985) endometriosis; 1 ovary remains Arthroscopy, Shoulder (~07/2008) RIGHT Cholecystectomy (~1982) EXCISION OF SHOULDER (~09/2006) EXCISION OF RIGHT DISTAL CALVICLE Fracture, Open Treatment (~04/2006) INT FIX FINGER Gastric Bypass (~2001) History of gastric bypass Endocrinology following vitamin D, Vitamin B12 & iron History of shoulder surgery PINKY REPAIR LEFT Family History Mother , 87 Essential hypertension Heart disease Hyperlipidemia Asthma Lung cancer Father , 58 Heart disease Hyperlipidemia Alcohol abuse Brother Heart disease Substance abuse Maternal Grandfather Hyperlipidemia Paternal Grandfather No problems noted. Maternal Grandmother Kidney disease Paternal Grandmother No problems noted. Sister No problems noted. Social History Smoking/Tobacco Use Status: Former Tobacco Use tobacco type: cigarettes Quit Date: 07/18/83 Second Hand Exposure: Yes Smoking risk assessment performed?: Yes Alcohol Intake: former Drug use: Never Substance use type: does not use Details: uses CBD oil Caregiver/Support person: No Household members: spouse Housing: house Pets and animals: Yes Pets and animals: dog(s) Sexually active: No Do you think of yourself as: straight/heterosexual Current gender identity: female What is your relationship status?: How often do you talk on the phone with friends or family?: three or more times per week How often do you get together with friends or relatives?: three or more times per week How often do you attend lutheran or jehovah's witness services?: decline to answer Do you belong to any clubs or organized social groups?: no Panel score (0-1 are the most socially isolated patients): 2 What type of physical activity do you participate in: walking Frequency: daily Jodi/Episcopalian: No preference Special jdoi needs: No Seatbelt use: always Drive intox or ride w/intox regional dedicated truck driver: No Do you feel safe at home: Yes Do you feel safe in your relationship?: Yes Exam Narrative Exam Narrative: 1.Const: Well-nourished, Well-developed, appearing stated age 2.Eyes: PERRL, no conjunctival injection, and symmetrical lids. 3.ENT: Atraumatic external nose and ears. Moist MM. Neck: Symmetric, trachea midline, No thyromegaly. 4.CVS: +S1/S2, No murmurs or gallops. Peripheral pulses 2+ and equal in all extremities. Brisk capillary refill in all extremities. 5.RESP: Unlabored respiratory effort. Clear to auscultation bilaterally. No wheezes rales or rhonchi 6.GI: Soft, Nontender/Nondistended, No hepatosplenomegaly. No guarding or rebound. 7.MSK: Normocephalic/Atraumatic, Extremities w/o deformity. No cyanosis or clubbing, Normal movement of all extremities. Patient has mild tenderness in the medial epicondyles for the right elbow, and the distal radius for the right wrist. No pain at the anatomical snuffbox. No pain throughout the rest of the arm. Good retail route supervisor strength bilaterally, good flexion extension strength, 5 out of 5 bilaterally. Normal sensation, radial pulse +2. Capillary refill brisk. 8.Skin: Warm, Dry. No rashes or lesions. 9.Neuro: firestopper technician II-XII grossly intact. Sensation grossly intact, no focal neurologic deficits. 10.Psych: (AAO) x3. Appropriate mood and affect Course Vital Signs Vital signs: Vital Signs Temperature 36.3 C L 03/20/22 20:19 Pulse 62 03/20/22 20:19 Respiratory Rate 18 03/20/22 20:19 Blood Pressure 189/95 H 03/20/22 20:19 Pulse Oximetry 97 03/20/22 20:19 Temperature 36.3 C L 03/20/22 20:19 Pulse 62 03/20/22 20:19 Respiratory Rate 18 03/20/22 20:19 Respiratory Effort Non-Labored 03/20/22 20:21 Blood Pressure 189/95 H 03/20/22 20:19 Blood Pressure Position Sitting 03/20/22 20:19 Pulse Oximetry 97 03/20/22 20:19 Oxygen Delivery Method Room Air 03/20/22 20:19 Oxygen Flow Rate 0 03/20/22 20:19 Pain Level 10 03/20/22 20:21
== END 2022-03-20 21:50 | disposition home or self-care (01) ==
PROVIDERS: Emergency Provider Student in an Organized Health Care Education/Training Program; PCP Nurse Practitioner
DX: S60.211A Contusion of right wrist, initial encounter (principal); S50.01XA Contusion of right elbow, initial encounter; I10 Essential (primary) hypertension; E11.9 Type 2 diabetes mellitus without complications; Z86.73 Personal history of transient ischemic attack (TIA), and cerebral infarction without residual deficits; Z79.84 Long term (current) use of oral hypoglycemic drugs; Z87.891 Personal history of nicotine dependence; W19.XXXA Unspecified fall, initial encounter; Y93.01 Activity, walking, marching and hiking
CPT/HCPCS: 29125; 99284; 73080; 73110; 99282

== ENCOUNTER 2022-04-08 09:06 | Outpatient (CLI) | payer OTHER, SELFPAY ==
--- NOTE | 2022-04-08 06:00 | DI.RAD_ITS ---
Exam(s) XR PAIN CLINIC SACRIOILIAC 2V EXAM: XR PAIN CLINIC SACRIOILIAC 2V CLINICAL HISTORY: DX: sacroiliac dysfunction. TECHNIQUE: Fluoroscopy was provided for the referring physician for guidance with performing pain cl inic injection procedure. COMPARISON: No exams were available for comparison FINDINGS: Please see procedure note for details. Fluoro time: 26.9 seconds RADIATION DOSE DELIVERED: Ka,r=5.43 mGy
[2022-04-08 09:30] VITALS: BP 145/97; PULSE 60; RESP 20; TEMP 36.5; O2SAT 97
--- NOTE | 2022-04-08 10:03 | PDOC.PAIN_ITS ---
Pain Clinic Procedure Note Procedure Note Procedure Note: INTRA-ARTICULAR SI JOINT INJECTION Kemi Tanner has been referred to the Pain Management Center for intra- articular SI joint injection. COMMENTS: She was previously evaluated in our clinic. Pre-procedure pain VAS was 9/10. Dx: Sacroiliac joint dysfunction Patient was interviewed and the medical record reviewed. There were no medical, pharmacologic, radiographic or other structural contraindications to attempting fluoroscopically guided intra-articular SI joint injection. Risks and expected side effects as well as potential benefit of the procedure were reviewed and voiced concerns addressed. The printed consent form was signed and witnessed. Standard time-out procedure was performed. Patient was placed in the prone position on the fluoroscopy table and automated blood pressure cuff and pulse oximeter applied. The skin entry point for approaching the bilateral SI joints was identified under the most advantageous fluoroscopic view and marked. Following thorough Chlorhexadine preparation of the skin and draping and 1% lidocaine infiltration of the skin entry point and subcutaneous tissues, a 22 gauge spinal needle was placed under fluoroscopic guidance into the bilateral SI joints was identified under the most advantageous fluoroscopic view and marked. Intra-articular placement was confirmed by a clear arthrogram resulting from the injection of 0.25ml Omnipaque 240, 1ml 1% lidocaine, and 40mg Depomedrol were injected intra-articularily into each joint with an initial reproduction of a significant component of the usual pain. 1cc of 1% Lidocaine was used to flush each needle prior to their removal. Vital signs were stable throughout the procedure and were as recorded in the docflowsheet by the nursing staff. If given, dosages of intravenous drugs for anxiolysis and analgesia were documented in MAR. Follow up plans and appointments were discussed with the patient. Post procedure instruction was given as documented in nursing documentation and having met discharge criteria, and was discharged from the Pain Management Center. COMMENTS: Post-procedure pain VAS = 0/10. Jai Herrera DO, MPH [facility]-Pain Management [facility]-Center for Pain Management CC: Luz Maria Powers, PhD SAW STRAIGHTENER
[2022-04-08] MEDS: Omnipaque 240 MG/ML 50 ML BTL IJ (10:09)
[2022-04-08] MEDS: methylPREDNISolone ACETATE 80 MG/ML VIAL IJ (10:09)
[2022-04-08 10:10] VITALS: BP 152/87; PULSE 56; RESP 12; O2SAT 96
== END 2022-04-08 09:07 | disposition home or self-care (01) ==
LOC: PC 09:06
PROVIDERS: PCP Nurse Practitioner; Visit Provider Preventive Medicine Occupational Medicine
DX: M53.3 Sacrococcygeal disorders, not elsewhere classified (principal)
CPT/HCPCS: 27096; 72200; J1040; Q9967

== ENCOUNTER 2022-07-22 03:06 | Outpatient (CLI) | payer OTHER, SELFPAY ==
[2022-07-22 14:32] LABS: Hemoglobin A1C 6.1 % (<5.7)
[2022-07-22 14:58] LABS: ALT 80 U/L (14-59); AST 45 U/L (15-37); Albumin 3.9 g/dL (3.4-5.0); Alkaline Phosphatase 99 U/L (46-116); Anion Gap 4.4 mmol/L (3-11); BUN 12 mg/dL (7-18); Bilirubin, Total 0.5 mg/dL (0.2-1.0); CO2 31.6 mmol/L (21.0-32.0); CREATININE 0.8 mg/dL (0.55-1.02); Calcium 10.1 mg/dL (8.5-10.1); Chloride 107 mmol/L (98-107); Estimated GFR 77.75 (mL/min/1.73m2); Glucose 75 mg/dL (74-106); Potassium 4.6 mmol/L (3.5-5.1); Sodium 143 mmol/L (136-145); Total Protein 7.2 g/dL (6.4-8.2)
== END 2022-07-22 03:07 | disposition home or self-care (01) ==
LOC: LBO 03:06
PROVIDERS: PCP Nurse Practitioner Family; Visit Provider Nurse Practitioner Family
DX: E11.65 Type 2 diabetes mellitus with hyperglycemia (principal)
CPT/HCPCS: 36415; 80053; 83036

== ENCOUNTER 2022-07-22 11:47 | Outpatient (CLI) | payer OTHER, SELFPAY ==
--- NOTE | 2022-07-22 06:00 | DI.RAD_ITS ---
Exam(s) XR PAIN CLINIC SACRIOILIAC 2V EXAM: XR PAIN CLINIC SACRIOILIAC 2V CLINICAL HISTORY: Dx: Sacroiliac Joint Dysfunction TECHNIQUE: 2D and realtime digital imaging was performed. Radiologist not present. CONTRAST MATERIAL: None. COMPARISON: No exams were available for comparison FINDINGS: Fluoroscopy was provided for pain management therapy. Please refer to procedure report or details. Cumulative dose: Ka,r=5.27 mGy IMPRESSION: RADIATION DOSE DELIVERED:
[2022-07-22 12:57] VITALS: BP 141/89; PULSE 65; RESP 20; TEMP 36.8; O2SAT 92
--- NOTE | 2022-07-22 13:14 | PDOC.PAIN ---
Date of service: 07/22/22 Time of Service: 13:41 Pain Clinic Procedure Note Procedure Note Procedure Note: INTRA-ARTICULAR SI JOINT INJECTION Kemi Tanner has been referred to the Pain Management Center for intra-articular SI joint injection. COMMENTS: She was previously evaluated in the clinic. Pre-procedure pain VAS was 8/10. Dx: Sacroiliac joint dysfunction Patient was interviewed and the medical record reviewed. There were no medical, pharmacologic, radiographic or other structural contraindications to attempting fluoroscopically guided intra-articular SI joint injection. Risks and expected side effects as well as potential benefit of the procedure were reviewed and voiced concerns addressed. The printed consent form was signed and witnessed. Standard time-out procedure was performed. Patient was placed in the prone position on the fluoroscopy table and automated blood pressure cuff and pulse oximeter applied. The skin entry point for approaching the bilateral SI joints was identified under the most advantageous fluoroscopic view and marked. Following thorough Chlorhexadine preparation of the skin and draping and 1% lidocaine infiltration of the skin entry point and subcutaneous tissues, a 22 gauge spinal needle was placed under fluoroscopic guidance into the bilateral SI joints was identified under the most advantageous fluoroscopic view and marked. Following thorough Chlorhexadine preparation of the skin and draping and 1% lidocaine infiltration of the skin entry point and subcutaneous tissues, a 22 gauge spinal needle was placed under fluoroscopic guidance into the bilateral SI joints. Intra-articular placement was confirmed by a clear arthrogram resulting from the injection of 0.25ml Omnipaque 240, 1ml 1% lidocaine, and 40mg Depomedrol were injected intra-articularily with an initial reproduction of a significant component of the usual pain. Vital signs were stable throughout the procedure and were as recorded in the docflowsheet by the nursing staff. If given, dosages of intravenous drugs for anxiolysis and analgesia were documented in MAR. Follow up plans and appointments were discussed with the patient. Post procedure instruction was given as documented in nursing documentation and having met discharge criteria, and was discharged from the Pain Management Center. COMMENTS: If this procedure is found to be effective, it can be completed up to 3 times per 12 months. Post-procedure pain VAS was 0/10. Jai Herrera DO, MPH [facility]-Pain Management [facility]-Center for Pain Management CC: Joe Madrigal NP, Adebayo
[2022-07-22 13:30] VITALS: BP 143/80; PULSE 61; RESP 14; O2SAT 94
[2022-07-22] MEDS: methylPREDNISolone ACETATE 80 MG/ML VIAL IJ (14:17)
[2022-07-22] MEDS: Omnipaque 240 MG/ML 50 ML BTL IJ (14:18)
== END 2022-07-22 11:48 | disposition home or self-care (01) ==
LOC: PC 11:48
PROVIDERS: PCP Nurse Practitioner Family; Visit Provider Preventive Medicine Occupational Medicine
DX: M53.3 Sacrococcygeal disorders, not elsewhere classified (principal)
CPT/HCPCS: 27096; 72200; J1040; Q9967

== ENCOUNTER 2022-07-27 01:39 | Outpatient (CLI) | payer OTHER, SELFPAY ==
--- NOTE | 2022-07-27 07:15 | DI.RAD_ITS ---
Exam(s) XR ANKLE RT COMPLETE EXAM: XR ANKLE RT COMPLETE CLINICAL HISTORY: pain, LROM, denies trauma,[id number]. TECHNIQUE: 2D digital imaging was performed of the right ankle. Three images were obtained. AP, la teral and oblique views were obtained. COMPARISON: No exams were available for comparison FINDINGS: BONES: No acute fracture is present. No bony destructive lesion is seen. There is a small enthesophy te at the posterior calcaneus. JOINTS: The ankle mortise is normally aligned. SOFT TISSUE: Normal. IMPRESSION: No acute abnormality. If there is concern for internal derangement, an MRI may be obtained for furth er evaluation. DATA REPOSITORY: RADIATION DOSE DELIVERED:
== END 2022-07-27 01:59 ==
PROVIDERS: PCP Nurse Practitioner Family; Visit Provider Nurse Practitioner Family
DX: M25.571 Pain in right ankle and joints of right foot (principal)
CPT/HCPCS: 73610

== ENCOUNTER 2022-07-27 01:39 | Outpatient (CLI) | payer OTHER, SELFPAY ==
--- NOTE | 2022-07-27 12:43 | DI.MRI_ITS ---
Exam(s) MR LUMBAR SPINE WO EXAM: MR LUMBAR SPINE WO CLINICAL HISTORY: Right back pain with pain radiating to the rt big toe,radiculitis, m54.16. TECHNIQUE: Multiplanar multisequence MRI of the Lumbar spine was performed. COMPARISON: MR MRI - LUMBAR SPINE WO CONTRAST from 12/18/2015 FINDINGS: Bones: The last intervertebral disc space is designated the L5/S1 level for the numbering purpose of this examination. The vertebral body heights are well maintained. There is a mild left convex lumba r scoliosis. The signal characteristics are unremarkable. Cord: The conus tip ends at the T12-L1 level. It is of normal size and signal intensity. T12-L1: No disc herniations or bulges are present. No central spinal canal or neural foraminal stenos is. L1-2: No disc herniations or bulges are present. No central spinal canal or neural foraminal stenosis . L2-3: There is a mild diffuse disc bulge. There is no central spinal canal stenosis. There is mild right neural foraminal narrowing. No significant left neural foraminal stenosis. L3-4: No disc herniations or bulges are present. No central spinal canal or neural foraminal stenosis . L4-5: There is a mild diffuse disc bulge. There are hypertrophic changes of the facets. There is ve ry mild narrowing of the central spinal canal which results. No right neural foraminal stenosis is s een. There is mild left neural foraminal stenosis. L5-S1: No disc herniations or bulges are present. There are degenerative changes of the facet joints. No significant central spinal canal or neural foraminal stenosis is present. Soft tissues: The visualized SI joints and sacrum are well maintained. The paraspinal soft tissues ar e unremarkable. IMPRESSION: 1. Degenerative changes in the lumbar spine as described above. 2. Findings results in mild narrowing of the central spinal canal and left neural foramen at L4-L5. 3. There is also mild right neural foraminal narrowing at L2-L3. DATA REPOSITORY:
== END 2022-07-27 01:59 ==
LOC: DI 01:39
PROVIDERS: PCP Nurse Practitioner Family; Visit Provider Preventive Medicine Occupational Medicine
DX: M54.16 Radiculopathy, lumbar region (principal); M47.816 Spondylosis without myelopathy or radiculopathy, lumbar region
CPT/HCPCS: 72148

== ENCOUNTER 2022-08-24 11:13 | Outpatient (CLI) | payer OTHER, SELFPAY ==
--- NOTE | 2022-08-24 09:45 | DI.RAD_ITS ---
Exam(s) XR HIP LT COMPLETE AP PELVIS EXAM: XR HIP LT COMPLETE AP PELVIS CLINICAL HISTORY: fall,lt hip pain, m25.552. TECHNIQUE: 2D digital imaging was performed. COMPARISON: CR XR HIP LT COMPLETE AP PELVIS from 12/13/2019 FINDINGS: Two views No evidence of pelvic nor hip fracture. No obvious degenerative changes in the hips. Additional lat eral view of the left hip appears unremarkable and unchanged from November 2019. IMPRESSION: No significant findings. No radiographic change compared to November 2019. DATA REPOSITORY: RADIATION DOSE DELIVERED:
--- NOTE | 2022-08-24 09:45 | DI.RAD_ITS ---
Exam(s) XR LUMBAR SPINE COMPLETE EXAM: XR LUMBAR SPINE COMPLETE CLINICAL HISTORY: fall, lumbar radiculitis, m54.16. TECHNIQUE: 2D digital imaging was performed. COMPARISON: CR XR LUMBAR SPINE COMPLETE from 12/13/2019 FINDINGS: Five views: No evidence of fracture nor listhesis. There is scoliosis convex left having epicenter at L2-3 level where there is asymmetric narrowing of the right side of this disc space when compared to the left s leah. The other disc spaces appear to exhibit uniform height. Facet arthropathy noted at the lower 3 levels. SI joints unremarkable. Osteopenia but no compression fractures. No osseous lesions evident IMPRESSION: As above. Suspect element of foraminal stenosis on the right side at L 2-3 level due to the asymmetr ic narrowing of the right side of this disc space. DATA REPOSITORY: RADIATION DOSE DELIVERED:
== END 2022-08-24 11:33 ==
LOC: DI 11:26
PROVIDERS: PCP Nurse Practitioner Family; Visit Provider Nurse Practitioner Family
DX: M25.552 Pain in left hip (principal); M54.16 Radiculopathy, lumbar region; M41.9 Scoliosis, unspecified
CPT/HCPCS: 72110; 73502

== ENCOUNTER 2022-09-28 01:06 | Outpatient (CLI) | payer OTHER, SELFPAY ==
--- NOTE | 2022-09-28 07:45 | DI.MAMMO_ITS ---
Exam(s) MAMMO SCREENING EXAM: MAMMO SCREENING CLINICAL HISTORY: screening,z12.39 TECHNIQUE: Mammograms were interpreted according to the usual protocol including computer analysis w [employer] CAD system, tomosynthesis and C-view imaging. COMPARISON: 2012 through 2020 FINDINGS: The breasts are composed of scattered fibroglandular densities, Breast Density category B. No suspicious masses or suspicious microcalcifications are seen. No skin thickening or abnormal axillary lymph nodes are seen. There has been no significant change from prior exams. IMPRESSION: BI-RADS Category 1, Negative mammogram Yearly screening mammography is recommended. Breast Density - Category B, scattered fibroglandular densities. A negative radiographic report should not delay biopsy if a dominant or clinically suspicious mass is present. Up to ten percent of cancers are not identified on mammography. A negative report may reinforce clinical impression. Adenosis and dense breasts may obscure an underlying neoplasm. False positive reports average 6 to 10%. Patient will receive a letter notifying them of these results.
== END 2022-09-28 01:26 ==
PROVIDERS: PCP Nurse Practitioner Family; Visit Provider Nurse Practitioner Family
DX: Z12.31 Encounter for screening mammogram for malignant neoplasm of breast (principal)
CPT/HCPCS: 77063; 77067

== ENCOUNTER 2022-11-10 12:12 | Outpatient (CLI) | payer OTHER, SELFPAY ==
[2022-11-10 12:31] VITALS: BP 127/87; PULSE 60; RESP 20; TEMP 36.6; O2SAT 99
--- NOTE | 2022-11-10 12:55 | DI.RAD_ITS ---
Exam(s) XR PAIN CLINIC LUMBAR SP 2V EXAM: XR PAIN CLINIC LUMBAR SP 2V CLINICAL HISTORY: Dx: lumbar Radiculopathy. TECHNIQUE: Fluoroscopy was provided for the referring physician for guidance with performing pain cl inic injection procedure. COMPARISON: No exams were available for comparison FINDINGS: Please see procedure note for details. Fluoro time: 18 seconds RADIATION DOSE DELIVERED: Ileanar=7.94 mGy
[2022-11-10 12:58] VITALS: BP 152/89; PULSE 49; RESP 16; O2SAT 99
--- NOTE | 2022-11-10 12:58 | PDOC.PAIN ---
Date of service: 11/10/22 Time of Service: 13:01 Pain Managment Procedure Note Procedure Note Procedure Note: Lumbar Epidural Steroid Injection Procedure Note COMMENTS: I previously evaluated her in the clinic and re-reviewed her recent lumbar spine MRI. Dx: Lumbosacral radiculopathy Pre-procedure pain VAS was 7/10 Kemi Tanner has been referred to the [facility] for lumbar epidural steroid injection. The patient was greeted by the nurse who verified patients name and . Patient was then taken to the fluoroscopy suite. The patient was interviewed and the medial record reviewed. There were no medical, pharmacologic, radiographic, or other structural contraindications to attempting fluoroscopically guided lumbar epidural steroid injection. Risks and expected side effects as well as potential benefits of the procedure were reviewed and voiced concerns expressed. The patient consent form was signed and witnessed. Standard patient time-out procedure was performed. The patient was placed in the prone position on the fluoroscopy table and automated blood pressure cuff and pulse oximeter applied. The skin entry point for entering/approaching the epidural space at L5-S1 and marked. Following thorough chlorhexadine preparation of the skin and draping and 1% lidocaine infiltration of the skin entry point and subcutaneous tissues, a 18 gauge 3.5 Touhy needle was placed under fluoroscopic guidance and with loss of resistance technique into the epidural space. Needle tip placement and depth were aided and confirmed by fluoroscopy. There was no paresthesia or return of blood or CSF through the needle. 1 cc's of Omnipaque 240 was injected with clear epidural spread confirmed with fluoroscopy. 80mg depomedrol was injected. There was not any unusual discomfort expressed by Kemi Tanner. This was followed with 2 cc of 1% Lidocaine and the needle was removed. Patient's vital signs were stable throughout the procedure and were as recorded in nursing records. Follow up plans and appointments were discussed with patient. Post procedure instruction was given as documented in nursing records and having met discharge criteria and was discharged from the [facility]. COMMENTS: If this procedure is helpful, it can be completed up to 3 times per 12 months. Post-procedure pain VAS was 0/10 Jai Herrera DO, MPH [facility]
[2022-11-10] MEDS: Omnipaque 240 MG/ML 50 ML BTL IJ (13:02)
[2022-11-10] MEDS: methylPREDNISolone ACETATE 80 MG/ML VIAL IJ (13:02)
== END 2022-11-10 12:13 | disposition home or self-care (01) ==
LOC: PC 12:12
PROVIDERS: PCP Nurse Practitioner Family; Visit Provider Preventive Medicine Occupational Medicine
DX: M54.17 Radiculopathy, lumbosacral region (principal)
CPT/HCPCS: 62323; 72100; J1040; Q9967

== ENCOUNTER 2022-12-07 20:10 | Outpatient (REF) | payer OTHER, SELFPAY ==
[2022-12-07 21:20] LABS: *AMPHETAMINES SCREEN URINE Negative (Negative); *BARBITURATES SCREEN URINE Negative (Negative); *BENZODIAZEPINES SCREEN URINE Negative (Negative); Cannabinoids THC Negative (Negative); Cocaine Screen,Urine Negative (Negative); METHADONE URINE SCREEN Negative (Negative); OPIATES URINE SCREEN Negative (Negative)
[2022-12-07 21:21] LABS: Tricyclic Antidepressants Negative (Negative)
[2022-12-08 14:27] LABS: Lab Add On Test DONE
[2022-12-13 07:18] LABS: 2-OH-Ethyl-Flurazepam Negative ng/mL (Cutoff: 10); 7-NH-Clonazepam 132 ng/mL (Cutoff: 10); 7-NH-Flunitrazepam Negative ng/mL (Cutoff: 10); Alpha OH-Alprazolam Negative ng/mL (Cutoff: 10); Alpha-OH Midazolam Negative ng/mL (Cutoff: 10); Alpha-OH-Triazolam Negative ng/mL (Cutoff: 10); Alprazolam Negative ng/mL (Cutoff: 10); Benzodiazepines Interpretation Positive.; Chlordiazepoxide Negative ng/mL (Cutoff: 10); Clobazam Negative ng/mL (Cutoff: 10); Clonazepam Negative ng/mL (Cutoff: 10); Diazepam Negative ng/mL (Cutoff: 10); Flurazepam Negative ng/mL (Cutoff: 10); Lorazepam Negative ng/mL (Cutoff: 10); Midazolam Negative ng/mL (Cutoff: 10); N-Desmethylclobazam Negative ng/mL (Cutoff: 10); Prazepam Negative ng/mL (Cutoff: 10); Temazepam Negative ng/mL (Cutoff: 10); Triazolam Negative ng/mL (Cutoff: 10); Zolpidem Carboxylic acid Negative ng/mL (Cutoff: 10)
== END 2022-12-07 20:11 | disposition home or self-care (01) ==
LOC: LBN 20:10
PROVIDERS: PCP Nurse Practitioner Family; Visit Provider Nurse Practitioner Family
DX: F41.8 Other specified anxiety disorders (principal); Z79.899 Other long term (current) drug therapy
CPT/HCPCS: 80307; 80346

== ENCOUNTER 2023-02-24 02:56 | Outpatient (CLI) | payer OTHER, SELFPAY ==
[2023-02-24 11:32] LABS: Anion Gap 10.7 mmol/L (3-11); BUN 18 mg/dL (7-18); CO2 24.3 mmol/L (21.0-32.0); CREATININE 0.8 mg/dL (0.55-1.02); Calcium 9.1 mg/dL (8.5-10.1); Chloride 112 mmol/L (98-107); Estimated GFR 77.27 (mL/min/1.73m2); Glucose 159 mg/dL (74-106); Potassium 3.7 mmol/L (3.5-5.1); Sodium 147 mmol/L (136-145)
== END 2023-02-24 02:57 | disposition home or self-care (01) ==
LOC: LBO 02:56
PROVIDERS: PCP Nurse Practitioner Family; Visit Provider Nurse Practitioner Family
DX: I10 Essential (primary) hypertension (principal); E78.5 Hyperlipidemia, unspecified; E11.9 Type 2 diabetes mellitus without complications; F41.8 Other specified anxiety disorders
CPT/HCPCS: 36415; 80048

== ENCOUNTER → 2023-09-30 01:15 | Outpatient (CLI) | payer OTHER, SELFPAY ==
--- NOTE | 2023-09-30 11:05 | DI.MAMMO_ITS ---
Exam(s) MAMMO SCREENING EXAM: MAMMO SCREENING CLINICAL HISTORY: screening,Z12.39 TECHNIQUE: Mammograms were interpreted according to the usual protocol including computer analysis w [employer] CAD system, tomosynthesis and C-view imaging. COMPARISON: 2014 through 2022 FINDINGS: The breasts are composed of scattered fibroglandular densities, Breast Density category B. No suspicious masses or suspicious microcalcifications are seen. No skin thickening or abnormal axillary lymph nodes are seen. There has been no significant change from prior exams. IMPRESSION: BI-RADS Category 1, Negative mammogram Yearly screening mammography is recommended. Breast Density - Category B, scattered fibroglandular densities. A negative radiographic report should not delay biopsy if a dominant or clinically suspicious mass is present. Up to ten percent of cancers are not identified on mammography. A negative report may reinforce clinical impression. Adenosis and dense breasts may obscure an underlying neoplasm. False positive reports average 6 to 10%. Patient will receive a letter notifying them of these results.
== END ==
PROVIDERS: PCP Nurse Practitioner Family; Visit Provider Nurse Practitioner Family
DX: Z12.31 Encounter for screening mammogram for malignant neoplasm of breast (principal)
CPT/HCPCS: 77063; 77067

== ENCOUNTER → 2024-01-23 13:50 | Outpatient (CLI) | payer OTHER, SELFPAY ==
--- NOTE | 2024-01-23 14:00 | DI.RAD_ITS ---
Exam(s) XR LUMBAR SPINE COMPLETE EXAM: XR LUMBAR SPINE COMPLETE CLINICAL HISTORY: fall 2 weeks ago, RT HIP PAIN, M25.551. TECHNIQUE: 2D digital imaging was performed of the lumbar spine. Five images were obtained. AP, la teral, right oblique, left oblique and L5-S1 spot views were obtained. COMPARISON: CR XR LUMBAR SPINE COMPLETE from 08/24/2022 CR XR HIP RT COMPLETE AP PELVIS from 01/23/2024 FINDINGS: BONES: No fracture or destructive lesion. Endplate osteophytes are seen in the endplates particularly at L2-L3. There are degenerative changes of the facets seen at L4-5 and L5-S1. DISKS: There is disc space narrowing at L2-L3, L4-L5 and T12-L1. ALIGNMENT: There is a left convex lumbar scoliosis. No spondylolysis or spondylolisthesis. SOFT TISSUE: Vascular calcifications are present. Surgical clips are seen in the abdomen. IMPRESSION: 1. Degenerative changes are seen in the lumbar spine. 2. No acute fracture or subluxation. DATA REPOSITORY: RADIATION DOSE DELIVERED:
--- NOTE | 2024-01-23 14:00 | DI.RAD_ITS ---
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 TECHNIQUE: 2D digital imaging was performed of the right hip. Two images were obtained. AP pelvis a nd lateral right hip views were obtained. COMPARISON: CR XR HIP LT COMPLETE AP PELVIS from 08/24/2022 FINDINGS: BONES: No acute fracture is present. No bony destructive lesion is seen. JOINTS: No dislocation present. Small osteophyte at the right acetabulum. The joint spaces otherwise well maintained. The left hip is unremarkable. The sacroiliac joints are unremarkable as is the sy mphysis pubis. SOFT TISSUE: Normal. IMPRESSION: No evidence of an acute or healing fracture or dislocation. DATA REPOSITORY: RADIATION DOSE DELIVERED:
--- NOTE | 2024-01-23 17:20 | DI.VRAD_ITS ---
PROCEDURE INFORMATION: Exam: XR Lumbosacral Spine Exam date and time: 01/23/2024 4:30 PM Age: 73 years old Clinical indication: Injury or trauma; Blunt trauma (contusions or hematomas); Injury details: Fall two weeks ago, lumbosacral spondylosis w/o myelopathy, m47.817 TECHNIQUE: Imaging protocol: Radiologic exam of the lumbosacral spine. Views: 4 or 5 views. COMPARISON: 1. OT XR PAIN CLINIC LUMBAR SP 2V 11/10/2022 11:54 AM 2. CR XR LUMBAR SPINE COMPLETE 08/24/2022 10:07 AM 3. MR LUMBAR SPINE WO 07/27/2022 12:12 PM 4. CR XR HIP RT COMPLETE AP PELVIS 01/23/2024 4:27 PM FINDINGS: Bones/joints: There is a slight levoscoliosis of the lumbar spine. The vertebral bodies maintain their height throughout. The pedicles are intact. There is a normal lordosis. There is disc space narrowing at L2-L3 and L4-L5. Soft tissues: Unremarkable. IMPRESSION: Slight levoscoliosis of the lumbar spine. Disc space narrowing L2-L3 and L4-L5. Dictated and Authenticated by: Naveed James MD. Ordering:JOJO Fiore MD
--- NOTE | 2024-01-23 17:33 | DI.VRAD_ITS ---
PROCEDURE INFORMATION: Exam: XR Right Hip Exam date and time: 01/23/2024 4:27 PM Age: 73 years old Clinical indication: Injury or trauma; Blunt trauma (contusions or hematomas); Right; Injury details: Fall 2 weeks ago, RT hip pain, m25.551 TECHNIQUE: Imaging protocol: Radiologic exam of the right hip. Views: 2 or 3 views hip with pelvis when performed. COMPARISON: OT XR PAIN CLINIC LUMBAR SP 2V 11/10/2022 11:54 AM FINDINGS: Bones/joints: Unremarkable. No acute fracture. Soft tissues: Unremarkable. IMPRESSION: No acute findings. Dictated and Authenticated by: Arnold Pat MD. Ordering:JOJO Fiore MD
== END ==
PROVIDERS: PCP Nurse Practitioner Family; Visit Provider Nurse Practitioner Family
DX: M25.551 Pain in right hip (principal); M51.36 Other intervertebral disc degeneration, lumbar region; M51.35 Other intervertebral disc degeneration, thoracolumbar region; M47.817 Spondylosis without myelopathy or radiculopathy, lumbosacral region; Z91.81 History of falling
CPT/HCPCS: 72110; 73502

== ENCOUNTER 2024-08-27 21:16 | Outpatient (REF) | payer OTHER, SELFPAY ==
[2024-08-27 21:59] LABS: HCT 43.8 % (36.0-46.0); MCH 27.6 pg (27.0-33.0); MCV 86 fL (80-95); MPV 9.8 fL (8.0-11.0); Platelet Count 196 10^3/uL (130-400); RBC 5.08 10^6/uL (3.93-5.22); RDW 14.3 % (11.7-14.6); RDW-SD 45.6 fL; WBC 5.44 10^3/uL (4.4-10.8)
[2024-08-27 22:39] LABS: ALT 76 U/L (14-59); AST 70 U/L (15-37); Albumin 4.3 g/dL (3.4-5.0); Alkaline Phosphatase 133 U/L (46-116); Anion Gap 10.4 mmol/L (3-11); BUN 13 mg/dL (7-18); Bilirubin, Total 0.86 mg/dL (0.2-1.0); CO2 27.6 mmol/L (21.0-32.0); CREATININE 0.9 mg/dL (0.55-1.02); Calcium 10.3 mg/dL (8.5-10.1); Calculated LDL 106 mg/dL (<100); Chloride 105 mmol/L (98-107); Cholesterol 184 mg/dL (<200); Estimated GFR 66.67 (mL/min/1.73m2); Glucose 138 mg/dL (74-106); HDL Cholesterol 53 mg/dL (40-60); Sodium 143 mmol/L (136-145); TSH (W/Ref FT4) 3.29 uIU/mL (0.36-3.74); Total Protein 7.7 g/dL (6.4-8.2); Triglyceride 126 mg/dL (<150); Vitamin B12 347 pg/mL (193-986)
[2024-08-28 18:16] LABS: Parathyroid Hormone,Intact 216.3 pg/mL (19.0-88.0)
== END 2024-08-27 21:17 | disposition home or self-care (01) ==
LOC: LBN 21:16
PROVIDERS: PCP Nurse Practitioner Family; Visit Provider Nurse Practitioner Family
DX: E11.65 Type 2 diabetes mellitus with hyperglycemia (principal); E53.8 Deficiency of other specified B group vitamins; Z51.81 Encounter for therapeutic drug level monitoring; R79.89 Other specified abnormal findings of blood chemistry; E21.3 Hyperparathyroidism, unspecified
CPT/HCPCS: 80053; 80061; 82306; 85027; 82607; 83970; 84443

== ENCOUNTER 2025-02-18 17:18 | Emergency (ER) | payer OTHER, SELFPAY ==
[2025-02-18 17:21] VITALS: BP 137/96; PULSE 85; RESP 15; TEMP 36.8; O2SAT 96
--- NOTE | 2025-02-18 18:05 | DI.RAD_ITS ---
Exam(s) XR KNEE LT 3V AP,LAT,TIERRA EXAM: XR KNEE LT 3V AP,LAT,TIERRA CLINICAL HISTORY: pain after a fall. TECHNIQUE: 2D digital imaging was performed. COMPARISON: CR XR KNEE RT 3V AP,LAT,TIERRA from 07/15/2020 FINDINGS: 3 views No evidence of obvious fracture but there does appear to be a small joint effusion. There are moderate degenerative changes in the lateral compartment. Milder degenerative changes in the medial and patellofemoral compartments. On the lateral view there is evident a 5 x 4 mm calcific density in the anterior aspect of the joint space consistent with loose intra-articular body. This is a just above the anterior tibial plateau. IMPRESSION: No acute fractures. Small joint effusion. Degenerative changes. There is a 5 x 4 mm calcified loose body anteriorly in the joint space noted, best seen on the lateral view. DATA REPOSITORY: RADIATION DOSE DELIVERED:
--- NOTE | 2025-02-18 19:02 | W.ED.GENAD ---
Discharge Plan Disposition Patient Disposition: Home Condition: Stable Discharge Details Clinical Impression: Contusion of left knee Primary Care Provider: Adebayo Jensen ED Provider: Shaneka Greene Home Meds and New Rx's Prescriptions: No Action pregabalin 300 mg capsule 300 mg PO DIRECTED Qty: 90 1RF Rx Instructions: per rheumatology rosuvastatin [Crestor] 20 mg tablet 20 mg PO QPM Qty: 90 3RF amlodipine 5 mg tablet 5 mg PO DAILY Qty: 90 4RF clonazepam [Klonopin] 1 mg tablet 1 mg .ROUTE HS Qty: 60 2RF Rx Instructions: 1.5 mg bedtime; (DME) OneTouch Ultra Test Strip See Rx Instructions .ROUTE .MEDSUPPLY Qty: 200 3RF Rx Instructions: Check blood sugar twice a day clopidogrel 75 mg tablet 75 mg PO DAILY Qty: 90 3RF mirtazapine 30 mg tablet 15 mg PO QHS Qty: 90 3RF Discharge Instructions Instructions: Knee Pain ED Additional Instructions: As discussed, you were found to have calcification on your knee that likely broke off on your fall. For this I recommend outpatient follow-up with the orthopedic clinic down the street which your family are with. Please call the office in the morning to make an appointment. Take mwhf-kqe-zhrkoin pain medication as needed. Use your walker for ambulation in the meantime worse or develop any new or concerning symptoms please return to the emergency department for reevaluation. Referrals: Adrián Kelly MD [ [facility] STAFF PHYSICIAN, Orthopaedic Surgical] HPI General Date/Time Provider Initiated Documentation: 02/18/25 17:32. HPI Narrative: The patient is a 74-year-old female history of recurrent falls who comes emergency department for left-sided knee pain. The patient reports that a week ago she was getting out of her power chair when she fell on her left knee. Reports she scraped up her left knee but since then her left knee has been bothering her a lot more than normal. Reports any little movement causes her to have worsening pain. Reports she does not take pain medication and therefore has not taken anything for pain. Reports that she has never had problems on the left knee before denies numbness or tingling sensation. Denies hitting her head or any loss of consciousness.. Reports that the right upper back also hurts but it is not hurting as bad as her left knee. Reports she otherwise feels at baseline health. Related Data Home Medications ?Medication ?Instructions ?Recorded ?Confirmed clonazepam 1 mg tablet (Klonopin) 1 mg .Route HS #60 tab-caps 12/02/20 02/18/25 blood sugar diagnostic (OneTouch #200 ea 12/07/22 02/18/25 Ultra Test strips) clopidogrel 75 mg tablet 75 mg PO DAILY #90 tabs 06/27/24 02/18/25 mirtazapine 30 mg tablet 15 mg (1/2 x 30 mg) PO QHS #90 tabs 06/27/24 02/18/25 amlodipine 5 mg tablet 5 mg PO DAILY #90 tabs 02/05/25 02/18/25 pregabalin 300 mg capsule 300 mg PO DIRECTED #90 caps 02/05/25 02/18/25 rosuvastatin 20 mg tablet (Crestor) 20 mg PO QPM #90 tabs 02/05/25 02/18/25 Previous Rx's ?Medication ?Instructions ?Recorded clonazepam 1 mg tablet (Klonopin) 1 mg .Route HS #60 tab-caps 12/02/20 blood sugar diagnostic (OneTouch #200 ea 12/07/22 Ultra Test strips) clopidogrel 75 mg tablet 75 mg PO DAILY #90 tabs 06/27/24 mirtazapine 30 mg tablet 15 mg (1/2 x 30 mg) PO QHS #90 tabs 06/27/24 amlodipine 5 mg tablet 5 mg PO DAILY #90 tabs 02/05/25 pregabalin 300 mg capsule 300 mg PO DIRECTED #90 caps 02/05/25 rosuvastatin 20 mg tablet (Crestor) 20 mg PO QPM #90 tabs 02/05/25 Allergies Allergy/AdvReac Type Severity Reaction Status Date / Time adhesive Allergy Intermediate Skin Rash Verified 02/18/25 17:28 doxycycline Allergy Unknown HIVES Verified 02/18/25 17:28 duloxetine (Duloxetine) AdvReac Severe AGITATION Verified 02/18/25 17:28 Fvruwun-RLU-KwH Reductase AdvReac Severe Myalgias Verified 02/18/25 17:28 Inhibitor (Ocgqesf-Kxd-Qmk Reductase Inhibitor) paroxetine AdvReac Intermediate IRRITABILIT Verified 02/18/25 17:28 Y gabapentin AdvReac Mild Interacts Verified 02/18/25 17:28 with other prescribed medications steristrips Allergy Intermediate glue Uncoded 02/18/25 17:28 causes blisters sx azul Allergy Intermediate blisters Uncoded 02/18/25 17:28 METAL Allergy Mild Skin Rash Uncoded 02/18/25 17:28 General Stated Complaint: Orthopedic VERO: 3 Review of Systems Narrative: Review of systems are negative except as mentioned. Exam Narrative Exam Narrative: General appearance: The patient is alert, has no immediate need for airway protection and no signs of toxicity. Cardiovascular: Patient has strong left posterior tibialis pulse. Neurological: The patient is alert, awake and oriented x 3. The patient has intact sensation to light touch throughout the entire left lower extremity. Skin: The patient has a scabbed over wound to the left knee without overlying erythema or increased warmth to the touch. The entire left knee is not erythematous. Back: No CVA tenderness is noted to palpation bilaterally. Extremities: The patient has no tenderness palpation and range of motion testing to the left hip, left thigh, leg or ankle. She has tenderness palpation to the left knee circumferentially with tenderness and range of motion testing in all plane. The patient also has tenderness palpation to the right upper back without right lateral, anterior or posterior hip tenderness to palpation. The rest of her right lower extremity she reports is tender to palpation but baseline for her. No midline lumbar spine tenderness is noted to palpation. Course Vital Signs Vital signs: Vital Signs Temperature 36.8 C 02/18/25 17:21 Pulse 85 02/18/25 17:21 Respiratory Rate 15 02/18/25 17:21 Blood Pressure 137/96 H 02/18/25 17:21 Pulse Oximetry 96 02/18/25 17:21 Temperature 36.8 C 02/18/25 17:21 Temperature Source Oral 02/18/25 17:21 Pulse 85 02/18/25 17:21 Respiratory Rate 15 02/18/25 17:21 Blood Pressure 137/96 H 02/18/25 17:21 Blood Pressure Position Sitting 02/18/25 17:21 Pulse Oximetry 96 02/18/25 17:21 Oxygen Delivery Method Room Air 02/18/25 17:21 Oxygen Flow Rate 0 02/18/25 17:21 Pain Level 5 02/18/25 17:21 Medical Decision Making Imaging study has been ordered on the patient's left knee and the patient is found to have loose body calcification in the joint space of the left knee which is likely the etiology of her pain. I explained this to the patient. She was complaining of right upper back pain. I talked her about imaging study of this however she declined. She also declined a knee immobilizer or pain medication. She request referral to the audio specialist down the street. I told her I will certainly refer her to the orthopedic clinic and therefore encouraged her to call the office first thing in the morning to make an appointment. I told her if she does get worse or develop any new or concerning symptoms return to the emergency department otherwise take aroz-aqy-[id number] pain medication as needed and follow-up as discussed. Imaging Data Radiologic Study: Imaging: X-Ray (right knee) Radiologist's impression: No acute fractures. Small joint effusion. Degenerative changes. There is a 5 x 4 mm calcified loose body anteriorly in the joint space noted, best seen on the lateral view. Quality:SDOH Health Related Social Needs: Health related social needs lonely/isolated PFSH All Active Problems (Updated 02/18/25 @ 19:33 by Shaneka Greene DO) Contusion of left knee (Acute) Medication monitoring encounter (Acute) Right hip pain (Acute) Chronic prescription benzodiazepine use (Acute) Left upper quadrant abdominal pain (Acute) Psychological and behavioral factors associated with disorders or diseases classified elsewhere (Acute) Chronic pain (Chronic) Left hip pain (Acute) Right ankle pain (Acute) Chronic pain syndrome (Chronic) Lumbar radiculitis (Acute) Sacroiliac joint dysfunction of both sides (Acute) Elevated parathyroid hormone (Acute) Hammer toe of right foot (Acute) Insomnia (Acute) Diabetes type 2, uncontrolled (Acute) Lumbosacral spondylosis without myelopathy (Acute) 2020- pain clinic injections every fall Asthma (Acute) inhaler as needed Venous insufficiency of left leg (Acute 02/28/18) 2020- chronic and stable Balance problem (Acute 05/08/13) [place] [facility] [place] (MRI small vessel disease) Primary fibromyalgia syndrome (Acute) Dr Batista- [facility] [place]- now managed here Peripheral neuralgia (Acute) legs; MRI at [facility] [place] of back=neg. Obstructive sleep apnea syndrome (Acute) C-pap; clonazepam [place] [facility] [place] Obesity (Acute) Gastric bypass 12/2001 ([facility] [place] Low vitamin D level (Acute 11/21/15) Endocrinology [facility] [place] following vitamin D, Vitamin B12 & iron Hyperparathyroidism, unspecified (Acute) s/p gastric bypass follows endo [facility] [place] Hyperlipidemia (Acute) stable on current meds Hirsutism (Acute) Essential hypertension (Acute 04/12/13) Stable low salt diet Disorder of vitamin B12 (Acute) h/o gastric bypass Endocrinology following vitamin D, Vitamin B12 & iron Depressive disorder (Acute) stable on current meds Cerebrovascular accident (Acute 08/18/17) Continue plavix stressed need for ongoing exercise/ activity and need for lipid and HTN control ASCVD (arteriosclerotic cardiovascular disease) (Acute) ? HX of [place]; 07/19-MPI=old inf scar; no ischemia; LVEF-47%; MPI 11/19 neg. ischemia EF-43% echo 02/19- EF-65% NPDR (nonproliferative diabetic retinopathy) (Acute) Medical History Traumatic rotator cuff tear left- History of alcohol abuse (05/13/15) not drinking at this time Retinal detachment of both eyes with giant retinal tear (06/16/07) repaired Vasodepressor syncope (09/18/13) positive tilt test [facility] [place] 07/02/15 (neg EEG and neuro eval and mult neg Holter/Event monitors) Syncope (05/13/15) Shoulder pain right shoulder; MRI ([facility] [place])-R shoulder tendenosis Non-alcoholic fatty liver disease (12/25/12) [place] improved after gastric bypass ([facility] [place] bx) Neck pain 03/25-MRI [facility] [place]; neuro eval [facility] [place] Low back pain [facility] [place] pain clinic at [facility] Achilles tendon disorder (05/17/14) left, repeat surgery 2013 Primary fibromyalgia syndrome H/O ETOH abuse Cerebrovascular accident (CVA) due to stenosis of posterior cerebral artery Visual disturbance Retinal detachment Hyperparathyroidism Hyperlipidemia Hirsutism Migraine Headache Essential hypertension Herpes zoster Low vitamin D level HUSSEIN (obstructive sleep apnea) Low back pain with sciatica Carpal tunnel syndrome of right wrist Surgical History History of gastric bypass Endocrinology following vitamin D, Vitamin B12 & iron History of shoulder surgery PINKY REPAIR LEFT Abdominal hysterectomy (~1985) endometriosis; 1 ovary remains Gastric Bypass (~2001) Fracture, Open Treatment (~04/2006) INT FIX FINGER EXCISION OF SHOULDER (~09/2006) EXCISION OF RIGHT DISTAL CALVICLE Cholecystectomy (~1982) Arthroscopy, Shoulder (~07/2008) RIGHT Family History Mother , 87 Essential hypertension Heart disease Hyperlipidemia Asthma Lung cancer Father , 58 Heart disease Hyperlipidemia Alcohol abuse Brother Heart disease Substance abuse Maternal Grandfather Hyperlipidemia Paternal Grandfather No problems noted. Maternal Grandmother Kidney disease Paternal Grandmother No problems noted. Sister No problems noted. Social History Smoking/Tobacco Use Status: Former Tobacco Use tobacco type: cigarettes Quit Date: 07/18/83 Second Hand Exposure: Yes Smoking risk assessment performed?: Yes Alcohol Intake: former Drug use: Rarely Substance use type: painkillers Details: uses CBD oil Caregiver/Support person: No Household members: spouse Housing: apartment Communication Needs: None Do you need help understanding health information?: Often Pets and animals: Yes Pets and animals: dog(s) Sexually active: No Do you think of yourself as: straight/heterosexual Current gender identity: female What is your relationship status?: How often do you talk on the phone with friends or family?: three or more times per week How often do you get together with friends or relatives?: decline to answer How often do you attend episcopal or baptism services?: decline to answer Do you belong to any clubs or organized social groups?: no Panel score (0-1 are the most socially isolated patients): 2 What type of physical activity do you participate in: walking Frequency: daily Jodi/Mandaen: No preference Special jodi needs: No Seatbelt use: always Drive intox or ride w/intox dedicated local truck driver: No Do you feel safe at home: Yes Do you feel safe in your relationship?: Yes
[2025-02-18 19:34] VITALS: BP 160/98; PULSE 69; RESP 16; TEMP 36.3; O2SAT 97
[2025-02-18 19:50] VITALS: BP 160/74; PULSE 78; RESP 16; O2SAT 98
== END 2025-02-18 19:50 | disposition home or self-care (01) ==
PROVIDERS: Emergency Provider Emergency Medicine; PCP Nurse Practitioner Family
DX: S80.02XA Contusion of left knee, initial encounter (principal); M25.462 Effusion, left knee; M23.41 Loose body in knee, right knee; E11.9 Type 2 diabetes mellitus without complications; I10 Essential (primary) hypertension; E78.5 Hyperlipidemia, unspecified; Z79.02 Long term (current) use of antithrombotics/antiplatelets; Z98.84 Bariatric surgery status; Z86.73 Personal history of transient ischemic attack (TIA), and cerebral infarction without residual deficits; Z87.891 Personal history of nicotine dependence; V00.811A Fall from moving wheelchair (powered), initial encounter
CPT/HCPCS: 73562; 99283

== ENCOUNTER 2025-03-19 17:52 | Outpatient (REF) | payer OTHER, SELFPAY ==
[2025-03-19 22:20] LABS: Abs Immature Grans 0.01 10^3/uL (0.0-0.06); HCT 38.4 % (36.0-46.0); HGB 12.4 g/dL (11.2-15.7); Immature Grans % 0.2 %; MCH 27.4 pg (27.0-33.0); MCHC 32.3 % (32.0-36.0); MCV 85 fL (80-95); MPV 9.7 fL (8.0-11.0); Platelet Count 207 10^3/uL (130-400); RBC 4.52 10^6/uL (3.93-5.22); RDW 15.1 % (11.7-14.6); RDW-SD 46.9 fL; WBC 4.82 10^3/uL (4.4-10.8)
[2025-03-19 22:29] LABS: ALT 101 U/L (14-59); AST 64 U/L (15-37); Albumin 3.9 g/dL (3.4-5.0); Alkaline Phosphatase 134 U/L (46-116); Anion Gap 10.0 mmol/L (3-11); BUN 14 mg/dL (7-18); Bilirubin, Total 0.7 mg/dL (0.2-1.0); CO2 26.0 mmol/L (21.0-32.0); Calcium 9.9 mg/dL (8.5-10.1); Chloride 103 mmol/L (98-107); Estimated GFR 66.26 (mL/min/1.73m2); Glucose 210 mg/dL (74-106); Potassium 3.6 mmol/L (3.5-5.1); Sodium 139 mmol/L (136-145); Total Protein 6.6 g/dL (6.4-8.2)
== END 2025-03-19 17:53 | disposition home or self-care (01) ==
LOC: LBN 17:52
PROVIDERS: PCP Nurse Practitioner Family; Visit Provider Registered Nurse
DX: M25.562 Pain in left knee (principal)
CPT/HCPCS: 80053; 85025

== ENCOUNTER 2025-05-23 13:31 | Emergency (ER) | payer OTHER, SELFPAY ==
[2025-05-23 13:34] VITALS: BP 126/85; PULSE 64; RESP 20; TEMP 36.7; O2SAT 96
--- NOTE | 2025-05-23 14:08 | W.ED.GENAD ---
Discharge Plan Disposition Patient Disposition: Home Condition: Improving Discharge Details Clinical Impression: Acute UTI (urinary tract infection), Bradycardia, sinus Primary Care Provider: Adebayo Jensen ED Provider: Fausto Lizama Meds and New Rx's Prescriptions: New amoxicillin-pot clavulanate 875-125 mg tablet 1 tab PO BID Qty: 14 0RF Continued pregabalin 300 mg capsule 300 mg PO DIRECTED Qty: 90 1RF Rx Instructions: per rheumatology rosuvastatin [Crestor] 20 mg tablet 20 mg PO QPM Qty: 90 3RF amlodipine 5 mg tablet 5 mg PO DAILY Qty: 90 4RF clonazepam [Klonopin] 1 mg tablet 1 mg .ROUTE HS Qty: 60 2RF Rx Instructions: 1.5 mg bedtime; (DME) OneTouch Ultra Test Strip See Rx Instructions .ROUTE .MEDSUPPLY Qty: 200 3RF Rx Instructions: Check blood sugar twice a day clopidogrel 75 mg tablet 75 mg PO DAILY Qty: 90 3RF mirtazapine 30 mg tablet 15 mg PO QHS Qty: 90 3RF Discharge Instructions Instructions: Urinary Tract Infection, Adult ED, Urinary tract infection - Discharge instructions Stand Alone Forms: Portal Information Referrals: Adebayo Jensen, [employer] [Primary Care Provider, Medicine] - 05/27/25 Referral Note: please call for follow up Discharge Data Discharge Physician: Fausto Lizama [facility] General Date/Time Provider Initiated Documentation: 05/23/25 13:49. HPI Narrative: Patient presents emergency department stating that she had not had any stroke last time she had insomnia but was restless as well as seeing things and then felt that she was in there and that her speech sometimes gets slurred but denies any left or right-sided weakness states that travels at times. Reports that she has some hallucinations that there is some animals in her room. Related Data Home Medications Medication Instructions Recorded Confirmed clonazepam 1 mg tablet (Klonopin) 1 mg .Route HS #60 tab-caps 12/02/20 03/22/25 blood sugar diagnostic (OneTouch #200 ea 12/07/22 03/22/25 Ultra Test strips) clopidogrel 75 mg tablet 75 mg PO DAILY #90 tabs 06/27/24 03/22/25 mirtazapine 30 mg tablet 15 mg (1/2 x 30 mg) PO QHS #90 tabs 06/27/24 03/22/25 amlodipine 5 mg tablet 5 mg PO DAILY #90 tabs 02/05/25 03/22/25 pregabalin 300 mg capsule 300 mg PO DIRECTED #90 caps 02/05/25 03/22/25 rosuvastatin 20 mg tablet (Crestor) 20 mg PO QPM #90 tabs 02/05/25 03/22/25 amoxicillin 875 mg-potassium 1 tab PO BID #14 tabs 05/23/25 clavulanate 125 mg tablet Previous Rx's Medication Instructions Recorded clonazepam 1 mg tablet (Klonopin) 1 mg .Route HS #60 tab-caps 12/02/20 blood sugar diagnostic (OneTouch #200 ea 12/07/22 Ultra Test strips) clopidogrel 75 mg tablet 75 mg PO DAILY #90 tabs 06/27/24 mirtazapine 30 mg tablet 15 mg (1/2 x 30 mg) PO QHS #90 tabs 06/27/24 amlodipine 5 mg tablet 5 mg PO DAILY #90 tabs 02/05/25 pregabalin 300 mg capsule 300 mg PO DIRECTED #90 caps 02/05/25 rosuvastatin 20 mg tablet (Crestor) 20 mg PO QPM #90 tabs 02/05/25 amoxicillin 875 mg-potassium 1 tab PO BID #14 tabs 05/23/25 clavulanate 125 mg tablet Allergies Allergy/AdvReac Type Severity Reaction Status Date / Time adhesive Allergy Intermediate Skin Rash Verified 03/22/25 09:39 doxycycline Allergy Unknown HIVES Verified 03/22/25 09:39 duloxetine (Duloxetine) AdvReac Severe AGITATION Verified 03/22/25 09:39 Mrllbak-PDF-NaZ Reductase AdvReac Severe Myalgias Verified 03/22/25 09:39 Inhibitor (Htbobzx-Hbu-Rin Reductase Inhibitor) paroxetine AdvReac Intermediate IRRITABILIT Verified 03/22/25 09:39 Y gabapentin AdvReac Mild Interacts Verified 03/22/25 09:39 with other prescribed medications steristrips Allergy Intermediate glue Uncoded 03/22/25 09:39 causes blisters sx azul Allergy Intermediate blisters Uncoded 03/22/25 09:39 METAL Allergy Mild Skin Rash Uncoded 03/22/25 09:39 General Stated Complaint: PsychEval VERO: 2 Review of Systems Narrative: Review of Systems: Constitutional: No fevers, chills, sweats Eye: No recent visual problems ENT: No ear pain, nasal congestion, sore throat Respiratory: No shortness of breath, cough Cardiovascular: No Chest pain, palpitations, syncope Gastrointestinal: No nausea, vomiting, diarrhea Genitourinary: No hematuria Case/Lymph: Negative for bruising tendency, swollen lymph glands Endocrine: Negative for excessive thirst, excessive hunger Musculoskeletal: No back pain, neck pain, joint pain, muscle pain, decreased range of motion Integumentary: No rash, pruritus, abrasions Neurologic: Alert & oriented X 4 Psychiatric: No anxiety, depression Exam Narrative Exam Narrative: Exam; vitals signs as reported above normal Constitutional; In no acute distress, afebrile General: cooperative, healthy appearing, comfortable and no acute distress HEENT: Head: normal to inspection, no palpable skull fracture and normocephalic atraumatic Eyes: : appearance normal, both eyes and all related structures EOM intact bilaterally Pupils: PERRL : conjunctiva normal Direct ophthalmoscopy: normal light reflex, normal conjunctiva, normal visual acuity Ears: Normal TM, normal external canal Nose: normal no rhinorreha Neck no JVD, supple non tender Neck: normal visual inspection, full ROM and no lymphadenopathy Chest: normal inspection of the chest Respiratory : normal respiratory effort and able to speak in complete sentences no wheezing no rales Cardio Rate: regular rate, rhythm: regular rhythm normal heart sounds S1 and S2 no murmurs, gallops, or rubs GI : normal to inspection, normal bowel sounds, soft, non tender, non distended, no organomegaly Back/Spine/ no CVA tenderness Thoracic/Lumbar Spine: no tenderness or deformities Skin no rashes or lesions Neuro: patient alert oriented x 4 and no meningeal signs, Cranial Nerves: CN's II-XI intact bilaterally, Cognition: normal cognition, Speech: speech normal, Gait: normal gait, Depp tendon reflexes normal 2+ muscle strength 5/5 bilaterally Extremities, no edema, full range of motion, normal strength NIH score of 0 Course Vital Signs Vital signs: Vital Signs Temperature 36.7 C 05/23/25 13:34 Pulse 64 05/23/25 13:34 Respiratory Rate 20 05/23/25 13:34 Blood Pressure 126/85 05/23/25 13:34 Pulse Oximetry 96 05/23/25 13:34 Temperature 36.7 C 05/23/25 13:34 Pulse 64 05/23/25 13:34 Respiratory Rate 20 05/23/25 13:34 Blood Pressure 126/85 05/23/25 13:34 Blood Pressure Position Sitting 05/23/25 13:34 Pulse Oximetry 96 05/23/25 13:34 Oxygen Delivery Method Room Air 05/23/25 13:34 Oxygen Flow Rate 0 05/23/25 13:34 Medical Decision Making MDM: Summary: Patient presents to the emergency department complaining of nonspecific symptoms of weakness but urinary score was 0 CAT scan was negative and labs were unremarkable it was noted that she has sinus bradycardia to the high 40s but when she ambulates it goes up to 60. EKG does not show any heart block. She does take amlodipine and be the culprit of the bradycardia. She is able to ambulate in the emergency department and your only abnormality is pyuria with bacteria. She will be treated with a UTI and she will need to follow-up with her primary care physician and ask if she want to stay in the hospital for monitoring but she declined and wants to go home at this time and states it feels better+ Data Review Analysis All the data on this patient was reviewed by me including laboratory and imaging studies as well as bedside studies performed by me Independent review of Studies Imaging CT scan is negative Lab: Labs unremarkable except for pyuria Risk Stratification: Patient with sinus bradycardia and pyuria will be discharged home on antibiotics Differential Diagnosis: 1. UTI 2.sinus bradycardia 3. 4. 5. Consultants: Shared disposition: Patient understands disposition she requested a walker but the one at home is not working and she will be discharged home Impression: Medical Records Medical records reviewed: Yes I reviewed the patient's medical records. Imaging Data Radiologic Study: Attestation: I personally reviewed and interpreted this imaging study as follows: Imaging: CT Scan Radiologist's impression: Imaging Reports Patient Name: Kemi Tanner Unit #: [id number] Loc: ER Ordering Provider: Fausto Lizama M.D. Status: REG ER Primary Care Provider: Adebayo Jensen NP Date of Exam: 05/23/25 Sex: F : 1950 Age: 74 Exam(s) a CT:CT head wo Exam(s) CT HEAD WO EXAM: CT HEAD WO CLINICAL HISTORY: slurred speech at times. TECHNIQUE: Imaging Protocol: Axial computed tomography images with coronal and sagittal reformatted images were created and reviewed COMPARISON: CT CT HEAD CERVICAL SPINE WO from 07/23/2020 FINDINGS: There are no skull fractures. There is no fluid in the visualized paranasal sinuses. There is no evidence of intracranial hemorrhage, mass effect, or shift of midline structures. There are no extra-axial fluid collections. The ventricles are not enlarged or shifted and there is no blood within the ventricular system nor within the basal cisterns. There is moderate bilateral periventricular hypodensity consistent with chronic small vessel disease. No obvious acute infarct. There use also symmetrical atrophy of the cerebellar hemispheres. IMPRESSION: No acute intracranial findings on this noninfused CT scan of the brain. There is symmetrical cerebellar atrophy. There is moderate amount of bilateral periventricular hypodensity consistent with chronic small vessel disease. No obvious acute infarct If clinically indicated follow-up MRI with diffusion imaging can be performed. ECG Data Attestation: I personally reviewed and interpreted this ECG (s) as follows: Prior ECG tracings: available for review Interpretation: Sinus bradycardia heart rate [address]-T changes Quality:SDOH Health Related Social Needs: Health related social needs lonely/isolated PFSH All Active Problems (Updated 05/23/25 @ 21:35 by Fausto Lizama MD) Bradycardia, sinus (Acute) Acute UTI (urinary tract infection) (Acute) Contusion of right knee (Acute) Left knee DJD (Chronic) Medication monitoring encounter (Acute) Right hip pain (Acute) Chronic prescription benzodiazepine use (Acute) Left upper quadrant abdominal pain (Acute) Psychological and behavioral factors associated with disorders or diseases classified elsewhere (Acute) Chronic pain (Chronic) Left hip pain (Acute) Right ankle pain (Acute) Chronic pain syndrome (Chronic) Lumbar radiculitis (Acute) Sacroiliac joint dysfunction of both sides (Acute) Elevated parathyroid hormone (Acute) Hammer toe of right foot (Acute) Insomnia (Acute) Diabetes type 2, uncontrolled (Acute) Lumbosacral spondylosis without myelopathy (Acute) 2020- pain clinic injections every fall Asthma (Acute) inhaler as needed Venous insufficiency of left leg (Acute 02/28/18) 2020- chronic and stable Balance problem (Acute 05/08/13) 2012 [facility] [place] neurology eval (MRI small vessel disease) Primary fibromyalgia syndrome (Acute) Dr Batista- [facility] [place] in past- now managed here Peripheral neuralgia (Acute) legs; MRI at [facility] [place] of back=neg. Obstructive sleep apnea syndrome (Acute) C-pap; clonazepam managed by [facility] Obesity (Acute) Gastric bypass 12/2001 ([facility] [place]) Low vitamin D level (Acute 11/21/15) Endocrinology [facility] [place] following vitamin D, Vitamin B12 & iron Hyperparathyroidism, unspecified (Acute) s/p gastric bypass follows endo [facility] [place] Hyperlipidemia (Acute) stable on current meds Hirsutism (Acute) Essential hypertension (Acute 04/12/13) Stable low salt diet Disorder of vitamin B12 (Acute) h/o gastric bypass Endocrinology following vitamin D, Vitamin B12 & iron Depressive disorder (Acute) stable on current meds Cerebrovascular accident (Acute 08/18/17) Continue plavix stressed need for ongoing exercise/ activity and need for lipid and HTN control ASCVD (arteriosclerotic cardiovascular disease) (Acute) ? HX of [place]; 07/19-MPI=old inf scar; no ischemia; LVEF-47%; MPI 11/19 neg. ischemia EF-43% echo 02/19- EF-65% NPDR (nonproliferative diabetic retinopathy) (Acute) Medical History Traumatic rotator cuff tear left- History of alcohol abuse (05/13/15) not drinking at this time Retinal detachment of both eyes with giant retinal tear (06/16/07) repaired Vasodepressor syncope (09/18/13) positive tilt test [facility] [place] 07/02/15 (neg EEG and neuro eval and mult neg Holter/Event monitors) Syncope (05/13/15) Shoulder pain right shoulder; MRI ([facility] [place])-R shoulder tendenosis Non-alcoholic fatty liver disease (12/25/12) [place] improved after gastric bypass ([facility] [place] bx) Neck pain 03/25-MRI [facility] [place]; neuro eval [facility] [place] Low back pain [facility] [place] pain clinic at [facility] Achilles tendon disorder (05/17/14) left, repeat surgery 2013 Primary fibromyalgia syndrome H/O ETOH abuse Cerebrovascular accident (CVA) due to stenosis of posterior cerebral artery Visual disturbance Retinal detachment Hyperparathyroidism Hyperlipidemia Hirsutism Migraine Headache Essential hypertension Herpes zoster Low vitamin D level HUSSEIN (obstructive sleep apnea) Low back pain with sciatica Carpal tunnel syndrome of right wrist Surgical History History of gastric bypass Endocrinology following vitamin D, Vitamin B12 & iron History of shoulder surgery PINKY REPAIR LEFT Abdominal hysterectomy (~1985) endometriosis; 1 ovary remains Gastric Bypass (~2001) Fracture, Open Treatment (~04/2006) INT FIX FINGER EXCISION OF SHOULDER (~09/2006) EXCISION OF RIGHT DISTAL CALVICLE Cholecystectomy (~1982) Arthroscopy, Shoulder (~07/2008) RIGHT Family History Mother , 87 Essential hypertension Heart disease Hyperlipidemia Asthma Lung cancer Father , 58 Heart disease Hyperlipidemia Alcohol abuse Brother Heart disease Substance abuse Maternal Grandfather Hyperlipidemia Paternal Grandfather No problems noted. Maternal Grandmother Kidney disease Paternal Grandmother No problems noted. Sister No problems noted. Social History Smoking/Tobacco Use Status: Former Tobacco Use tobacco type: cigarettes Quit Date: 07/18/83 Second Hand Exposure: Yes Smoking risk assessment performed?: Yes Alcohol Intake: former Drug use: Rarely Substance use type: painkillers Details: uses CBD oil Caregiver/Support person: No Household members: spouse Housing: apartment Communication Needs: None Do you need help understanding health information?: Often Pets and animals: Yes Pets and animals: dog(s) Sexually active: No Do you think of yourself as: straight/heterosexual Current gender identity: female What is your relationship status?: How often do you talk on the phone with friends or family?: three or more times per week How often do you get together with friends or relatives?: decline to answer How often do you attend confucianism or yazdanism services?: decline to answer Do you belong to any clubs or organized social groups?: no Panel score (0-1 are the most socially isolated patients): 2 What type of physical activity do you participate in: walking Frequency: daily Jodi/Scientology: No preference Special jodi needs: No Seatbelt use: always Drive intox or ride w/intox bung driver: No Do you feel safe at home: Yes Do you feel safe in your relationship?: Yes Vital Signs & Lab Results Vital Signs Most Recent Vital Signs: Most Recent Vital Signs Temp Pulse Resp BP Pulse Ox 36.7 C 64 20 126/85 96 05/23/25 13:34 05/23/25 13:34 05/23/25 13:34 05/23/25 13:34 05/23/25 13:34 Lab Results 05/23/25 14:40 05/23/25 14:40 Complete Blood Count: WBC, (4.4-10.8) 6.44 10^3/uL Today, 14:40 RBC, (3.93-5.22) 4.69 10^6/uL Today, 14:40 Hgb, (11.2-15.7) 13.0 g/dL Today, 14:40 Hct, (36.0-46.0) 40.3 % Today, 14:40 Plt Count, (130-400) 196 10^3/uL Today, 14:40 Complete Metabolic Panel: Sodium, (136-145) 144 mmol/L Today, 14:40 Potassium, (3.5-5.1) 4.1 mmol/L Today, 14:40 Chloride, (98-107) 108 mmol/L H Today, 14:40 Carbon Dioxide, (21.0-32.0) 28.8 mmol/L Today, 14:40 BUN, (7-18) 15 mg/dL Today, 14:40 Creatinine, (0.55-1.02) 1.0 mg/dL Today, 14:40 Est GFR (CKD-EPI 2020), (mL/min/1.73m2) 58.39 Today, 14:40 Calcium, (8.5-10.1) 9.2 mg/dL Today, 14:40 Albumin, (3.4-5.0) 3.6 g/dL Today, 14:40 Glucose, (74-106) 89 mg/dL Today, 14:40 Liver Function Panel: ALT, (14-59) 65 U/L H Today, 14:40 AST, (15-37) 56 U/L H Today, 14:40
--- NOTE | 2025-05-23 14:15 | DI.CT_ITS ---
Exam(s) CT HEAD WO EXAM: CT HEAD WO CLINICAL HISTORY: slurred speech at times. TECHNIQUE: Imaging Protocol: Axial computed tomography images with coronal and sagittal reformatted images were created and reviewed COMPARISON: CT CT HEAD CERVICAL SPINE WO from 07/23/2020 FINDINGS: There are no skull fractures. There is no fluid in the visualized paranasal sinuses. There is no evidence of intracranial hemorrhage, mass effect, or shift of midline structures. There are no extra-axial fluid collections. The ventricles are not enlarged or shifted and there is no blood within the ventricular system nor within the basal cisterns. There is moderate bilateral periventricular hypodensity consistent with chronic small vessel disease. No obvious acute infarct. There use also symmetrical atrophy of the cerebellar hemispheres. IMPRESSION: No acute intracranial findings on this noninfused CT scan of the brain. There is symmetrical cerebellar atrophy. There is moderate amount of bilateral periventricular hypodensity consistent with chronic small vessel disease. No obvious acute infarct If clinically indicated follow-up MRI with diffusion imaging can be performed. Report called by myself to ER physician 05/23/2025 at 3:07 p.m. RADIATION DOSE DELIVERED: 880.22mGy.cm Total DLP DATA REPOSITORY: All CT scans at this facility are submitted to the National Radiology Data Registry (NRDR) Dose Index Registry (DIR) with the [employer] (ACR). RADIATION OPTIMIZATION: All CT scans at this facility use at least one of these dose optimization techniques: automated exposure control; mA and/or kV adjustment per patient size (includes targeted exams where dose is matched to clinical indication); or iterative reconstruction.
[2025-05-23 14:45] LABS: Abs Immature Grans 0.02 10^3/uL (0.0-0.06); HCT 40.3 % (36.0-46.0); HGB 13.0 g/dL (11.2-15.7); Immature Grans % 0.3 %; MCH 27.7 pg (27.0-33.0); MCHC 32.3 % (32.0-36.0); MCV 86 fL (80-95); MPV 9.4 fL (8.0-11.0); Platelet Count 196 10^3/uL (130-400); RBC 4.69 10^6/uL (3.93-5.22); RDW 13.3 % (11.7-14.6); RDW-SD 41.2 fL; WBC 6.44 10^3/uL (4.4-10.8)
[2025-05-23 14:59] LABS: ALT 65 U/L (14-59); AST 56 U/L (15-37); Albumin 3.6 g/dL (3.4-5.0); Alkaline Phosphatase 110 U/L (46-116); Anion Gap 7.2 mmol/L (3-11); BUN 15 mg/dL (7-18); Bilirubin, Total 0.6 mg/dL (0.2-1.0); CO2 28.8 mmol/L (21.0-32.0); Calcium 9.2 mg/dL (8.5-10.1); Chloride 108 mmol/L (98-107); Glucose 89 mg/dL (74-106); Potassium 4.1 mmol/L (3.5-5.1); Sodium 144 mmol/L (136-145); Total Protein 6.7 g/dL (6.4-8.2)
--- NOTE | 2025-05-23 17:30 | RT.EKG_ITS ---
APPROVED REPORT Exam: Resting ECG Reason for Exam: bradycardia Patient Location: E HR:49 bpm ECG Measurements Heart Rate [address] 172 P 58 QRSd 169 QRS -53 QT 533 T 67 QTc 483 Conclusion Sinus bradycardia...rate< 60 RBBB and LAFB...QRSd >120mS, axis(-40,240) Probable left ventricular hypertrophy...(RaVL+SV3)xQRSd >300
[2025-05-23 18:58] VITALS: PULSE 49; RESP 18; O2SAT 99
--- NOTE | 2025-05-23 18:58 | NUR.NOTE ---
Nursing Note: Assumed care of patient at 1845.
[2025-05-23 19:59] VITALS: PULSE 47; O2SAT 99
--- NOTE | 2025-05-23 20:06 | NUR.NOTE ---
updated PTs daughter on PT status. Nursing Note:
--- NOTE | 2025-05-23 20:28 | NUR.NOTE ---
Nursing Note: The urine that was sent over earlier on this patient was mislabeled with a different patient sticker so therefore the UA results are delayed. New UA brought over with correct patient label to lab and lab made aware of other urine and it was disposed of. Provider made aware.
[2025-05-23 20:31] VITALS: PULSE 45; RESP 18; O2SAT 98
[2025-05-23 20:31] LABS: Glucose 100 mg/dL (Negative)
[2025-05-23 20:46] LABS: RBC Negative HPF (0-2)
[2025-05-23 20:47] LABS: C & S Indicated? No
[2025-05-23] MEDS: Amoxicillin 875/Clav. 125 TAB PO (21:15)
--- NOTE | 2025-05-25 11:05 | NUR.NOTE ---
Access chart to determine the reason for dispensing the walker on discharge for [facility] billing requisition. Nursing Note:
== END 2025-05-23 21:36 | disposition home or self-care (01) ==
PROVIDERS: Emergency Provider Emergency Medicine Emergency Medical Services; PCP Nurse Practitioner Family
DX: N39.0 Urinary tract infection, site not specified (principal); R00.1 Bradycardia, unspecified
CPT/HCPCS: 99284; 99285; 80053; 93005; 70450; 81003; 81015; 85025; 93010

== ENCOUNTER 2025-06-27 09:31 | Emergency (ER) | payer OTHER, SELFPAY ==
[2025-06-27] VITALS (55 sets, daily range): BP systolic 97–124; BP diastolic 55–68; PULSE 44–59; RESP 8–18; TEMP 36.5–37.9; O2SAT 86–97
--- NOTE | 2025-06-27 09:43 | ED.GENADUL_ITS ---
Discharge Plan Disposition Patient Disposition: Home Condition: Stable Discharge Details Clinical Impression: COVID-19, Urinary tract infection Primary Care Provider: Adebayo Jensen ED Provider: Jerry Krishnamurthy Home Meds and New Rx's Prescriptions: New cefpodoxime 200 mg tablet 200 mg PO BID 10 Days Qty: 20 0RF Rx Instructions: must administer with a meal/food Continued pregabalin 300 mg capsule 300 mg PO DIRECTED Qty: 90 1RF Rx Instructions: per rheumatology amlodipine 5 mg tablet 5 mg PO DAILY Qty: 90 4RF clonazepam [Klonopin] 1 mg tablet 1 mg .ROUTE HS Qty: 60 2RF Rx Instructions: 1.5 mg bedtime; (DME) OneTouch Ultra Test Strip See Rx Instructions .ROUTE .MEDSUPPLY Qty: 200 3RF Rx Instructions: Check blood sugar twice a day Discharge Instructions Instructions: Cefpodoxime, COVID-19 ED, Urinary Tract Infection, Adult ED Additional Instructions: You were seen in the emergency department for your upper respiratory infection body aches for a week, you are positive for COVID-19, you also have a urinary tract infection. Please take the prescribed cefpodoxime as prescribed for your UTI, purchase [id number] AZO to help with symptomatic relief of dysuria, stay well-hydrated, take Tylenol and ibuprofen for your COVID illness, you are at very low risk of progressing to severe disease as you are vaccinated and boosted, please return to the ER for any emergent concerns. CTs were negative, cardiac workup was negative today. Stand Alone Forms: Portal Information Referrals: Adebayo Jensen, [facility]P [facility] [Primary Care Provider, Medicine] Discharge Data Discharge Date/Time-TO BE ENTERED AT DEPARTURE: 06/27/25 15:17 HPI General Date/Time Provider Initiated Documentation: 06/27/25 09:34 . HPI Narrative: 74 year-old female presents to ED today by POV/ambulating with a chief complaint of UTI symptoms, but also separate issue of feeling run down all over, joint pain, weakness, body aches, cough, mild fevers with onset the past couple days. Quality described as generalized malaise, no radiation to crushing chest pain, shortness of breath, vomiting, diarrhea, black/bloody stools, abdominal pain. Severity is described as moderate. Palliating factors include nothing specific. Provoking factors include nothing specific. Events leading up to the incident/Associated Symptoms: Patient is UTD on all vaccinations. Patient not anticoagulated. Related Data Home Medications ?Medication ?Instructions ?Recorded ?Confirmed clonazepam 1 mg tablet (Klonopin) 1 mg .Route HS #60 t ab-caps 12/02/20 06/27/25 blood sugar diagnostic (OneTouch #200 ea 12/07/2206/17 Ultra Test strips) amlodipine 5 mg tablet 5 mg PO DAILY #90 tabs 02/0506/27/25 pregabalin 300 mg capsule 300 mg PO DIRECTED #90 ca ps 02/05/25 06/27/25 cefpodoxime 200 mg tablet 200 mg PO BID 10 days #20 ta bs 06/27/25 Previous Rx's ?Medication ?Instructions ?Recorded clonazepam 1 mg tablet (Klonopin) 1 mg .Route HS #60 t ab-caps 12/02/20 blood sugar diagnostic (OneTouch #200 ea 12/07/22 Ultra Test strips) amlodipine 5 mg tablet 5 mg PO DAILY #90 tabs 02/05 pregabalin 300 mg capsule 300 mg PO DIRECTED #90 ca ps 02/05/25 cefpodoxime 200 mg tablet 200 mg PO BID 10 days #20 ta bs 06/27/25 Allergies Allergy/AdvReac Type Severity Reaction Status Date / Time adhesive Allergy Intermediate Skin Rash Verified 06/27/25 09:43 doxycycline Allergy Unknown HIVES Verified 06/27/25 09:43 duloxetine (Duloxetine) AdvReac Severe AGITATION Verified 06/27/25 09:43 Vcuasfo-DMS-ZiA Reductase AdvReac Severe Myalgias Verified 06/27/25 09:43 Inhibitor (Sgybzbc-Fkj-Lcr Reductase Inhibitor) paroxetine AdvReac Intermediate IRRITABILIT Verified 06/27/25 09:43 Y gabapentin AdvReac Mild Interacts Verified 06/27/25 09:43 with other prescribed medications steristrips Allergy Intermediate glue Uncoded 06/27/25 09:43 causes blisters sx azul Allergy Intermediate blisters Uncoded 06/27/25 09:43 METAL Allergy Mild Skin Rash Uncoded 06/27/25 09:43 General Stated Complaint: GenMedical VERO: 3 Review of Systems All systems reviewed & are unremarkable except as noted in HPI and below Exam Narrative Exam Narrative: GENERAL APPEARANCE: Well-nourished, non-toxic, awake and alert, atraumatic, mild acute distress. SKIN: Warm, pink, dry, intact, without rashes/lesions/ulcerations. HEAD: Normocephalic, atraumatic, normal hair distribution for gender/age. EYES: Normal conjunctiva, no exudates on lids/lashes. ENT: Nares patent, no circumoral cyanosis, no facial swelling NECK: Supple, trachea midline, painless cervical ROM. LUNGS/CHEST: Lungs -adventitious but no clear wheezing or rales or rhonchi, non- labored respirations, normal A/P diameter, symmetrical expansion, no chest wall deformity HEART (CV/PV): Regular rate and rhythm without murmur, no peripheral edema, no JVD. ABDOMEN: Soft, non-distended, no guarding, suprapubic tenderness without rebound tenderness, no CVA tenderness percussion bilaterally MSK: Normal ROM, no swelling/deformity to bilateral UEs or LEs, moving all extremities without weakness, no cyanosis, spine midline without tenderness, normal curvature. NEURO: Mental Status AAOx4 - alert to person, place, time, events No facial droop, no forehead involvement. Motor: No focal weakness - strength 5/5 in bilateral UEs and LEs, proximal and distal, symmetric. Sensory: sensation intact to light touch globally. Gait normal: patient ambulated without ataxia into ED room. PSYCH: euthymic, cooperative, pleasant, appropriate speech Course Vital Signs Vital signs: Vital Signs Temperature 36.5 C 06/27/25 09:38 Pulse 59 L 06/27/25 09:38 Respiratory Rate 18 06/27/25 09:38 Blood Pressure 97/66 L 06/27/25 09:38 Pulse Oximetry 94 06/27/25 09:38 Temperature 36.5 C 06/27/25 09:38 Temperature Source Temporal Artery Scan 06/27/25 09:38 Pulse 59 L 06/27/25 09:38 Respiratory Rate 18 06/27/25 09:38 Blood Pressure 97/66 L 06/27/25 09:38 Blood Pressure Position Sitting 06/27/25 09:38 Pulse Oximetry 94 06/27/25 09:38 Oxygen Delivery Method Room Air 06/27/25 09:38 Oxygen Flow Rate 0 06/27/25 09:38 Pain Level 7 06/27/25 09:38 Medical Decision Making This dictation utilizes rrxqo-mi-njcy dictation software and may contain unedited grammatical errors. 74 year-old female presents to ED today by POV/ambulating with a chief complaint of UTI symptoms, but also separate issue of feeling run down all over, joint pain, weakness, body aches, cough, mild fevers with onset the past couple days. Quality described as generalized malaise, no radiation to crushing chest pain, shortness of breath, vomiting, diarrhea, black/bloody stools, abdominal pain. Severity is described as moderate. Palliating factors include nothing specific. Provoking factors include nothing specific. Events leading up to the incident/Associated Symptoms: Patient is UTD on all vaccinations. Patients' medical history: History of alcohol abuse, fibromyalgia, history of CVA, history of retinal detachment and visual disturbance, hypertension, T2DM. Family and social history: No recent travel, endorses that her landlady is sick. Pertinent exam findings / vital signs include lungs coarse and adventitious but no wheezing, nonhypoxic, benign abdomen with suprapubic discomfort but no rebound tenderness, no CVA tenderness to percussion bilaterally. Differential / pathologies of concern include viral syndrome, PE, ACS, UTI, biliary colic, pyelonephritis. Diagnostic studies of: - CBC, CMP, D-dimer, lactate, lipase, troponin, UA, respiratory PCR swab, CTA renal colic without, CTA chest PE Study, EKG. - CBC shows no acute abnormalities - CMP is mildly low potassium slightly elevated sodium likely in the setting of hemoconcentration, just above normal LFTs - Lipase within normal limits - Magnesium within normal limits - Troponin negative with reliable onset - Lactate is 1.5 do not suspect sepsis - D-dimer 1300, refluxing to CTA chest - PCR swab shows positive for COVID-19 - UA shows UTI - CT renal colic study shows no acute abnormality, no kidney stones - CTA of the chest shows no PE or other abnormality - EKG shows sinus bradycardia at 52 bpm with right bundle branch block and left anterior fascicular block consistent with priors, no ST changes, no new T wave abnormalities, no STEMI Interventions of: -P.o. potassium, p.o. acetaminophen, p.o. Motrin, 500 mL IVF NS. ED Course/Assessment/Plan: 74-year-old female presents with generalized viral syndrome as well as UTI symptoms, her desire is sick, she tested positive for COVID 19 and is vaccinated and boosted. Her CTA of her chest was negative for any PE or other pneumonia, there is no significant ground glass opacities seen, cardiac workup negative, no elevation of leukocytes and a normal lactate indicating no sepsis, she is in no respiratory distress, she has mildly low potassium which I counseled her on eating a high potassium diet but this should normalize with good oral intake, has UTI which I prescribed her cefpodoxime for, strict return criteria for any profound lethargy or respiratory distress or any other emergent concerns. Findings not consistent with PE, ACS, myocarditis, pyelonephritis, infected kidney stone, obstructive uropathy, biliary colic, severe electrolyte derangement. Disposition of Covid-19, Urinary Tract Infection. Patient verbalized understanding of the plan and return to ED criteria and engaged in shared decision making. Medical Records Medical records reviewed: Yes I reviewed the patient's medical records. Imaging Data Radiologic Study: Attestation: I personally reviewed and interpreted this imaging study as follows: Imaging: CT Scan Radiologist's impression: EXAM: CT RENAL COLIC WO CLINICAL HISTORY: R CVA tenderness. TECHNIQUE: Imaging Protocol: Axial computed tomography images with coronal and sagittal reformatted images were created and reviewed. COMPARISON: CT ABD PELVIS WITH CONTRAST from 02/04/2009 FINDINGS: Lung Bases: No acute findings. Liver: Normal density. No measurable mass. Gallbladder and biliary tract: Cholecystectomy.. Common bile duct is dilated to 2 centimeters. This appears unchanged from the prior exam 2008. Pancreas: No abnormal calcifications or inflammatory process. Spleen: Normal size. Kidneys: Normal size, contour and axis.No radiodense stones or obstructive uropathy. No suspicious masses seen. Adrenal glands: No mass is seen. Lymph nodes: Within normal limits. Vasculature: Abdominal aorta non-dilated. Bladder:No stones. No gross wall thickening. No evidence of mass. Bowel: Suture material at fundus of stomach. Small bowel anastomosis. No obstruction. No bowel wall thickening. Peritoneal cavity: No ascites.No free air. No focal collection. No mesenteric inflammatory response. Reproductive organs: Hysterectomy. Bones: Scoliosis and degenerative changes. Soft Tissues: Within normal limits. IMPRESSION: No acute abnormality in the abdomen and pelvis. Radiologic Study #2: Attestation: I personally reviewed and interpreted this imaging study as follows: Imaging: CT Scan Radiologist's impression: EXAM: CT CHEST PE CTA CLINICAL HISTORY: intermittent R sided CP, covid +, elev d-dimer. TECHNIQUE: Imaging Protocol: Axial CT angiography was performed with multi- slice acquisition and multi-planar reconstructions as well as axial, coronal and sagittal MIP reconstructions. Computer aided detection (CAD) was utilized. CONTRAST MATERIAL: Intravenous: Omnipaque 350 Contrast volume:85 ml COMPARISON: CR XR PORTABLE CHEST AP from 01/22/2020 FINDINGS: Pulmonary Arteries: No evidence of filling defect to suggest pulmonary emboli. Mediastinum and Анна: No dominant adenopathy or fluid collection. Pulmonary parenchyma: No consolidation or dominant measurable mass. No ground- glass infiltrates. Pleura: No effusion or pneumothorax. Heart: The heart is mildly dilated. No coronary artery calcifications are seen. Aorta: Thoracic aorta non-dilated. No dissection. Upper abdomen: No acute findings. Suture material at fundus of stomach. Cholecystectomy. Bones: Unremarkable for age. Tubes, Catheters, and Lines: None Soft tissues: Unremarkable. IMPRESSION: No evidence of pulmonary embolism or other acute abnormality. Lab Data Lab results reviewed: Yes I reviewed the patient's lab results. Labs: 06/27/25 10:00 Urine - Reflex from Ua Urine Culture - Pending Laboratory Tests Range/Units 06/27/25 06/27/25 06/27/25 09:52 10:00 10:14 WBC (4.4-10.8) 10^3/uL 6.66 RBC (3.93-5.22) 10^6/uL 4.83 Hgb (11.2-15.7) g/dL 13.4 Hct (36.0-46.0) % 40.5 MCV (80-95) fL 84 MCH (27.0-33.0) pg 27.7 MCHC (32.0-36.0) % 33.1 RDW (11.7-14.6) % 14.2 Plt Count (130-400) 10^3/uL 202 MPV (8.0-11.0) fL 8.9 Immature Gran % % 0.3 Neutrophils % % 72.4 Lymphocytes % % 16.7 Monocytes % % 7.8 Eosinophils % % 2.3 Basophils % % 0.5 Nucleated RBC % (0.0-0.3) % 0.0 Absolute Neutrophils (1.2-6.7) 10^3/uL 4.83 Absolute Lymphocytes (1.2-3.4) 10^3/uL 1.11 L Absolute Monocytes (0.1-0.8) 10^3/uL 0.52 Absolute Eosinophils (0.0-0.7) 10^3/uL 0.15 Absolute Basophils (0.0-0.2) 10^3/uL 0.03 D-Dimer (<500) ng/mlFEU VBG Lactate (<or=2.0) mmol/L 1.5 Sodium (136-145) mmol/L 146 H Potassium (3.5-5.1) mmol/L 3.3 L Chloride (98-107) mmol/L 110 H Carbon Dioxide (20.0-31.0) mmol/L 25.6 Anion Gap (3-11) mmol/L 10.4 BUN (9-23) mg/dL 13 Creatinine (0.55-1.02) mg/dL 0.92 Est GFR (CKD-EPI 2020) (mL/min/1.73m2) 59.26 Glucose (74-106) mg/dL 128 H Calcium (8.3-10.6) mg/dL 9.3 Magnesium (1.6-2.6) mg/dL 2.3 Total Bilirubin (0.2-1.2) mg/dL 0.8 AST (<34) U/L 55 H ALT (10-49) U/L 57 H Alkaline Phosphatase (46-116) U/L 112 Troponin I (<35) ng/L 7 Total Protein (5.7-8.2) g/dL 6.7 Albumin (3.2-5.0) g/dL 4.1 Lipase (<53) U/L 24 Urine Color (Yellow) Yellow Urine Clarity (Clear) Cloudy Urine pH (5-8) 5.5 Ur Specific [place] (1.005-1.025) 1.025 Urine Protein (Neg-Trace) mg/dL Trace Urine Ketones (Negative) mg/dL Trace H Urine Blood (Negative) Negative Urine Nitrite (Negative) Negative Urine Bilirubin (Negative) Negative Urine Urobilinogen (Up to 0.2) mg/dL 1.0 H Ur Leukocyte Esterase (Negative) Moderate H Urine RBC (0-2) HPF 0-2 Urine WBC (0-5) HPF 10-20 H Ur Epithelial Cells (Negative) HPF Few Urine Crystals (Negative) HPF Negative Urine Bacteria (Negative) HPF Moderate Urine Casts (Negative) LPF 5-10 Hyaline Urine Mucus (Negative) Moderate Ur Culture Indicated? Yes Urine Glucose (Negative) mg/dL Negative COVID-19 Source SARS-CoV-2 (PCR) (Negative) Influenza Type A (PCR) (Negative) Influenza Type B (PCR) (Negative) RSV (PCR) (Negative) Range/Units 06/27/25 06/27/25 10:15 10:24 WBC (4.4-10.8) 10^3/uL RBC (3.93-5.22) 10^6/uL Hgb (11.2-15.7) g/dL Hct (36.0-46.0) % MCV (80-95) fL MCH (27.0-33.0) pg MCHC (32.0-36.0) % RDW (11.7-14.6) % Plt Count (130-400) 10^3/uL MPV (8.0-11.0) fL Immature Gran % % Neutrophils % % Lymphocytes % % Monocytes % % Eosinophils % % Basophils % % Nucleated RBC % (0.0-0.3) % Absolute Neutrophils (1.2-6.7) 10^3/uL Absolute Lymphocytes (1.2-3.4) 10^3/uL Absolute Monocytes (0.1-0.8) 10^3/uL Absolute Eosinophils (0.0-0.7) 10^3/uL Absolute Basophils (0.0-0.2) 10^3/uL D-Dimer (<500) ng/mlFEU 1292 H VBG Lactate (<or=2.0) mmol/L Sodium (136-145) mmol/L Potassium (3.5-5.1) mmol/L Chloride (98-107) mmol/L Carbon Dioxide (20.0-31.0) mmol/L Anion Gap (3-11) mmol/L BUN (9-23) mg/dL Creatinine (0.55-1.02) mg/dL Est GFR (CKD-EPI 2020) (mL/min/1.73m2) Glucose (74-106) mg/dL Calcium (8.3-10.6) mg/dL Magnesium (1.6-2.6) mg/dL Total Bilirubin (0.2-1.2) mg/dL AST (<34) U/L ALT (10-49) U/L Alkaline Phosphatase (46-116) U/L Troponin I (<35) ng/L Total Protein (5.7-8.2) g/dL Albumin (3.2-5.0) g/dL Lipase (<53) U/L Urine Color (Yellow) Urine Clarity (Clear) Urine pH (5-8) Ur Specific [place] (1.005-1.025) Urine Protein (Neg-Trace) mg/dL Urine Ketones (Negative) mg/dL Urine Blood (Negative) Urine Nitrite (Negative) Urine Bilirubin (Negative) Urine Urobilinogen (Up to 0.2) mg/dL Ur Leukocyte Esterase (Negative) Urine RBC (0-2) HPF Urine WBC (0-5) HPF Ur Epithelial Cells (Negative) HPF Urine Crystals (Negative) HPF Urine Bacteria (Negative) HPF Urine Casts (Negative) LPF Urine Mucus (Negative) Ur Culture Indicated? Urine Glucose (Negative) mg/dL COVID-19 Source Nasopharynx SARS-CoV-2 (PCR) (Negative) Positive A Influenza Type A (PCR) (Negative) Negative Influenza Type B (PCR) (Negative) Negative RSV (PCR) (Negative) Negative Quality:SDOH Health Related Social Needs: Health related social needs lonely/isolated PFSH All Active Problems (Updated 06/27/25 @ 13:45 by LUKE Mckeon) Urinary tract infection (Acute) COVID-19 (Acute) Contusion of right knee (Acute) Left knee DJD (Chronic) Medication monitoring encounter (Acute) Right hip pain (Acute) Chronic prescription benzodiazepine use (Acute) Left upper quadrant abdominal pain (Acute) Psychological and behavioral factors associated with disorders or diseases classified elsewhere (Acute) Chronic pain (Chronic) Left hip pain (Acute) Right ankle pain (Acute) Chronic pain syndrome (Chronic) Lumbar radiculitis (Acute) Sacroiliac joint dysfunction of both sides (Acute) Elevated parathyroid hormone (Acute) Hammer toe of right foot (Acute) Insomnia (Acute) Diabetes type 2, uncontrolled (Acute) Lumbosacral spondylosis without myelopathy (Acute) 2020- pain clinic injections every fall Asthma (Acute) inhaler as needed Venous insufficiency of left leg (Acute 02/28/18) 2020- chronic and stable Balance problem (Acute 05/08/13) 2012 [facility] [place] (MRI small vessel disease) Primary fibromyalgia syndrome (Acute) Dr Batista- [facility] [place] in past- now managed here Peripheral neuralgia (Acute) legs; MRI at [facility] [place] of back=neg. Obstructive sleep apnea syndrome (Acute) C-pap; clonazepam [place] [facility] Obesity (Acute) Gastric bypass 12/2001 [place] [place] Low vitamin D level (Acute 11/21/15) Endocrinology [facility] [place] following vitamin D, Vitamin B12 & iron Hyperparathyroidism, unspecified (Acute) s/p gastric bypass follows endo [facility] [place] Hyperlipidemia (Acute) stable on current meds Hirsutism (Acute) Essential hypertension (Acute 04/12/13) Stable low salt diet Disorder of vitamin B12 (Acute) h/o gastric bypass Endocrinology following vitamin D, Vitamin B12 & iron Depressive disorder (Acute) stable on current meds Cerebrovascular accident (Acute 08/18/17) Continue plavix stressed need for ongoing exercise/ activity and need for lipid and HTN control ASCVD (arteriosclerotic cardiovascular disease) (Acute) ? HX of NC; 07/19-MPI=old inf scar; no ischemia; LVEF-47%; MPI 11/19 neg. ischemia EF-43% echo 02/19- EF-65% NPDR (nonproliferative diabetic retinopathy) (Acute) Medical History Traumatic rotator cuff tear left- History of alcohol abuse (05/13/15) not drinking at this time Retinal detachment of both eyes with giant retinal tear (06/16/07) repaired Vasodepressor syncope (09/18/13) positive tilt test [facility] [place] 07/02/15 (neg EEG and neuro eval and mult neg Holter/Event monitors) Syncope (05/13/15) Shoulder pain right shoulder; MRI ([facility] [place]R shoulder tendenosis Non-alcoholic fatty liver disease (12/25/12) [place] improved after gastric bypass ([facility] [place] bx) Neck pain 03/25-MRI [facility] [place]; neuro eval [facility] [place] Low back pain [facility] [place] [facility] Achilles tendon disorder (05/17/14) left, repeat surgery 2013 Primary fibromyalgia syndrome H/O ETOH abuse Cerebrovascular accident (CVA) due to stenosis of posterior cerebral artery Visual disturbance Retinal detachment Hyperparathyroidism Hyperlipidemia Hirsutism Migraine Headache Essential hypertension Herpes zoster Low vitamin D level HUSSEIN (obstructive sleep apnea) Low back pain with sciatica Carpal tunnel syndrome of right wrist Surgical History History of gastric bypass Endocrinology following vitamin D, Vitamin B12 & iron History of shoulder surgery PINKY REPAIR LEFT Abdominal hysterectomy (~1985) endometriosis; 1 ovary remains Gastric Bypass (~2001) Fracture, Open Treatment (~04/2006) INT FIX FINGER EXCISION OF SHOULDER (~09/2006) EXCISION OF RIGHT DISTAL CALVICLE Cholecystectomy (~1982) Arthroscopy, Shoulder (~07/2008) RIGHT Family History Mother , 87 Essential hypertension Heart disease Hyperlipidemia Asthma Lung cancer Father , 58 Heart disease Hyperlipidemia Alcohol abuse Brother Heart disease Substance abuse Maternal Grandfather Hyperlipidemia Paternal Grandfather No problems noted. Maternal Grandmother Kidney disease Paternal Grandmother No problems noted. Sister No problems noted. Social History Smoking/Tobacco Use Status: Former Tobacco Use tobacco type: cigarettes Quit Date: 07/18/83 Second Hand Exposure: Yes Smoking risk assessment performed?: Yes Alcohol Intake: former Drug use: Rarely Substance use type: painkillers Details: uses CBD oil Caregiver/Support person: No Household members: spouse Housing: apartment Communication Needs: None Do you need help understanding health information?: Often Pets and animals: Yes Pets and animals: dog(s) Sexually active: No Do you think of yourself as: straight/heterosexual Current gender identity: female What is your relationship status?: How often do you talk on the phone with friends or family?: three or more times per week How often do you get together with friends or relatives?: decline to answer How often do you attend mormon or taoist services?: decline to answer Do you belong to any clubs or organized social groups?: no Panel score (0-1 are the most socially isolated patients): 2 What type of physical activity do you participate in: walking Frequency: daily Jodi/Rastafari: No preference Special jodi needs: No Seatbelt use: always Drive intox or ride w/intox tilt tray driver: No Do you feel safe at home: Yes Do you feel safe in your relationship?: Yes
--- NOTE | 2025-06-27 09:45 | RT.EKG_ITS ---
APPROVED REPORT Exam: Resting ECG Reason for Exam: intermittent chest pain Patient Location: E HR:52 bpm ECG Measurements Heart Rate 52 AXIS WI 160 P 28 QRSd 164 QRS -49 QT 492 T 34 QTc 456 Conclusion Sinus bradycardia, rate 52 RBBB and LAFB, unchanged from priors No STEMI No interval abnormalities otherwise
--- NOTE | 2025-06-27 09:45 | DI.CT_ITS ---
Exam(s) CT RENAL COLIC WO EXAM: CT RENAL COLIC WO CLINICAL HISTORY: R CVA tenderness. TECHNIQUE: Imaging Protocol: Axial computed tomography images with coronal and sagittal reformatted images were created and reviewed. COMPARISON: CT ABD PELVIS WITH CONTRAST from 02/04/2009 FINDINGS: Lung Bases: No acute findings. Liver: Normal density. No measurable mass. Gallbladder and biliary tract: Cholecystectomy.. Common bile duct is dilated to 2 centimeters. This appears unchanged from the prior exam 2008. Pancreas: No abnormal calcifications or inflammatory process. Spleen: Normal size. Kidneys: Normal size, contour and axis.No radiodense stones or obstructive uropathy. No suspicious masses seen. Adrenal glands: No mass is seen. Lymph nodes: Within normal limits. Vasculature: Abdominal aorta non-dilated. Bladder:No stones. No gross wall thickening. No evidence of mass. Bowel: Suture material at fundus of stomach. Small bowel anastomosis. No obstruction. No bowel wall thickening. Peritoneal cavity: No ascites.No free air. No focal collection. No mesenteric inflammatory response. Reproductive organs: Hysterectomy. Bones: Scoliosis and degenerative changes. Soft Tissues: Within normal limits. IMPRESSION: No acute abnormality in the abdomen and pelvis. RADIATION DOSE DELIVERED: 637.92mGy.cm Total DLP 637.92mGy.cm Total DLP DATA REPOSITORY: All CT scans at this facility are submitted to the National Radiology Data Registry (NRDR) Dose Index Registry (DIR) with the [employer] ([employer]). RADIATION OPTIMIZATION: All CT scans at this facility use at least one of these dose optimization techniques: automated exposure control; mA and/or kV adjustment per patient size (includes targeted exams where dose is matched to clinical indication); or iterative reconstruction.
[2025-06-27 10:18] LABS: Glucose Negative (Negative)
[2025-06-27 10:23] LABS: Abs Immature Grans 0.02 10^3/uL (0.0-0.06); HCT 40.5 % (36.0-46.0); HGB 13.4 g/dL (11.2-15.7); Immature Grans % 0.3 %; MCH 27.7 pg (27.0-33.0); MCHC 33.1 % (32.0-36.0); MCV 84 fL (80-95); MPV 8.9 fL (8.0-11.0); Platelet Count 202 10^3/uL (130-400); RBC 4.83 10^6/uL (3.93-5.22); RDW 14.2 % (11.7-14.6); RDW-SD 43.6 fL; WBC 6.66 10^3/uL (4.4-10.8)
[2025-06-27 10:41] LABS: C & S Indicated? Yes; RBC 0-2 HPF (0-2)
[2025-06-27 11:04] LABS: D-Dimer 1292 ng/mlFEU (<500)
[2025-06-27 11:04] LABS: RSV PCR Negative (Negative)
[2025-06-27 11:07] LABS: Lipase 24 U/L (<53)
[2025-06-27 11:08] LABS: Magnesium 2.3 mg/dL (1.6-2.6)
[2025-06-27 11:08] LABS: COVID-19 PCR Positive (Negative)
[2025-06-27 11:09] LABS: ALT 57 U/L (10-49); AST 55 U/L (<34); Albumin 4.1 g/dL (3.2-5.0); Alkaline Phosphatase 112 U/L (46-116); Anion Gap 10.4 mmol/L (3-11); BUN 13 mg/dL (9-23); Bilirubin, Total 0.8 mg/dL (0.2-1.2); CO2 25.6 mmol/L (20.0-31.0); Calcium 9.3 mg/dL (8.3-10.6); Chloride 110 mmol/L (98-107); Glucose 128 mg/dL (74-106); Potassium 3.3 mmol/L (3.5-5.1); Sodium 146 mmol/L (136-145); Total Protein 6.7 g/dL (5.7-8.2); Troponin I 7 ng/L (<35)
[2025-06-27] MEDS: Potassium Chloride 20 MEQ TABCR 40 MEQ PO (11:16)
[2025-06-27] MEDS: Normal Saline 500 ML 1000 ML IV (11:17)
[2025-06-27] MEDS: Acetaminophen 325 MG TAB 650 MG PO (11:20)
[2025-06-27] MEDS: Ibuprofen 400 MG TAB PO (11:21)
--- NOTE | 2025-06-27 11:30 | DI.CT_ITS ---
Exam(s) CT CHEST PE CTA EXAM: CT CHEST PE CTA CLINICAL HISTORY: intermittent R sided CP, covid +, elev d-dimer. TECHNIQUE: Imaging Protocol: Axial CT angiography was performed with multi- slice acquisition and multi-planar reconstructions as well as axial, coronal and sagittal MIP reconstructions. Computer aided detection (CAD) was utilized. CONTRAST MATERIAL: Intravenous: Omnipaque 350 Contrast volume:85 ml COMPARISON: CR XR PORTABLE CHEST AP from 01/22/2020 FINDINGS: Pulmonary Arteries: No evidence of filling defect to suggest pulmonary emboli. Mediastinum and Анна: No dominant adenopathy or fluid collection. Pulmonary parenchyma: No consolidation or dominant measurable mass. No ground- glass infiltrates. Pleura: No effusion or pneumothorax. Heart: The heart is mildly dilated. No coronary artery calcifications are seen. Aorta: Thoracic aorta non-dilated. No dissection. Upper abdomen: No acute findings. Suture material at fundus of stomach. Cholecystectomy. Bones: Unremarkable for age. Tubes, Catheters, and Lines: None Soft tissues: Unremarkable. IMPRESSION: No evidence of pulmonary embolism or other acute abnormality. RADIATION DOSE DELIVERED: 93.98mGy.cm Total DLP DATA REPOSITORY: All CT scans at this facility are submitted to the National Radiology Data Registry (NRDR) Dose Index Registry (DIR) with the [employer] ([employer]). RADIATION OPTIMIZATION: All CT scans at this facility use at least one of these dose optimization techniques: automated exposure control; mA and/or kV adjustment per patient size (includes targeted exams where dose is matched to clinical indication); or iterative reconstruction.
--- NOTE | 2025-06-27 12:00 | RT.EKG_ITS ---
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 Otherwise, no interval abnormalities No STEMI No significant changes from prior
[2025-06-27] MEDS: Normal Saline - Diluent 50 ML VIAL IJ (12:27)
[2025-06-27] MEDS: Normal Saline Flush 10 ML SYR IVP (12:27)
[2025-06-27] MEDS: Omnipaque 350 MG/ML 500 ML BTL-Imaging package IJ (12:29)
== END 2025-06-27 15:17 | disposition home or self-care (01) ==
PROVIDERS: Emergency Provider Physician Assistant; PCP Nurse Practitioner Family
DX: U07.1 COVID-19 (principal); Z11.52 Encounter for screening for COVID-19; N39.0 Urinary tract infection, site not specified; Z60.8 Other problems related to social environment
CPT/HCPCS: 36415; 71275; 80053; 83690; 87637; 93005; 96360; 99285; 74176; 81003; 81015; 83605; 83735; 84484; 85025; 85379; 87086; 93010; 99284